=== PATIENT | female | born 1965 | race Caucasian/White ===

== ENCOUNTER 2018-06-17 14:09 | Outpatient (CLI) | payer OTHER, SELFPAY ==
--- NOTE | 2018-06-17 14:41 | DI.RAD_ITS ---
SYMPTOMS/DIAGNOSIS: LT SHOULDER PAIN, M25.512 LEFT SHOULDER: Five views were obtained. No bony or soft tissue abnormality is seen apart from slight hypertrophic degenerative change at the AC joint.
== END 2018-06-17 14:29 ==
PROVIDERS: PCP Family Medicine; Visit Provider Family Medicine
DX: M25.512 Pain in left shoulder (principal); M19.012 Primary osteoarthritis, left shoulder
CPT/HCPCS: 73030

== ENCOUNTER 2018-09-30 11:21 | Outpatient (REF) | payer OTHER, SELFPAY ==
[2018-10-02 11:18] LABS: Hepatitis C Ab w Rflx HCV PCR Negative (NEGAT)
== END 2018-09-30 11:41 ==
LOC: NCHCN 11:21
PROVIDERS: PCP Family Medicine; Visit Provider Family Medicine
DX: Z11.59 Encounter for screening for other viral diseases (principal); Z00.00 Encounter for general adult medical examination without abnormal findings
CPT/HCPCS: 86803

== ENCOUNTER 2018-11-13 12:01 | Outpatient (CLI) | payer OTHER, SELFPAY ==
--- NOTE | 2018-11-13 15:46 | DI.MAMMO_ITS ---
SYMPTOM/DIAGNOSIS: SCREENING, Z12.31 MAMMOGRAM: Mammograms were interpreted according to the usual protocol including computer analysis with CAD system, tomosynthesis and C view imaging. Comparison with prior examinations. Breast density C. No suspicious masses or microcalcifications are seen. There is no definite evidence of malignancy. IMPRESSION: Category 1 - C. Negative mammogram. Routine screening is recommended. [facility] ASSESSMENT OF FINDINGS: Negative. Category 1. Patient will receive a letter notifying them of these results. Bi-RADS category C. The breasts are heterogeneously dense, which may obscure small masses.
== END 2018-11-13 12:21 ==
PROVIDERS: PCP Family Medicine; Visit Provider Family Medicine
DX: Z12.31 Encounter for screening mammogram for malignant neoplasm of breast (principal)
CPT/HCPCS: 77063; 77067

== ENCOUNTER 2019-03-17 10:21 | Outpatient (CLI) | payer OTHER, SELFPAY ==
[2019-03-17 11:57] LABS: Anion Gap 7.3 mmol/L (3-11); BUN 15 mg/dL (7-18); CO2 29.7 mmol/L (21.0-32.0); CREATININE 0.59 mg/dL (0.55-1.02); Calcium 9.2 mg/dL (8.5-10.1); Calculated LDL 114 mg/dL; Chloride 107 mmol/L (98-107); Cholesterol 213 mg/dL (50-200); Glucose 90 mg/dL (70-100); HDL Cholesterol 81 mg/dL (40-60); Potassium 4.2 mmol/L (3.5-5.1); Sodium 144 mmol/L (136-145); Triglyceride 91 mg/dL (30-150)
== END 2019-03-17 10:41 ==
PROVIDERS: PCP Family Medicine; Visit Provider Family Medicine
DX: Z00.00 Encounter for general adult medical examination without abnormal findings (principal); Z13.220 Encounter for screening for lipoid disorders; Z13.228 Encounter for screening for other metabolic disorders
CPT/HCPCS: 36415; 80048; 80061; 83721

== ENCOUNTER 2019-07-10 03:10 | Outpatient (CLI) | payer OTHER, SELFPAY ==
--- NOTE | 2019-07-10 13:45 | DI.US_ITS ---
EXAM: US PELVIS AND TRANSVAGINAL CLINICAL HISTORY: PELVIC PAIN R10.2, 3-4 MONTHS ASSOCIATED W/ BACK PAIN TECHNIQUE: Ultrasound performed using standard protocol. COMPARISON: PELVIS AND TRANSVAG from 05/17/2011 FINDINGS: Pelvic ultrasound was performed transabdominal and transvaginally. Please see the accompanying data sheet for measurements of the pelvic structures. Left ovary is nonvisualized. Right ovary is normal in appearance. There is a 17 millimeter in diameter fundal fibroid, which lies adjacent to the endometrial stripe an d which may be submucosal. Endometrial stripe is 1-2 millimeters in thickness and appears homogeneou s. No free fluid identified in the cul-de-sac. Limited scanning of the kidneys is unremarkable. IMPRESSION: Probable small uterine fibroid as described above, which may be submucosal. No other significant fin dings. Nonvisualized left ovary.
== END 2019-07-10 03:30 ==
PROVIDERS: PCP Family Medicine; Visit Provider Family Medicine
DX: R10.2 Pelvic and perineal pain (principal); M54.5 Low back pain; D25.9 Leiomyoma of uterus, unspecified
CPT/HCPCS: 76830; 76856

== ENCOUNTER 2020-02-11 00:59 | Outpatient (CLI) | payer OTHER, SELFPAY ==
--- NOTE | 2020-02-11 | DI.MAMMO_ITS ---
EXAM: MG MAMMO SCREENING CLINICAL HISTORY: SCREENING, Z12.31 TECHNIQUE: Bilateral full field digital CC and MLO mammographic images were obtained with 3D tomosyn thesis and utilizing computer aided detection (CAD). COMPARISON: Available for comparison. FINDINGS: Masses/Architectural Distortion: None seen. Microcalcifications: No suspicious pleomorphic-type are seen. Skin Thickening/Nipple Retraction: None. IMPRESSION: 1. No significant interval change with no specific features of malignancy noted. 2. Unless there is more urgent need, screening mammography is recommended, as per [employer] guidelines. BI-RADS Category 1 - Negative Breast Density - Category B - Scattered areas of fibroglandular density A negative radiographic report should not delay biopsy if a dominant or clinically suspicious mass is present. Up to ten percent of cancers are not identified on mammography. A negative report may reinforce clinical impression. Adenosis and dense breasts may obscure an underlying neoplasm. False positive reports average 6 to 10%. Patient will receive a letter notifying them of these results.
== END 2020-02-11 01:19 ==
PROVIDERS: PCP Family Medicine; Visit Provider Family Medicine
DX: Z12.31 Encounter for screening mammogram for malignant neoplasm of breast (principal)
CPT/HCPCS: 77063; 77067

== ENCOUNTER 2021-04-20 12:35 | Outpatient (REF) | payer OTHER, SELFPAY ==
[2021-04-20 15:13] LABS: Bilirubin Small (Negative); Blood Negative (Negative); Clarity Clear (Clear); Glucose Negative (Negative); Ketones Trace mg/dL (Negative); Leukocyte Esterase Negative (Negative); Nitrite Negative (Negative); Specific Gravity 1.025 (1.005-1.025); Urobilinogen 0.2 EU/dL (Up TO 0.2)
== END 2021-04-20 12:36 | disposition home or self-care (01) ==
LOC: NCHCN 12:35
PROVIDERS: PCP Family Medicine; Visit Provider Family Medicine
DX: R30.0 Dysuria (principal)
CPT/HCPCS: 81003

== ENCOUNTER 2021-04-25 09:29 | Outpatient (CLI) | payer OTHER, SELFPAY ==
--- NOTE | 2021-04-25 | DI.MAMMO_ITS ---
Exam(s) MAMMO SCREENING EXAM: MAMMO SCREENING CLINICAL HISTORY: SCREENING, Z12.31. TECHNIQUE: Bilateral full field digital CC and MLO mammographic images were obtained with 3D tomosyn thesis and utilizing computer aided detection (CAD). COMPARISON: Prior mammograms dating back to 2010, the most recent being February 2020. FINDINGS: There has been no significant change in the appearance and distribution of the fibroglandular tissue. Asymmetric tissue in the right breast is unchanged from prior studies. There are no new spiculated masses nor malignant appearing microcalcification groups. There is no significant architectural distortion nor skin thickening-retraction. IMPRESSION: No radiographic evidence of malignancy. BI-RADS Category 1 - Negative Breast Density - Category B - Scattered areas of fibroglandular density Breast density Category C or D implies that the patient has dense breast tissue. Dense breast tissue can make it harder to find cancer on a mammogram. Dense breast tissue is also associated with an incr eased risk of breast cancer. This information about the result of the mammogram report was provided to the patient to raise their awareness. Use this report when you speak with the patient about their risks for breast cancer, which includes their family history. At that time, you may recommend additional screening tests (Ultrasoun d or MRI) as these tests may add significant information. A negative radiographic report should not delay biopsy if a dominant or clinically suspicious mass is present. Up to ten percent of cancers are not identified on mammography. A negative report may reinforce clinical impression. Adenosis and dense breasts may obscure an underlying neoplasm. False positive reports average 6 to 10%. Patient will receive a letter notifying them of these results.
--- NOTE | 2021-04-25 13:18 | DI.RAD_ITS ---
Exam(s) XR KNEE LT 3V AP,LAT,ANIKA EXAM: XR KNEE LT 3V AP,LAT,ANIKA CLINICAL HISTORY: LT KNEE PAIN, M25.562. TECHNIQUE: 2D digital imaging was performed. COMPARISON: No exams were available for comparison FINDINGS: BONES: No acute fracture is present. No bony destructive lesion is seen. No significant degenerati ve changes. JOINTS: The knee is normally aligned. No joint effusion is seen. SOFT TISSUE: Normal. IMPRESSION: Normal radiographs of the left knee. DATA REPOSITORY: RADIATION DOSE DELIVERED:
== END 2021-04-25 09:49 ==
PROVIDERS: PCP Family Medicine; Visit Provider Family Medicine
DX: Z12.31 Encounter for screening mammogram for malignant neoplasm of breast (principal); M25.562 Pain in left knee
CPT/HCPCS: 73562; 77063; 77067

== ENCOUNTER 2021-06-16 15:30 | Outpatient (REF) | payer OTHER, SELFPAY ==
--- NOTE | 2021-06-16 14:45 | PAPFT_PTH ---
PATIENT: Nara Huerta LOC: [facility]#:[id number] AGE/SX: 55/F ROOM: RE06/16/[address]: Beverley Munoz : 1965 BED: DIS: 06/16/2021 SPEC #: [id number] RECD: 06/17/21 12:28 STATUS: FABRICE REShannon #: [id number] SUMIT: 06/16/21 14:[address]: Beverley Munoz DEPT: [facility] Cytology RECD BY: Jennifer Peters ENTERED: 06/17/21 12:28 SP TYPE: PAPFT OTHR DR: Elaine Palencia Tissues: 1 - CX/ENDOCX FOR PAP SMEARS Procedures: PAP THIN PREP/[facility] Screening HPV DNA PROBE Comments: [id number]
== END 2021-06-16 15:31 | disposition home or self-care (01) ==
LOC: LBN 15:30
PROVIDERS: PCP Family Medicine; Visit Provider Obstetrics & Gynecology Gynecology
DX: Z12.4 Encounter for screening for malignant neoplasm of cervix (principal); Z11.51 Encounter for screening for human papillomavirus (HPV)
CPT/HCPCS: 88142; 87624

== ENCOUNTER 2021-06-20 14:43 | Outpatient (CLI) | payer OTHER, SELFPAY ==
--- NOTE | 2021-06-20 14:00 | DI.RAD_ITS ---
Exam(s) XR KNEE RT 4V AP,LAT,ANIKA,PAT EXAM: XR KNEE RT 4V AP,LAT,ANIKA,PAT CLINICAL HISTORY: pain. TECHNIQUE: 2D digital imaging was performed. COMPARISON: CR XR KNEE LT 3V AP,LAT,ANIKA from 04/25/2021 FINDINGS: There is no evidence of fracture or joint effusion. No joint space narrowing. No patellar offset. No prominent joint effusion. Bone density normal. No lytic osseous lesions. IMPRESSION: DATA REPOSITORY: RADIATION DOSE DELIVERED:
== END 2021-06-20 14:44 | disposition home or self-care (01) ==
LOC: DIORS 14:44
PROVIDERS: PCP Family Medicine; Referring Provider Family Medicine; Visit Provider Physician Assistant Surgical
DX: M25.561 Pain in right knee (principal)
CPT/HCPCS: 73564

== ENCOUNTER 2022-02-06 16:24 | Outpatient (REF) | payer OTHER, SELFPAY ==
[2022-02-08 12:41] LABS: COVID-19 RT-PCR UVMMC Result Positive (Negative)
== END 2022-02-06 16:25 | disposition home or self-care (01) ==
LOC: NCHCN 16:24
PROVIDERS: PCP Family Medicine; Visit Provider Family Medicine
DX: Z20.822 Contact with and (suspected) exposure to COVID-19 (principal); J06.9 Acute upper respiratory infection, unspecified
CPT/HCPCS: U0003

== ENCOUNTER → 2022-02-24 00:12 | Outpatient (CLI) | payer OTHER, SELFPAY ==
--- OUTSIDE RECORDS SUMMARY | 2022-02-24 00:14 | XMS_ITS | Encounter Summary ---
:1965 Author Organization [facility] [place] [address] Care Team Providers Name Role Phone Elaine Palencia MD Primary Care Provider Reason for Visit Reason Comments Pain Management Encounter Details Date Type Department Care Team Description 04/05/2017 Office Visit Pain Management at [facility] Comp jamshid regional pain Soy NAIR syndrome type 1 of [facility] low er extremity, Drive DR unspecified laterality [place] [place] [facility] [address] [place] [address] [phone] Social History Tobacco Use Types Packs/Day Years Used Date Never Smoker Smokeless Tobacco: Never Used Alcohol Use Standard Drinks/Week Comments No 0 (1 standard drink = 0.6 oz pure alcoho l) Sex Assigned at Date Recorded Not on file documented as of this encounter Last Filed Vital Signs Vital Sign Reading Time Taken Comments Blood Pressure 116/60 04/05/2017 9:16 AM EDT Pulse 74 04/05/2017 9:16 AM EDT Temperature - - Respiratory Rate - - Oxygen Saturation 99% 04/05/2017 9:16 AM EDT Inhaled Oxygen Concentration - - Weight 50.8 kg (112 lb) 04/05/2017 9:16 AM EDT verbal Height 157.5 cm (5' 2) 04/05/2017 9:16 AM EDT Body Mass Index 20.49 04/05/2017 9:16 AM EDT documented in this encounter Progress Notes Heydi Potter MD - 04/05/2017 8:45 AM EDT Images from the original note were not included. PAIN CLINIC REEVALUATION PATIENT NAME: Nara Huerta : 1965 DATE OF SERVICE: 04/05/2017 Chief Complaint: Bilateral leg and foot pain CRWork related injury: 04/28/2015 Date of Initial Evaluation in the Pain Clinic: 02/26/17 Date of most recent evaluation in the Pain Clinic: 03/12/17 HPI: Subjective Nara Huerta is a 51 y.o. female who presents today for evaluation of bilateral foot and leg pain. The patient is accompanied by their Giulia, today. The history is obtained from the patient, and I have reviewed medical records provided by the referring physician and located in the electronic medical record to fill in gaps in the patient's recollection of events, treatments and outcomes. The patient has been seen by Dr. Gutierres for about [address] Kim at [facility]. Dr. Kim requested further evaluation. I do not have the notes from [facility] available to me today. The patient has hadsymptoms since a work related injury 04/28/15. 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 She was still having difficulty reaching them and she had leaned forward and the milk crates collapsed.She did not fracture any bones. She was evaluated by Orthopedics at [facility]. She had ongoing pain. She was referred to Dr. Gandhi and it was recommended that she be seen by Dr. Gutierres in [facility] at [facility]. INTERVAL HX: 03/12/17 At the last visit (02/26/17), the following plan was delineated: 1. UDS-last hydrocodone 625 am 2. Compounded ointment with ketamine 5%, diclofenac 3%, gabapentin 6%, lidocaine 5%, apply to painful area up to four times per day as needed. (ordered through [facility]). Pt did not receive this; her insurance would not pay for it. 3. STOP taking hydrocodone before starting low dose naltrexone 4. low dose naltrexone 4.5 mg at bedtime. ([facility]) the patient had to pay for this out of her own pocket. 5. Ketamine troches 10 mg, dissolve 1/2 jonel in mouth up to four times per day as needed. ([facility]) The patient did not get this; her insurance would not pay for this. The patient cannot afford this. 6. Follow up with Dr. Potter in 2-3 weeks (45 minutes) 04/05/2017 -the patient feels that she had better relief with low dose naltrexone without the ketamine troches.The troches did not change her pain. -the patient never received Compounded ointment with ketamine 5%, diclofenac 3%, gabapentin 6%, lidocaine 5%, apply to painful area up to four times per day as needed. (ordered through [facility]). Will change to ([facility]). The patient -she is taking low dose naltrexone 4.5 mg at bedtime. ([facility]) -she trialed Ketamine troches 10 mg, dissolve 1/2 jonel in mouth up to four times per day as needed. Will change to ([facility]). This was not helpful. -she is feeling more depressed and tired. -she has a follow up with Dr. Gandhi on May 01. LOCATION: Bilateral legs and feet. PAIN DESCRIPTION: aching, stabbing, burning or shooting; buzzing on the left PRESENT: all of the time. PAIN INCREASED BY:standing and walking. PAIN DECREASED BY: recumbency eases pain, but does not resolve pain. PAIN LEVEL 02/26/2017 03/12/17 04/05/2017 AT REST 7 7 WORST over past week 9 9 BEST over past week 7 7 AVERAGE over past week 7 7 CRPS symptoms: 02/26/2017 03/12/2017 SENSORY Sensitivity to touch, clothing, bed clothing present present Increased sensitivity to pain. present present VASOMOTOR Discoloration present present Sensitivity to cold??or heat Present-heat Present-heat Temperature asymmetry present present SUDOMOTOR/EDEMA swelling present present sweating present present MOTOR/TROPHIC Altered hair growth absent absent Altered nail growth present present Motor dysfunction weakness present present tremor present present dystonia absent absent Decreased ROM present present TREATMENTS/INTERVENTIONS CURRENT DATE HELPFUL? TRIALED DATE HELPFUL? NOT TRIALED PT extensive no TENS Scrambler tx 5 treatment no PROCEDURES/SURGERY TYPE DATE HELPFUL? NOT TRIALED EVALUATIONS: Dr. Gandhi Right lumbar sympathetic block no TESTING: MEDICATIONS: CURRENT HELPFUL? TRIALED HELPFUL? NOT TRIALED NSAID OPIOIDS hydrocodone 5/300 one per day Yes-slightly OTHER compounded ointment gabapentin, lidocaine, ketamine, diclofenac Low dose naltrexone 4.5 mg at bedtime. Ketamine troches 10 mg, dissolve 1/2 jonel in mouth up to four times per day as needed. The patienthad to pay for this; her insurance would not cover it. Yes- but insurance stopped paying for it. 04/05/2017 states that it may be helping no lyrica neurontin No, SE Oral or IV ketamine ANTIDEPRESSANT Amitriptyline 30 mg celexa for depression Yes-sleep cymbalta No MUSCLE RELAXANT Ativan for anxiety adderal for concentration Medical Cannabis-new, still trying to get formulation that is helpful IMAGING: ACTIVITY LEVEL: -limited by pain -normal activities of daily living with deliberation -not working any longer -rests a lot -not socializing Treatment Goals: -return to work (loved her job) -walk her dog, go shopping Mental Health Anxiety and depression since accident. OPIOID RISK ASSESSMENT OPIOID RISK TOOL Female Male 1. Family history of Substance Abuse Alcohol [] 1 [] 3 Illegal Drugs [] 2 [] 3 Prescription Drugs [] 4 [] 4 2. Personal History of Substance Abuse Alcohol [] 3 [] 3 Illegal Drugs [] 4 [] 4 Prescription Drugs [] 5 [] 5 3. Age (andrew box if 16-45) [] 1 [] 1 4. History of Preadolescent Sexual Abuse [] 3 [] 0 5. Psychological Disease Attention Deficit Disorder, Obsessive Compulsive D/o, Bipolar, Schizophrenia [] 2 [] 2 Depression [x] 1 [] 1 TOTAL: 1 Comments about ORT in relation to this patient: Opioid Risk Category: low risk 0-3 Total Score Risk Category: 0-3 = Low Risk 4-7 = Moderate Risk > 8 = High Risk Suicide/Homicide Risks Suicidal ideations No Suicidal plans No Homicidal ideations No Previous prescribers (Also see Patient Care Team section) Medical records reviewed? Worrisome findings? Dr. Sherwood Other significant history History of DUI or DWI? No History of incarceration? No History of discharge from another pain provider? No History of an inconsistent Urine Drug Screen? No Current use of a benzodiazepine? yes Current use of other RESIDENTIAL ROOFER HELPER depressant? No Current diagnosis of Obstructive Seep Apnea? {No CPAP use: No Repeated visits to acute care facilities of other care facilities seeking opioids? No Current ? No Repeated visits to urgent care facilities and/or emergency departments seeking opioids? No Evidence or risk of significant adverse events including falls or fractures? No Are you now or in past received methadone or suboxone (buprenorphine) from a clinic? No Ever participated in drug or alcohol rehabilitation program? No Share your pain medications or accept medications from family/friends? No Storage of opioids-locked yes ETOH use/ h/o abuse no/No Illicit drug use/abuse No MJ use Yes, Medical Cannabis [place] & [place] Prescription Drug Monitoring Program data reviewed? Yes 04/05/2017 Inconsistencies? No Urine drug screen ordered? No Adult Chronic Opioid Consent and Agreement signed? No Opioids prescribed? No Naloxone rx offered? No Prescribed? (instructions given) No (No) myD-H Pain 01/14/2016 VR12 - Physical Summary Component 31.92 VR12 - Mental Component Summary 24.62 MODEMS Expectation 80 Family History of Substance Abuse (Female) 0 Personal History of Substance Abuse(Female) 0 Age 0 History of Preadolescent sexual abuse(Female) 0 Psychological Disease 0 ORT Total Scores (Female) 0 PAST MEDICAL HISTORY: Past Medical History: Diagnosis Date ??? Anxiety ??? Depression ??? GERD (gastroesophageal reflux disease) ??? Joint pain PAST SURGICAL HISTORY: Past Surgical History: Procedure Laterality Date ??? FINGER OSTEOTOMY Left long finger, 10/21/14, Dr. Abarca ALLERGIES: Review of patient's allergies indicates no known allergies. MEDICATIONS: Medications 04/05/17 0914 Medication Sig Taking? NALTREXONE HCL (NALTREXONE ORAL) Take 4.5 mg by mouth nightly. Yes dextroamphetamine-amphetamine (ADDERALL XR) 10 mg Capsule, Sust. Release 24 hr Take 10 mg by mouth every morning. Yes citalopram (CELEXA) 40 mg Tablet take 1 tablet by mouth once daily Yes LORazepam (ATIVAN) 0.5 mg Tablet Take 0.5 mg by mouth daily. Yes amitriptyline (ELAVIL) 10 mg Tablet Take 1 tablet by mouth nightly. Patient taking differently: Take 30 mg by mouth nightly. Yes amlodipine (NORVASC) 5 mg tablet Take 5 mg by mouth daily. Yes FAMILY HISTORY: Family History Problem Relation Age of Onset ??? Hypertension Mother ??? Hyperlipidemia Mother ??? Arthritis Mother ??? Diabetes Mother ??? Coronary Artery Disease Early Onset Maternal Grandfather SOCIAL HISTORY: Social History Social History ??? Marital status: Spouse name: N/A ??? Number of children: N/A ??? Years of education: N/A Occupational History ??? Not on file. Social History Main Topics ??? Smoking status: Never Smoker ??? Smokeless tobacco: Never Used ??? Alcohol use No ??? Drug use: No ??? Sexual activity: Not on file Other Topics Concern ??? Not on file Social History Narrative Review of Systems PHYSICAL EXAM: BP 116/60 Pulse 74 Ht 157.5 cm (5' 2) Wt 50.8 kg (112 lb) Comment: verbal SpO2 99% BMI 20.49 kg/m2 Physical Exam Constitutional: She is oriented to person, place, and time. She appears well- developed and well-nourished. Neurological: She is alert and oriented to person, place, and time. Psychiatric: She has a normal mood and affect. Her behavior is normal. Judgment and thought content normal. CRPS SIGNS: 02/26/2017 03/12/17 SENSORY Allodynia Dynamic 9-rt, 0 left 9-rt, 0 left Allodynia: Static 9-rt, 0 left 9-rt, 0 left Joint tenderness to movemen Large joint present Ankle right greater than left. present Ankle right greater than left Joint tenderness to movemen Small joint present right greater than left present right greater than left Hyperalgesia (to pinprick): present right greater than left present right greater than lef VASOMOTOR Color changes present present Spread of cold sensation not examined not examined Temperature asymmetry: present Rt-74.5 Left-72.2 present Rt-72.6 Left-72.5 SUDOMOTOR/EDEMA Hyperhidrosis present right present right Swelling present-mild lateral sub maleolar Right pretibial, mid tibia present-mild lateral sub maleolar Right pretibial, mid tibia New, 03/12/2017, left knee swelling MOTOR/TROPHIC Altered hair growth absent absent Altered nail growth absent absent Motor dysfunction weakness Present 3/5 F/E right ankle Unable to examine strength with F/E at knee due to pain (allodynia) Present 3/5 F/E right ankle Unable to examine strength with F/E at knee due to pain (allodynia) tremor absent absent dystonia absent absent Decreased ROM Present right greater than left. Present right greater than left. ASSESSMENT: Assessment 1. Complex regional pain syndrome type 1 of lower extremity, unspecified laterality The patient has had leg and foot pain, bilateral since a work related injury. The patient has evidence of CRPS. The patient has signs and symptoms consistent with CRPS. This includes symptoms in three of the following categories: sensory, vasomotor, sudomotor/edema and motor/trophic changes. There is also one sign in two or more of these categories. There is continued pain disproportionate to the inciting incident. There is no other diagnosis that better explains the signs and symptoms. The patient,therefore, meets the diagnostic criteria of the International Association for the Study of Pain for CRPS, [place] criteria. The CRPS has manifested as a result of the work related injury. The patient has not responded to physical medicine, pharmacologic or interventional pain management to date, but I do not believe the she is at [facility] at this time. In order to determine that, she would need to be able to trial pharmacologic options. She has benefited from Compounded ointment with ketamine 5%, diclofenac 3%, gabapentin 6%, lidocaine 5% in the past, and I recommended continuing this (please see below), when the patient was last seen. Her insurance company would not cover this. She cannot afford to pay for this. Compounded ointment with ketamine 5%, works at the NMDA receptor which is in volved in propagating the pathophysiology of CRPS. Receptors are present in the peripheri and centrally. I will start oral ketamine. We have reviewed the pathophysiology of CRPS. The patient has not responded to physical medicine, pharmacologic or interventional pain management to date. Given that the pathophysiology is multifactorial and include neuro immune interactions, inflammation, central sensitization, neurogenic inflammation, the treatment is multifactorial as well. Ketamine works at the NMDA receptor which is involved in propagating the pathophysiology of CRPS. Receptors are present in the peripheri and centrally. I willstart oral ketamine. We discussed low dose naltrexone which can help with the component of CRPS related to microglial inflammation. The patient has stopped hydrocodone and then started using the naltrexone. She has had no change in symptoms. We discussed that naltrexone works best by taking advantage of the synergistic effect of polypharmacy. Naltrexone works well with oral and topical ketamine. The patient's insurance company is preventing the patient from receiving treatment that she needs in order to mitigate signs and symptoms. There is evidence in the literature regarding the efficacy of IV ketamine and oral low dose naltrexone. We have discussed that opioids are not usually helpful in treating neuropathic pain, except in dosestoo high to consider prescribing. Opioids excite the NMDA receptor, and can perpetuate CRPS symptoms. The patient did stop taking hydrocodone; this has not affected her pain level, as expected. Today we discussed low dose outpatient ketamine infusion. Today we discussed risks and benefits, including but not limited to psychedelic symptoms (hallucinations, memory defects, panic attacks), nausea/vomiting, somnolence, cardiovascular stimulation, RESIDENTIAL ROOFER HELPER neurotoxicity. We discussed that medication will be given to try to prevent or mitigate side effects. The patient will need to have a powder truck driver and have someone with them at home after the infusion. They will also need to have cardiac and psychologicevaluation as well as labwork prior to proceeding with the infusion. . Written information was provided to the patient for review. We discussed that the ketamine infusion program at [facility] is now on hold. I have been referring patients to [facility]. When the ketamine infusion program was ongoing[facility], 9 patients with CRPS were reviewed and had over 70% improvement in pain, function and mood. The patient has difficulties with considering a trip to [place] for ketamine infusion. She has an elderly mother for whom her has to care for. There will be logistics involved in proceeding with this. PLAN: 1. Compounded ointment with ketamine 5%, diclofenac 3%, gabapentin 6%, lidocaine 5%, apply to painful area up to four times per day as needed. (ordered through [facility]). Will change to ([facility]) 2. Continue low dose naltrexone 4.5 mg at bedtime. ([facility]) 3. Ketamine troches 10 mg, dissolve 1/2 jonel in mouth up to four times per day as needed. Will change to ([facility]) 4. Continue other medication. 5. Consideration to low dose outpatient ketamine infusion. The patient will review the information. 5. Follow up with Dr. Potter in 3 weeks (45 minutes) Thank you for the opportunity to participate in Michealanthony [place]'s care. Please feel free to contactme with any questions. Sincerely, Heydi Potter MD [facility] [address] [address] / [facility] documented in this encounter Plan of Treatment Not on filedocumented as of this encounter Visit Diagnoses Diagnosis Complex regional pain syndrome type 1 of lower extremity, unspecified laterality documented in this encounter Care Teams Director Supplier Quality Relationship Specialty Start Date End Date Elaine Palencia MD PCP - General 10/12/11 [address] [place] [address] documented as of this encounter
--- OUTSIDE RECORDS SUMMARY | 2022-02-24 00:14 | XMS_ITS | Encounter Summary ---
:1965 [place] [address] Care Team Providers Name Role Phone Elaine Palencia MD Primary Care Provider Encounter Details Date Type Department Care Team Description 12/15/2016 [facility] [address] [place] [address] [place] [address] [phone] (Wo rk) Social History Tobacco Use Types Packs/Day Years Used Date Never Smoker Smokeless Tobacco: Never Used Alcohol Use Standard Drinks/Week Comments No 0 (1 standard drink = 0.6 oz pure alcoho l) Sex Assigned at Date Recorded Not on file documented as of this encounter Miscellaneous Notes Telephone Encounter - Maria C Masters CMA - 01/30/2017 1:32 PM EDT Cannot sign this note as it was sent to another user for [employer] documented in this encounter Plan of Treatment Not on filedocumented as of this encounter Visit Diagnoses Not on filedocumented in this encounter Care Teams Freelance Art Director Relationship Specialty Start Date End Date Elaine Palencia MD PCP - General 10/12/11 [address] [place], [place] [id number] documented as of this encounter
--- OUTSIDE RECORDS SUMMARY | 2022-02-24 00:14 | XMS_ITS | Encounter Summary ---
:1965 Author Organization [facility] [place] [address] Care Team Providers Name Role Phone Elaine Palencia MD Primary Care Provider Reason for Visit Reason Onset Date Comments Medication Refill 12/27/2017 Encounter Details Date Type Department Care Team Description 12/27/2017 Refill Pain Management at [facility], [place] [address] Social History Tobacco Use Types Packs/Day Years Used Date Never Smoker Smokeless Tobacco: Never Used Alcohol Use Standard Drinks/Week Comments No 0 (1 standard drink = 0.6 oz pure alcoho l) Sex Assigned at Date Recorded Not on file documented as of this encounter Plan of Treatment Not on filedocumented as of this encounter Visit Diagnoses Not on filedocumented in this encounter Care Teams Tester Operator Helper Relationship Specialty Start Date End Date Elaine Palencia MD PCP - General 10/12/11 [address] [place] [address] documented as of this encounter
--- OUTSIDE RECORDS SUMMARY | 2022-02-24 00:14 | XMS_ITS | Encounter Summary ---
:1965 [place] [address] Care Team Providers Name Role Phone Elaine Palencia MD Primary Care Provider Encounter Details Date Type Department Care Team Description 11/02/2016 Office Visit Occupational Medicine Rani Gutierres Wor k related injury; at [address] Chronic pain due to trauma [address] [place] [address] [place] [address] OCCUPATIONAL MEDICINE [place], [place] [address] Social History Tobacco Use Types Packs/Day Years Used Date Never Smoker Smokeless Tobacco: Never Used Alcohol Use Standard Drinks/Week Comments No 0 (1 standard drink = 0.6 oz pure alcoho l) Sex Assigned at Date Recorded Not on file documented as of this encounter Last Filed Vital Signs Vital Sign Reading Time Taken Comments Blood Pressure 108/70 11/02/2016 2:38 PM EST Pulse 87 11/02/2016 2:38 PM EST Temperature - - Respiratory Rate - - Oxygen Saturation - - Inhaled Oxygen Concentration - - Weight - - Height - - Body Mass Index - - documented in this encounter Progress Notes Rani Gutierres MD - 11/02/2016 2:30 PM EST [facility] OCCUPATIONAL AND ENVIRONMENTAL MEDICINE FOLLOW UP VISIT Date of Injury: April 28, 2015. Date of Intake: January 18, 2016. Employer: [employer]. Work Status: Out of work. 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 She has been doing EMDR treatment. I have had a discussion with her therapist and decision was made to proceed with a trial of eidetic memory reprocessing, a short-course limbic based therapy for trauma recovery for patients with recurrent injury movies. The treatment aims to re-establish the patient's ability to maintain an observation ego followed by reprocessing of the memory through the use of trauma theatre guided imagery which leads to self-induced rapid eye movement therapy. This approach is used most extensively by the [facility] occupational medicine and psychology program in [place] to successfully return traumatically work-injured patients to work. Symptoms are unchanged today. O: Vitals: 11/02/16 1438 BP: 108/70 Pulse: 87 She is alert and pleasant, in no acute distress but move uncomfortably. She demonstrates no exaggerated pain behaviors. Speech is clear and coherent. Affect is down, but overall brighter than when we initially started seeing her. EMR technique was described and initiated. After five trials, she was able to successfully maintain observational perspective for half of the movie without emotional reaction. 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 First session of eidetic memory reprocessing for trauma recovery was successful in beginning to re-establish the observational ego. P: 1. Follow up in one week for second EMR session. We anticipate that at the conclusion of treatment her brain will stop running the trauma movie and that her injury- related mood symptoms, and possibly pain, will be less. Although this technique focuses exclusively on her work injury fall and trauma, given her complex trauma history, if we are not able to progress past the first phase or otherwise plateau, we will refer her to Dr. Dl Gupta at [facility] to complete the therapy. 2. Continue counseling per discussion with treating therapist, which will exclude running of the trauma movie. Therapist notified by phone that EMR treatment was initiated. 3. I reviewed Dr. Sorto's orthopedic note and review of the LE MRI which does confirm muscle herniation. No surgical treatments are available for this and recommendation was to continue to pursue chronic neuropathic pain treatment. 4. She will continue the pain cream, given that she is getting some pain relief. 5. Remainder of treatment plan per previous note. She is not at [facility]. WC form completed out of work given intractable pain and inability to ambulate. The entirety of this 60 minute visit was spent providing eidetic memory reprocessing treatment per protocol for trauma recovery. Rani Gutierres MD - 11/02/2016 2:30 PM EST NCM contact: ?? Shayla Disla, RN, BSN, MSN ? Bi Manager ? [address] ? [place] [address] ? Cell Phone: ? Fax: ? [email or web address] documented in this encounter Plan of Treatment Not on filedocumented as of this encounter Visit Diagnoses Diagnosis Work related injury Injury, other and unspecified, unspecifi ed site Chronic pain due to trauma documented in this encounter Care Teams Cloth Framer Relationship Specialty Start Date End Date Elaine Palencia MD PCP - General 10/12/11 [address] [place] [address] documented as of this encounter
--- OUTSIDE RECORDS SUMMARY | 2022-02-24 00:14 | XMS_ITS | Encounter Summary ---
:1965 Author Organization [facility] [place] [address] Care Team Providers Name Role Phone Elaine Palencia MD Primary Care Provider Encounter Details Date Type Department Care Team Description 11/16/2016 Telephone Care Management Alana Mcclellan, [place] [address] Social History Tobacco Use Types Packs/Day Years Used Date Never Smoker Smokeless Tobacco: Never Used Alcohol Use Standard Drinks/Week Comments No 0 (1 standard drink = 0.6 oz pure alcoho l) Sex Assigned at Date Recorded Not on file documented as of this encounter Miscellaneous Notes Telephone Encounter - Alana Mcclellan, JOY LOADER - 11/16/2016 4:11 PM EDT [facility] FOLLOW UP CONTINUING CARE MANAGEMENT SOCIAL WORK ? CLAIM # [id number] DOI: ??04/28/15 INSURANCE COMAPANY: [employer] CONTACT:Lalo Cao NCM: Shayla Balderas Phone: Director Motion Picture: Bere Farrell CBT therapist: Tiffanie Nielson : CALL FROM Pt's psychotherapist. REASON FOR CALL: We discussed the pt's current behavioral health treatment and status. Caller notes that pt has actually been doing worse with her post injury symptoms of pain, depression and PTSD in the last few weeks. We reviewed the EMR process and the pt's work on this. The results appear to be similar as the EMDR process that the caller used. We did discuss the fact that pt is on many medications and that perhaps a medication review would be helpful. In particular, pt was started on a stimulantto try to improve her focus and this does not seem to be having any positive impact. Caller with review this with pt and consider reviewing with pt's PCP. Caller requests that we refer pt to psychiatryfor a medication review. [facility] reviewed this conversation with Dr Gutierres. documented in this encounter Plan of Treatment Not on filedocumented as of this encounter Visit Diagnoses Not on filedocumented in this encounter Care Teams Lockstitch Waistline Joiner Relationship Specialty Start Date End Date Elaine Palencia MD PCP - General 10/12/11 [address] [place] [address] documented as of this encounter
--- OUTSIDE RECORDS SUMMARY | 2022-02-24 00:14 | XMS_ITS | Encounter Summary ---
:1965 [place] [address] Care Team Providers Name Role Phone Elaine Palencia MD Primary Care Provider Encounter Details Date Type Department Care Team Description 03/22/2017 [facility] [address] [place] [address] [place] [address] [phone] (Wo rk) Social History Tobacco Use Types [...] on filedocumented in this encounter Care Teams Laborer Pie Bakery Relationship Specialty Start Date End Date Elaine Palencia MD PCP - General 10/12/11 [address] [place], [place] [id number] documented as of this encounter
--- OUTSIDE RECORDS SUMMARY | 2022-02-24 00:14 | XMS_ITS | Encounter Summary ---
:1965 Author Organization [facility] Address [address] [place] [address] Care Team Providers Name Role Phone Elaine Palencia MD Primary Care Provider Reason for Visit Reason Comments Pain Management Encounter Details Date Type Department Care Team Description 03/12/2017 Office Visit Pain Management at [facility]di Potter Comp jamshid regional pain Soy NAIR syndrome type 1 of [facility] low er extremity, Drive DR unspecified laterality [place], [place] [facility] [address] [place] [address] [phone] Social History Tobacco Use Types Packs/Day Years Used Date Never Smoker Smokeless Tobacco: Never Used Alcohol Use Standard Drinks/Week Comments No 0 (1 standard drink = 0.6 oz pure alcoho l) Sex Assigned at Date Recorded Not on file documented as of this encounter Last Filed Vital Signs Vital Sign Reading Time Taken Comments Blood Pressure 110/77 03/12/2017 9:32 AM EDT Pulse 99 03/12/2017 9:32 AM EDT Temperature - - Respiratory Rate - - Oxygen Saturation 100% 03/12/2017 9:32 AM EDT Inhaled Oxygen Concentration - - Weight 50.8 kg (112 lb) 03/12/2017 9:32 AM EDT Height 157.5 cm (5' 2) 03/12/2017 9:32 AM EDT Body Mass Index 20.49 03/12/2017 9:32 AM EDT documented in this encounter Progress Notes Heydi Potter MD - 03/12/2017 9:45 AM EDT Images from the original note were not included. PAIN CLINIC REEVALUATION PATIENT NAME: Nara Huerta : 1965 DATE OF SERVICE: 03/12/2017 Chief Complaint: Bilateral leg and foot pain CRWork related injury: 04/28/2015 Date of Initial Evaluation in the Pain Clinic: 02/26/17 Date of most recent evaluation in the Pain Clinic: 02/26/17 HPI: Subjective Nara Huerta is a 51 [...] about [address] Kim at [facility]. Dr. Kim requested further evaluation. I do not have the notes from [facility] available to me today. The patient has hadsymptoms since a work related injury 04/28/15. 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 The patient stepped on a chair and then to stacked milk crates to get some papers that were on a high shelf. She was still having difficulty reaching them and she had leaned forward and the milk crates collapsed.She did not fracture any bones. She was evaluated by Orthopedics at [facility]. She had ongoing pain. She was referred to Dr. Gandhi and it was recommended that she be seen by Dr. Gutierres in [facility] INTERVAL HX: 03/12/17 At the last visit (02/26/17), the following plan was delineated: 1. UDS-last hydrocodone 625 am 2. Compounded ointment with ketamine 5%, diclofenac 3%, gabapentin 6%, lidocaine 5%, apply to painful area up to four times per day as needed. (ordered through [facility]). Pt did not receive this; her insurance would not pay for it. 3. STOP taking hydrocodone before starting low dose naltrexone 4. low dose naltrexone 4.5 mg at bedtime. ([facility]) the patient had to pay for this out of her own pocket. 5. Ketamine troches 10 mg, dissolve 1/2 jonel in mouth up to four times per day as needed. ([facility]) The patient did not get this; her insurance would not pay for this. The patient cannot afford this. 6. Follow up with Dr. Potter in 2-3 weeks (45 minutes) -the patient reports that on March 03 she woke up with left knee pain., swelling, color changes and was shiny. She did not injure it. LOCATION: Bilateral legs and feet. PAIN DESCRIPTION: aching, stabbing, burning or shooting; buzzing on the left PRESENT: all of the time. PAIN INCREASED BY:standing and walking. PAIN DECREASED BY: recumbency eases pain, but does not resolve pain. PAIN LEVEL 02/26/2017 03/12/2017 AT REST 7 7 WORST over past [...] Low dose naltrexone 4.5 mg at bedtime. Pt could not get oral ketamine or ointment; insurance would not cover. Yes-but insurance stopped paying for it. no lyrica neurontin No, SE Oral or [...] a benzodiazepine? yes Current use of other [place] depressant? No Current diagnosis of Obstructive Seep [...] Prescription Drug Monitoring Program data reviewed? Yes 03/12/2017 Inconsistencies? No Urine drug screen ordered? No [...] allergies indicates no known allergies. MEDICATIONS: Medications 03/12/17 0958 Medication Sig Taking? dextroamphetamine-amphetamine (ADDERALL XR) 10 mg Capsule, Sust. Release 24 hr daily. Yes citalopram (CELEXA) 40 mg Tablet take 1 tablet by mouth once daily Yes LORazepam (ATIVAN) 0.5 mg Tablet Yes amitriptyline (ELAVIL) 10 mg Tablet Take 1 tablet by mouth nightly. Patient taking differently: Take 20 mg by mouth. Yes amlodipine (NORVASC) 5 mg tablet Take 5 mg by mouth daily. Yes HYDROcodone-acetaminophen (VICODIN) 5-300 mg Tablet Reported on 03/12/2017 FAMILY HISTORY: Family History Problem Relation Age [...] Narrative Review of Systems PHYSICAL EXAM: BP 110/77 Pulse 99 Ht 157.5 cm (5' 2) Wt 50.8 kg (112 lb) SpO2 100% BMI 20.49 kg/m2 Physical Exam Constitutional: She [...] Her insurance company would not cover this. We have reviewed the pathophysiology of CRPS. The patient has not responded to physical medicine, pharmacologic or interventional pain management to date. Given that the pathophysiology is multifactorial and include neuro immune interactions, inflammation, central sensitization, neurogenic inflammation, the treatment is multifactorial as well. We discussed starting Compounded ointment with ketamine 5%, diclofenac 3%, gabapentin 6%, lidocaine 5%. Ketamine works at the NMDA receptor which is involved in propagating the pathophysiology of CRPS. Receptors are present in the peripheri and centrally. I will start oral ketamine. I will start the patient on low dose naltrexone which can help with the component of CRPS related tomicroglial inflammation. The patient has stopped hydrocodone and then started using the naltrexone. She has had no change in symptoms. We discussed that naltrexone works best by taking advantage of the synergistic effect of polypharmacy. Naltrexone works well with oral and topical ketamine. The patient's insurance company is preventing the patient from recieving treatment that she needs in order to mitigate signs and symptoms. We have discussed that opioids are not usually helpful in treating neuropathic pain, except in dosestoo high to consider prescribing. Opioids excite the NMDA receptor, and can perpetuate CRPS symptoms. The patient did stop taking hydrocodone; this has not affected her pain level, as expected. The patient and I will address other treatment options at the next visit, including Low dose outpatient ketamine infusion. PLAN: 1. Compounded ointment with ketamine 5%, diclofenac 3%, gabapentin 6%, lidocaine 5%, apply to painful area up to four times per day as needed. (ordered through [facility]). Will change to ([facility]) 2. Continue low dose naltrexone 4.5 mg at bedtime. ([facility]) 3. Ketamine troches 10 mg, dissolve 1/2 jonel in mouth up to four times per day as needed. Will change to ([facility]) 4. Continue other medication. 5. Follow up with Dr. Potter in 3 weeks (45 minutes) Thank you for the opportunity to participate in Nara Huerta's care. Please feel free to contactme with any questions. Sincerely, Heydi Potter MD [facility] [address] [address] / [facility] documented in this encounter Plan of Treatment Not on filedocumented as of this encounter Visit Diagnoses Diagnosis Complex regional pain syndrome type 1 of lower extremity, unspecified laterality documented in this encounter Care Teams Electrolysist Relationship Specialty Start Date End Date Elaine Palencia MD PCP - General 10/12/11 [address] [place] [address] documented as of this encounter
--- OUTSIDE RECORDS SUMMARY | 2022-02-24 00:14 | XMS_ITS | Encounter Summary ---
:1965 Author Organization [facility] [place] [address] Care Team Providers Name Role Phone Elaine Palencia MD Primary Care Provider Encounter Details Date Type Department Care Team Description 04/11/2017 Telephone Pain Management [place] [address] Social History Tobacco Use Types Packs/Day Years Used Date Never Smoker Smokeless Tobacco: Never Used Alcohol Use Standard Drinks/Week Comments No 0 (1 standard drink = 0.6 oz pure alcoho l) Sex Assigned at Date Recorded Not on file documented as of this encounter Miscellaneous Notes Telephone Encounter - Sarah Garcia RN - 04/11/2017 7:44 AM EDT Pain Management Center Preauthorization Request Patient: Nara Huerta [id number] Call received from [facility] requesting we obtain prior authorization for Ketamine compound cream prescribed by Heydi Potter MD. RX insurance plan: [employer] w/c RX insurance telephone: Patient Diagnosis: Bilateral leg and foot pain Previous medications attempted: hydrocodone/acetaminophen, ibuprofen The following action was taken after discussion with the customer service leader: Spoke with veronica Wells Pharmacist at [facility]. [facility] Insurance requires peer to peer contact. This was relayed to pharmacist. Sarah Garcia RN documented in this encounter Plan of Treatment Not on filedocumented as of this encounter Visit Diagnoses Not on filedocumented in this encounter Care Teams Assembler Handbags Relationship Specialty Start Date End Date Elaine Palencia MD PCP - General 10/12/[address] [place] [address] documented as of this encounter
--- OUTSIDE RECORDS SUMMARY | 2022-02-24 00:14 | XMS_ITS | Encounter Summary ---
:1965 Author Organization [facility] [address] Care Team Providers Name Role Phone Elaine Palencia MD Primary Care Provider Encounter Details Date Type Department Care Team Description 11/09/2016 Telephone Care Management Eleuterio Alana Olga, [place] [address] Social History Tobacco Use Types Packs/Day Years Used Date Never Smoker Smokeless Tobacco: Never Used Alcohol Use Standard Drinks/Week Comments No 0 (1 standard drink = 0.6 oz pure alcoho l) Sex Assigned at Date Recorded Not on file documented as of this encounter Miscellaneous Notes Telephone Encounter - Eleuterio Alana Olga, EXIT BOOTH AGENT - 11/10/2016 1:12 PM EST Note [facility] FOLLOW UP CONTINUING CARE MANAGEMENT SOCIAL WORK ? CLAIM # [id number] DOI: ??04/28/15 INSURANCE COMAPANY: [employer] CONTACT:Lalo Cao NCM: Shayla Balderas Phone: Psychotherapist Social Worker: Bere Farrell CBT therapist: Tiffanie Nielson ?? S/O Nara Huerta was seen in [facility] with Dr Gutierres.. Pt was seen today for a second session of Eidetic Memory Reprocessing. The process was explained in detail and pt verified that she understood the process and that she is in complete control of the pace and content of the process. Pt was able to practice detaching herself from the traumatic event and was able to play the movie from a detached place for the entire movie. She did practice the next phase of the process but was not able to visualize the images and thus not able to rewind the movie.. She did make additional attempts. She did very well and understands that this will require additional practice. We ageed to meet again in either one or two weeks. She will review her schedule to confirm that she is available to returnnext week. ?? A/Pt tolerated the process well. She was able to activity engage in processing her experience. She does appear to have the ability to be successful with this. ?? P/ Patient will return in one week. documented in this encounter Plan of Treatment Not on filedocumented as of this encounter Visit Diagnoses Not on filedocumented in this encounter Care Teams Pediatric Sports Medicine Specialist Relationship Specialty Start Date End Date Elaine Palencia MD PCP - General 10/12/11 [address] [place] [address] documented as of this encounter
--- OUTSIDE RECORDS SUMMARY | 2022-02-24 00:14 | XMS_ITS | Encounter Summary ---
:1965 Author Organization [facility] [place] [address] Care Team Providers Name Role Phone Elaine Palencia MD Primary Care Provider Encounter Details Date Type Department Care Team Description 07/05/2017 Telephone Care Management [place] [address] Social History Tobacco Use Types Packs/Day Years Used Date Never Smoker Smokeless Tobacco: Never Used Alcohol Use Standard Drinks/Week Comments No 0 (1 standard drink = 0.6 oz pure alcoho l) Sex Assigned at Date Recorded Not on file documented as of this encounter Miscellaneous Notes Telephone Encounter - Alana Mcclellan MSW - 07/05/2017 6:08 PM EDT [facility] called Nara Huerta to review the option of having Dr Emmanuel do her PIR without another ov note. [facility] did contact pt assistant attorney general and reviewed the plan with her. Dr Gutierres will do IR based on her eval and Dr Potter' eval. Senior Property Manager suggests at lease a mention of lump on leg and abrasion of arm even if not ratable. documented in this encounter Plan of Treatment Not on filedocumented as of this encounter Visit Diagnoses Not on filedocumented in this encounter Care Teams Business Process Architect Relationship Specialty Start Date End Date Elaine Palencia MD PCP - General 10/12/11 [address] [place], [place] [id number] documented as of this encounter
--- OUTSIDE RECORDS SUMMARY | 2022-02-24 00:14 | XMS_ITS | Encounter Summary ---
:1965 Author Organization [facility] [place] [address] Care Team Providers Name Role Phone Elaine Palencia MD Primary Care Provider Encounter Details Date Type Department Care Team Description 12/13/2016 Telephone Care Management Alana Mcclellan, [place] [address] Social History Tobacco Use Types Packs/Day Years Used Date Never Smoker Smokeless Tobacco: Never Used Alcohol Use Standard Drinks/Week Comments No 0 (1 standard drink = 0.6 oz pure alcoho l) Sex Assigned at Date Recorded Not on file documented as of this encounter Miscellaneous Notes Telephone Encounter - Alana Mcclellan, COMPLIANCE CLERK - 12/13/2016 2:21 PM EDT [facility] FOLLOW UP CONTINUING CARE MANAGEMENT SOCIAL WORK ? CLAIM # [id number] DOI: ??04/28/15 INSURANCE COMAPANY: [employer] CONTACT:Lalo Cao NCM: Shayla Balderas Phone: Control Inspector: Bere Farrell CBT therapist: Tiffanie Nielson [place] calls to report that pt was seen by Dr Kim who offered her 1) sympathetic nerve block 2) SCStrial 3) methadone 4) medical marijuana. Pt has opted to try the nerve block. NCM did get a list of psychiatrists in [facility]. She will call to see if pt can get in to see someone. NCM will request that health insurance adjuster cancel BIN as pt has opted for nerve block. She will attend Dr Gutierres's follow up in January with pt. documented in this encounter Plan of Treatment Not on filedocumented as of this encounter Visit Diagnoses Not on filedocumented in this encounter Care Teams Arbor Press Operator Relationship Specialty Start Date End Date Elaine Palencia MD PCP - General 10/12/11 [address] [place] [address] documented as of this encounter
--- OUTSIDE RECORDS SUMMARY | 2022-02-24 00:14 | XMS_ITS | Encounter Summary ---
:1965 Author Organization [facility] [place] [address] Care Team Providers Name Role Phone Elaine Palencia MD Primary Care Provider Reason for Visit Reason Comments Advice Only tender nodules right axilla Consultation (Routine) - Closed Specialty Diagnoses / Procedures Referred By Contact Refer red To Contact Plastic Surgery Diagnoses Work related injury Rani Gutierres MD [facility] [place] [address] [place] [address] Referral ID Status Reason Start Date Expiration Date Visits V isits Requested Authorized [id number] Closed Consult, 09/08/2016 09/08/2017 1 1 Test & Treat Encounter Details Date Type Department Care Team Description 09/25/2016 Office Visit Plastic Surgery at [facility], Frankie Hines MD Benign lipomatous [facility] neoplasm of skin and [facility] subcutaneous tissue of [facility] PLASTIC SURGERY right arm [place], [place] [phone] Social History Tobacco Use Types Packs/Day Years Used Date Never Smoker Smokeless Tobacco: Never Used Alcohol Use Standard Drinks/Week Comments No 0 (1 standard drink = 0.6 oz pure alcoho l) Sex Assigned at Date Recorded Not on file documented as of this encounter Patient Instructions Patient InstructionsDevora Thompson RN - 09/25/2016 4:15 PM EST If you decide you want to proceed with surgery, call our secretaries to schedule--> [phone] You were given written and verbal preoperative instructions today. To prepare for your upcoming surgery, please review the Pre-Operative Instruction brochure that you were given at today's appointment. Remember to do the pre op wash as instructed, remove all jewelry, and wear clothing that is easy to get in and out of. There is no dietary restriction. You may eat and drink up until the time of your procedure. Feel free to call our office [phone] if you have any questions or concerns. We monitor the phones from 8-5 Sunday through Sunday. documented in this encounter Progress Notes Frankie Swan MD - 09/25/2016 4:15 PM EST Plastic Surgery Consultation Note Frankie Swan MD. PCP: Elaine Palencia MD CC: Subcutaneous nodules HPI: Nara Huerta is a 50 y.o. female here in consultation at the request of Rani Gutierres MD.She reports that she developed a small nodule on her arm last year. She appreciates pain along the back of her right arm, which has been increasing over time. She states that more nodules have developed over the past 4 months. She states that there are two lumps that are most bothersome and painful for her. Past Medical History Diagnosis Date ??? Anxiety ??? GERD (gastroesophageal reflux disease) ??? Joint pain Past Surgical History Procedure Laterality Date ??? Finger osteotomy Left long finger, 10/21/14, Dr. Abarca Social History Social History ??? Marital status: [...] ??? Not on file Social History Narrative Patient Active Problem List Diagnosis Date Noted ??? Chronic pain of lower extremity, bilateral 01/31/2016 ??? Work related injury 01/31/2016 ??? Tinea unguium 12/01/2014 ??? Eczematous dermatitis 12/01/2014 ??? Chronic paronychia 09/04/2013 ??? Other seborrheic keratosis 09/04/2013 ??? Hand pain 10/12/2011 ??? Perimenopausal 10/12/2011 ??? Fatigue 10/12/2011 ??? Preventative health care 05/24/2011 No Known Allergies Current Outpatient Prescriptions on File Prior to Visit Medication Sig Dispense Refill ??? triamcinolone (KENALOG) 0.1 % Cream Reported on 09/07/2016 0 ??? Ketamine (Bulk) 100 % Powd 10 %, Baclofen (Bulk) 100 % Powd 2 %, diclofenac sod, micro (bulk) 100 % Powd 3 %, Gabapentin (Bulk) 100 % Powd 6 %, Lidocaine HCl (Bulk) 100 % Powd 5 % Apply topically 4times daily. 240 g 5 ??? citalopram (CELEXA) 40 mg Tablet take 1 tablet by mouth once daily 0 ??? HYDROcodone-acetaminophen (VICODIN) 5-300 mg Tablet 0 ??? LORazepam (ATIVAN) 0.5 mg Tablet 0 ??? amitriptyline (ELAVIL) 10 mg Tablet Take 1 tablet by mouth nightly. (Patient taking differently:Take 20 mg by mouth.) 30 tablet 3 ??? amlodipine (NORVASC) 5 mg tablet Take 5 mg by mouth daily. No current facility-administered medications on file prior to visit. ROS: HEENT, GI, /Renal, Psych, Card, Pulm, Endo, Heme, Immun, Neuro: negative Examination: Constitutional: No acute distress Right underarm: Two, 1.5 cm palpable subcutaneous masses along anterior border of triceps 5 mm - 7 mm masses distal to anterior border of triceps Diagnostic Testing: Ultrasound reviewed today. Findings: In the right upper arm, where the patient indicates small soft tissue lumps, there are echogenic, avascular foci very suggestive of small lipomas. Impression: Nara Huerta 50 y.o. female patient with multiple lipomas along her right underarm. We discussed that the lipomas are not likely related to her previous fall and injury. I explained that I can remove the most bothersome lipomas for her. We discussed the procedure in detail. Regarding her pain, I explained that it sounds consistent with nerve pain. I explained that I do not treat nervepain. I assured her that anything excised is sent to pathology to rule out other pathologies. She will call to schedule an excision if she wishes to proceed. Plan: 1. Schedule excision procedure in minor surgery under local anesthetic MNS Procedure: Excision of lipomas Timeframe: elective Time allotted: 1 hour CPT : 13100 Follow up: 7-10 days I, Giselle Cunningham, am acting as scribe for Dr. Swan. All work documented was performed by Dr. Swan. ???I performed the above scribed service and agree with the accuracy of the note?? Frankie Swan MD Devora Thompson RN - 09/25/2016 4:15 PM EST Pre-Op Teaching for Surgery Surgery: Excision lipoma x two - right inner, upper arm. Written and verbal pre-operative instructions given and reviewed with patient and her . Narais not sure she wants to proceed with surgery. She is going to think about it and call us if she decides to proceed. She has correct phone numbers for contact. Patient was advised to discontinue use of NSAIDS and aspirin products (unless otherwise advised by patient's PCP/Cab Worker for cardiac symptoms), fish oil, Vitamin E and herbal supplements for 14 days prior to surgery, to perform the pre-op scrub, and to coordinate a ride home following surgery. Smoking status and medications were further reviewed to rule out/address current use of Nicotine, Coumadin, Plavix, Estrogen or Tamoxifen. Patient was told to call the clinic for any questions or concerns prior to surgery. documented in this encounter Plan of Treatment Scheduled Referrals Name Type Priority Associated Diagnoses Order S chedule Referral to Outpatient Referral Routine Work related injury O rdered: Plastic Surgery 09/08/2016 documented as of this encounter Visit Diagnoses Diagnosis Benign lipomatous neoplasm of skin and s ubcutaneous tissue of right arm documented in this encounter Care Teams Gearman Relationship Specialty Start Date End Date Elaine Palencia MD PCP - General 10/12/11 [address] [place] [address] documented as of this encounter
--- OUTSIDE RECORDS SUMMARY | 2022-02-24 00:14 | XMS_ITS | Encounter Summary ---
:1965 Author Organization [place] [address] Care Team Providers Name Role Phone Elaine Palencia MD Primary Care Provider Encounter Details Date Type Department Care Team Description 05/03/2017 External Results Neurology at [facility] Ceci Tavares, [facility] [place] [address] [facility] [phone] NEUROLOGY DEPT [place], [place] [address] (Wo rk) Social History Tobacco Use Types Packs/Day Years Used Date Never Smoker Smokeless Tobacco: Never Used Alcohol Use Standard Drinks/Week Comments No 0 (1 standard drink = 0.6 oz pure alcoho l) Sex Assigned at Date Recorded Not on file documented as of this encounter Plan of Treatment Not on filedocumented as of this encounter Procedures Procedure Name Priority Date/Time Associated Diagnosis Comme nts EMG SCAN Routine 05/01/2017 documented in this encounter Results Scan Doc: EMG (05/01/2017) Narrative This result has an attachment that is no t available. Ceci Tavares MD MEDIA MGR SCAN EXT ORDR/RSLT documented in this encounter Visit Diagnoses Not on filedocumented in this encounter Care Teams Travel Specialist Relationship Specialty Start Date End Date Elaine Palencia MD PCP - General 10/12/11 [address] [place], [place] [id number] documented as of this encounter
--- OUTSIDE RECORDS SUMMARY | 2022-02-24 00:14 | XMS_ITS | Encounter Summary ---
:1965 Author Organization [facility] [place] [place] [address] Care Team Providers Name Role Phone Elaine Palencia MD Primary Care Provider Encounter Details Date Type Department Care Team Description 10/27/2016 Orders Only Orthopaedics [place] [facility] [place]arioD[place] Work related injury [facility] [place] [address] [facility] [phone] ORTHOPAEDIC SURGERY [place] [address] Social History Tobacco Use Types Packs/Day Years [...] Injury, other and unspecified, unspecifi ed site documented in this encounter Care Teams Machine Packaging Technician Relationship Specialty Start Date End Date Elaine Palencia MD PCP - General 10/12/11 [address] [place] [address] documented as of this encounter
--- OUTSIDE RECORDS SUMMARY | 2022-02-24 00:14 | XMS_ITS | Encounter Summary ---
:1965 Author Organization [facility] [place] [address] Care Team Providers Name Role Phone Elaine Palencia MD Primary Care Provider Encounter Details Date Type Department Care Team Description 02/21/2017 Notes Only Care Management [place] [address] Social History Tobacco Use Types Packs/Day Years Used Date Never Smoker Smokeless Tobacco: Never Used Alcohol Use Standard Drinks/Week Comments No 0 (1 standard drink = 0.6 oz pure alcoho l) Sex Assigned at Date Recorded Not on file documented as of this encounter Progress Notes Alana Mcclellan MSW - 02/21/2017 4:48 PM EDT Letter to RTW sent to Pt as requested. documented in this encounter Plan of Treatment Not on filedocumented as of this encounter Visit Diagnoses Not on filedocumented in this encounter Care Teams Process Laboratory Specialist Relationship Specialty Start Date End Date Elaine Palencia MD PCP - General 10/12/11 [address] [place] [address] documented as of this encounter
--- OUTSIDE RECORDS SUMMARY | 2022-02-24 00:14 | XMS_ITS | Encounter Summary ---
:1965 [place] [address] Care Team Providers Name Role Phone Elaine Palencia MD Primary Care Provider Encounter Details Date Type Department Care Team Description 05/01/2017 Telephone Care Management Alana Mcclellan, SENIOR DIRECTOR OF [employer] [address] Social History Tobacco Use Types Packs/Day Years Used Date Never Smoker Smokeless Tobacco: Never Used Alcohol Use Standard Drinks/Week Comments No 0 (1 standard drink = 0.6 oz pure alcoho l) Sex Assigned at Date Recorded Not on file documented as of this encounter Miscellaneous Notes Telephone Encounter - Eleuterio Alana Olga, SENIOR DIRECTOR OF [employer] - 05/01/2017 3:44 PM EDT [facility] FOLLOW UP CONTINUING CARE MANAGEMENT SOCIAL WORK ? CLAIM # [id number] DOI: ??04/28/15 INSURANCE COMAPANY: [employer] CONTACT:Lalo Cao NCM: Shayla Balderas Phone: Automatic Equipment Technician: Bere Farrell CBT therapist: Tiffanie Nielson S/O Nara Huerta was seen in Neurology with Dr Tavares. Please see provider note for ov details. Pt is accompanied by her . Pt notes that she has gotten some relief from any of the pain management options offered to date, however, [place] closed [place] claim and now denies further coverage. Her personal injury attorney is appealing but she is aware this nitza take 1-2 years. In the meantime Dr Potter has offered her some options that are not affordable to her and her health insurance will not cover. Dr Tavares will repeat the nerve conduction studies today to determine if there have been any changes. A/ Pt continues to struggle with chronic pain. She is in CBT treatment for management of this. She has been seen by a psychiatrist who is now treating the resultant depression. P/ CCM will be available as needed to all parties. documented in this encounter Plan of Treatment Not on filedocumented as of this encounter Visit Diagnoses Not on filedocumented in this encounter Care Teams Textile Slitting Machine Operator Relationship Specialty Start Date End Date Elaine Palencia MD PCP - General 10/12/11 [address] [place] [address] documented as of this encounter
--- OUTSIDE RECORDS SUMMARY | 2022-02-24 00:14 | XMS_ITS | Encounter Summary ---
:1965 Author Organization [facility] [place] [address] Care Team Providers Name Role Phone Elaine Palencia MD Primary Care Provider Reason for Visit Reason Comments Leg Pain bilateral lower leg pain Consultation (Routine) - Specialty Diagnoses / Procedures Referred By Contact Refer red To Contact Orthopaedics Diagnoses Work related injury Rani Gutierres MD Moschetti, Wayne E, MD [facility] DR DEREJE Moon [place] [address] Fax: Referral ID Status Reason Start Date Expiration Date Visits V isits Requested Authorized [id number] Consult, 10/05/2016 10/05/2017 1 1 Test & Treat Encounter Details Date Type Department Care Team Description 10/30/2016 Office Visit Orthopaedics at [facility] Darius Sorto Complex regional pain [facility] MD Red syndrome type [address] [place] [address] extremities [phone] ORTHOPAEDIC SURGERY [place] [address] Social History Tobacco Use Types Packs/Day Years Used Date Never Smoker Smokeless Tobacco: Never Used Alcohol Use Standard Drinks/Week Comments No 0 (1 standard drink = 0.6 oz pure alcoho l) Sex Assigned at Date Recorded Not on file documented as of this encounter Last Filed Vital Signs Vital Sign Reading Time Taken Comments Blood Pressure 107/69 10/30/2016 1:59 PM EST Pulse 74 10/30/2016 1:59 PM EST Temperature - - Respiratory Rate - - Oxygen Saturation - - Inhaled Oxygen Concentration - - Weight 51.3 kg (113 lb) 10/30/2016 1:59 PM EST verbal Height 157.5 cm (5' 2) 10/30/2016 1:59 PM EST verbal Body Mass Index 20.67 10/30/2016 1:59 PM EST documented in this encounter Progress Notes Alfredo Wooten MD - 10/30/2016 1:30 PM EST DATE OF INJURY: 04/27/2017 INJURY: Bilateral leg pain. HISTORY OF PRESENT ILLNESS: Nara is a 50-year-old female who a year and a half ago fell from standing on chairs and milk crates while reaching for something on a shelf at school when she fell onto her bilateral shins. She has had pain ever since then right greater than left. She thinks things have been getting worse. She has not had any treatment to relieve this. Pain is associated with numbness and tingling in the bilateral legs as well as color changes in her bilateral feet and swelling. Swelling is predominantly in the feet and toes but also in the right betancourt anteriorly where she has noted a bulge. This was not present before. She has severe allodynia type pain anytime anything brushes over her lower legs. PAST MEDICAL HISTORY: Anxiety, depression. MEDICATIONS: Updated and reviewed in eD-H. ALLERGIES: Updated and reviewed in eD-H. SOCIAL HISTORY: She does not smoke, she does not drink. She is not working currently. PHYSICAL EXAM: General: Appears anxious. Right lower extremity exam shows she has some swelling anteriorly in the region of her tibia anterior muscle. She has severe tenderness to palpation superficially as well as just superficially running a finger over her skin. This causes her to have exquisite pain. She has pain with tenderness to palpation throughout her entire leg as well as her knee and ankle. Her sensation is intact to light touch however, it is distorted due to pain. She has palpable DP and PT pulses. She has discoloration anterolaterally on her shins on the right side as well as distally in her toes on the left foot. Discoloration is predominantly blue hue and also a red hue of certain parts of her skin. She is not having any pain with hip range of motion bilaterally. On the left side her distortion and the sensation is more pronounced however, she has less tenderness to superficial palpation. IMAGING: MRI of her tibial and fibula which was done on September 22 was reviewed with the patient, this does not demonstrate any muscular changes. There is a question of the muscular herniation distally on the right side. X-rays of her tibia and fibula bilaterally which were obtained and reviewed today do not demonstrate any fracture or dislocation, periosteal changes or anything that would signify old fracture. ASSESSMENT AND PLAN: A 50-year-old female presenting with chronic regional pain syndrome over her bilateral lower extremities. The patient has severe pain which has been present for a little over a year and a half now, she has not had any relief from current treatments. She has allodynia type pain which is superficial rubbing of a finger over her skin which causes her to jump and causes her distress. She has been in contact with a Pain Center and she should continue this appointment. We do believe this is a chronic regional pain syndrome. Based on her imaging and multiple MRIs there is no surgical intervention that would help her at this time and only would make her current regional pain syndrome worse. She should follow up with her PCP in the Pain Center and see us on a p.r.n. basis. Darius Bradley MD - 10/30/2016 1:30 PM EST Images from the original note were not included. Department of Orthopaedics Division of Adult Joint Reconstructive Surgery October 30, 2016 I had the pleasure of evaluating Nara Huerta in clinic in conjunction with Dr. Wooten. I have seen the patient and reviewed the history/physical and I agree with the details as written. The assessment and plan were formulated in discussion with me and I agree with them as documented. In brief, this is a 50-year-old female who had a fall at work approximately 1 year ago. She has a very lengthy note and history outlined by Dr. Gutierres. In brief, she has pain in both her legs. She has some swelling on the lateral aspect of her right leg, what appears to be herniated muscle. She has had MRIs of both her legs, which do show some herniation of tibialis anterior on the right. This is consistent with her exam of a herniated muscle on the right. She has profound pain if I touch any area on her leg, though. The pain is not confined to the muscle; it is the entire length of the leg. Just by brushing my finger over her leg, she has profound pain, right greater than left. She also has discoloration of her foot with blue changes in the lateral aspect of her foot. She states that the foot will periodically turn blue or red and has multiple pictures demonstrating this. She has not tolerated Neurontin or Lyrica in the past. She has been seen in the pain clinic, as well as Neurology. I do not think the herniated tibialis anterior is causing her pain. Her pain pattern appears much more consistent with chronic regional pain syndrome. She has hyperesthesias and paresthesias down the leg. She is profoundly sensitive to touch. She also has discoloration of the skin and soft tissue in the foot and leg. She has no similar sensory changes in her upper extremity. I can examine her arms without any limitation, whereas if I touch her leg, she nearly jumps off the exam table. At this point, I do not think there is a surgical option from my standpoint to address the herniated muscle. I do not think any surgery would in fact improve her symptoms and may actually exacerbate the neurologic changes. I thinks he needs to explore further treatment for chronic regional pain syndrome, as this, in my opinion, is likely what is causing her symptoms. All questions were answered. Darius Sorto MD, MS Batter Depositor, Division of Adult Reconstructive Associate JusticeLeaf Coverer of Orthopaedics Department of Orthopaedics [facility] [phone] [email or web address] documented in this encounter Plan of Treatment Not on filedocumented as of this encounter Visit Diagnoses Diagnosis Complex regional pain syndrome type 1 of both lower extremities documented in this encounter Care Teams Neuroscience Specialist Relationship Specialty Start Date End Date Elaine Palencia MD PCP - General 10/12/11 [address] [place] [address] documented as of this encounter
--- OUTSIDE RECORDS SUMMARY | 2022-02-24 00:14 | XMS_ITS | Encounter Summary ---
:1965 Author Organization [facility] [place] [address] Care Team Providers Name Role Phone Elaine Palencia MD Primary Care Provider Encounter Details Date Type Department Care Team Description 11/23/2016 Office Visit Occupational Medicine Rani Gutierres, Michele onic pain of lower extremity, bilateral; at [address] Work related injury; [address] [facility] Bl[place] [address] [place] [address] OCCUPATIONAL MEDICINE [place] [id number] Social History Tobacco Use Types Packs/Day Years Used Date Never Smoker Smokeless Tobacco: Never Used Alcohol Use Standard Drinks/Week Comments No 0 (1 standard drink = 0.6 oz pure alcoho l) Sex Assigned at Date Recorded Not on file documented as of this encounter Last Filed Vital Signs Vital Sign Reading Time Taken Comments Blood Pressure 120/71 11/23/2016 4:24 PM EDT Pulse 87 11/23/2016 4:24 PM EDT Temperature - - Respiratory Rate - - Oxygen Saturation - - Inhaled Oxygen Concentration - - Weight - - Height - - Body Mass Index - - documented in this encounter Progress Notes Rani Gutierres MD - 11/23/2016 4:[address] [facility] OCCUPATIONAL AND ENVIRONMENTAL MEDICINE FOLLOW UP VISIT Date of Injury: April 28, 2015. Date of Intake: January 18, 2016. Employer: [employer]. Work Status: Out of work. 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 Symptoms are spreading up the lower extremity. She has had an BIN appointment with Dr. Baldwin. O: Vitals: 11/23/16 1624 BP: 120/71 Pulse: 87 She is alert and pleasant, in no acute distress but move uncomfortably. Gait is antalgic and slow. She demonstrates no exaggerated pain behaviors. She sits on the exam table with legs extended. Speech is clear and coherent. Affect is sad. Per recent conversation with her counselor, pain questionnaire rating is worsening. 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 First phase of eidetic memory reprocessing for trauma recovery was successful completed to re-establish the observational ego. We were unable to progress to phase two of EMR secondary to emotional, physical, and cognitive fatigue in the setting of worsening pain scores and difficulty concentrating on multiple psychotropic medications. Symp P: 1. Psychiatric medication review to potentially streamline medications and improve cognitive function. 2. Hold on EMR pending psychiatric medication review. Given her complex trauma history, if we are not able to progress past the first phase or otherwise plateau, we will refer her to Dr. Dl Gupta at [facility] to complete the therapy. 3. Continue counseling with treating therapist for chronic pain management and post traumatic symptoms. 4. Follow up visit with Dr. Gamaliel Kim at [facility] Pain Medicine for next steps for chronic neuropathic pain treatment, review of lumbar spine and need for repeat EDX studies, neurology consult, or spine consult as previously discussed, and consideration of stimulator trial. 5. Continue the pain cream, given that she is getting some pain relief from this. 6. She is not at [facility]. WC form completed out of work given intractable pain and inability to effectively ambulate. 7. Will await Dr. Baldwin's BIN report. This note sent to be forwarded to [facility] Shayla Disla who attended this visit. The entirety of this 40 minute visit was spent discussing diagnoses, treatment options, treatment plan, medications, and work capacity using a shared decision making approach. Rani Gutierres MD - 11/23/2016 4:00 PM EDT Plan per Pain Medicine: Saw her at [facility] yesterday. Seems very depressed. ? Plan: ? Lumbar sympathetic block, medical cannabis, [facility] pain group, psych eval for meds then if former not working SCS trial, consider methadone Plan: Agree with above. Rani Gutierres MD, PhD, MPH, FACOEM Director Of Email Marketing Section of Occupational and Environmental Medicine Department of Medicine [facility] documented in this encounter Plan of Treatment Not on filedocumented as of this encounter Visit Diagnoses Diagnosis Chronic pain of lower extremity, bilater al Work related injury Injury, other and unspecified, unspecifi ed site Blunt trauma of multiple sites Injury, other and unspecified, other spe cified sites, including multiple documented in this encounter Care Teams Cargo Operations Agent Relationship Specialty Start Date End Date Elaine Palencia MD PCP - General 10/12/11 [address] [place] [address] documented as of this encounter
--- OUTSIDE RECORDS SUMMARY | 2022-02-24 00:14 | XMS_ITS | Encounter Summary ---
:1965 Author Organization [facility] [place] [address] Care Team Providers Name Role Phone Elaine Palencia MD Primary Care Provider Reason for Visit Reason Comments Pain Management Encounter Details Date Type Department Care Team Description 05/10/2017 Office Visit Pain Management at [facility] Comp jamshid regional pain Soy NAIR syndrome type 1 of [facility] low er extremity, Drive DR unspecified laterality [place], [place] [facility] [address] [place] [address] [phone] Social History Tobacco Use Types Packs/Day Years Used Date Never Smoker Smokeless Tobacco: Never Used Alcohol Use Standard Drinks/Week Comments No 0 (1 standard drink = 0.6 oz pure alcoho l) Sex Assigned at Date Recorded Not on file documented as of this encounter Last Filed Vital Signs Vital Sign Reading Time Taken Comments Blood Pressure 120/78 05/10/2017 11:46 AM EDT Pulse 91 05/10/2017 11:46 AM EDT Temperature - - Respiratory Rate - - Oxygen Saturation 100% 05/10/2017 11:46 AM EDT Inhaled Oxygen Concentration - - Weight - - Height - - Body Mass Index - - documented in this encounter Progress Notes Heydi Potter MD - 05/10/2017 11:45 AM EDT Images from the original note were not included. PAIN CLINIC REEVALUATION PATIENT NAME: Nara Huerta : 1965 DATE OF SERVICE: 05/10/2017 Chief Complaint: Bilateral leg and foot pain CRWork related injury: 04/28/2015 Date of Initial Evaluation in the Pain Clinic: 02/26/17 Date of most recent evaluation in the Pain Clinic: HPI: Subjective Nara Huerta is a 51 [...] about [address] Kim at [facility]. Dr. Kim requested further evaluation. I do not have the notes from [facility] available to me today. The patient has hadsymptoms since a work related injury 04/28/15. 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 The patient stepped on a chair and then to stacked milk crates to get some papers that were on a high shelf. She was still having difficulty reaching them and she had leaned forward and the milk crates collapsed.She did not fracture any bones. She was evaluated by Orthopedics at [facility]. She had ongoing pain. She was referred to Dr. Gandhi and it was recommended that she be seen by Dr. Gutierres in Occ Med at [facility]. INTERVAL HX: 03/12/17 At the last visit (02/26/17), the following plan was delineated: 1. UDS-last hydrocodone 02/25 am 2. Compounded ointment with ketamine 5%, diclofenac 3%, gabapentin 6%, lidocaine 5%, apply to painful area up to four times per day as needed. (ordered through P). Pt did not receive this; her insurance would not pay for it. 3. STOP taking hydrocodone before starting low dose naltrexone 4. low dose naltrexone 4.5 mg at bedtime. ([facility]) the patient had to pay for this out of her own pocket. 5. Ketamine troches 10 mg, dissolve 1/2 jonel in mouth up to four times per day as needed. ([facility]) The patient did not get [...] times per day as needed. (ordered through [facility]). Will change to ([facility]). The patient -she is taking low dose naltrexone 4.5 mg at bedtime. ([facility]) -she trialed Ketamine troches 10 mg, dissolve 1/2 jonel in mouth up to four times per day as needed. Will change to ([facility]). This was not helpful. -she is feeling more depressed and tired. -she has a follow up with Dr. Tavares on May 01. 05/10/2017 -the patient had EMG 05/01/17 (see below) -the patient was referred to a psychiatrist Dr. Boyle. She has seen them once. He is going to change the patient's antidepressant. LOCATION: Bilateral legs and feet. PAIN DESCRIPTION: aching, stabbing, burning or shooting; buzzing on the left PRESENT: all of the time. PAIN INCREASED BY:standing and walking. PAIN DECREASED BY: recumbency eases pain, but does not resolve pain. PAIN LEVEL 02/26/2017 03/12/17 05/10/2017 AT REST 7 7 6-7 WORST over past week 9 9 7-8 BEST over past week 7 7 6 AVERAGE over past week 7 7 7 CRPS symptoms: 02/26/2017 03/12/2017 05/10/2017 SENSORY Sensitivity to touch, clothing, bed clothing present present present Increased sensitivity to pain. present present present VASOMOTOR Discoloration present present present Sensitivity to cold??or heat Present-heat Present-heat Present-heat Temperature asymmetry present present absent SUDOMOTOR/EDEMA swelling present present present sweating present present present MOTOR/TROPHIC Altered hair growth absent absent absent Altered nail growth present present absent Motor dysfunction weakness present present present tremor present present present dystonia absent absent absent Decreased ROM present present present TREATMENTS/INTERVENTIONS CURRENT DATE HELPFUL? TRIALED DATE HELPFUL? NOT TRIALED PT extensive no TENS Scrambler tx 5 treatment no PROCEDURES/SURGERY TYPE DATE HELPFUL? NOT TRIALED EVALUATIONS: Dr. Gandhi Right lumbar sympathetic block no TESTING: EMG, Dr. Tavares 05/01/17 Electrodiagnostic examination was compromised by poor tolerance of the procedure but suggestive of lesions affecting sensory branches including the left saphenous and right superficial peroneal nerves. These were subtle findings unassociated with needle EMG findings but correlate with her sensory examination. As there is no associated needle EMG findings, these lesions would be either very mild or past the takeoff to the most distal muscle - in the case of the superficial peroneal nerve, distal to peroneus longus, and in the case of the saphenous, distal to quadriceps. In this case, the most important intervention is to control symptoms and ensure there is no persistent compression. The MRI of the right lower extremity seems to have addressed this, although I don't have the film for my review. MEDICATIONS: CURRENT HELPFUL? TRIALED HELPFUL? NOT TRIALED NSAID OPIOIDS hydrocodone 5/300 one per day Yes-slightly OTHER compounded ointment gabapentin, lidocaine, ketamine, diclofenac Low dose naltrexone 4.5 mg at bedtime. Yes-but insurance stopped paying for it. states that it may be helping lyrica neurontin Ketamine troches 10 mg, dissolve 1/2 jonel in mouth up to four times per day as needed. The patienthad to pay for this; her insurance would not cover it. She felt it increased her anxiety. No, SE Altered sensorium, fatigue no Oral or IV ketamine ANTIDEPRESSANT Amitriptyline 30 mg effexor for depression Yes-sleep cymbalta No MUSCLE RELAXANT [...] a benzodiazepine? yes Current use of other OPERATIONS SECTION MANAGER depressant? No Current diagnosis of Obstructive Seep [...] Prescription Drug Monitoring Program data reviewed? Yes 05/10/2017 Inconsistencies? No Urine drug screen ordered? No [...] allergies indicates no known allergies. MEDICATIONS: Medications 05/10/17 1202 Medication Sig Taking? venlafaxine (EFFEXOR-XR) 37.5 mg Capsule, Sust. Release 24 hr Take 37.5 mg by mouth daily. Yes NALTREXONE HCL (NALTREXONE ORAL) Take 4.5 mg [...] by mouth nightly. Patient taking differently: Take 25 mg by mouth nightly. Yes amlodipine (NORVASC) 5 mg tablet Take 5 mg by mouth daily. Yes gabapentin (NEURONTIN) 100 mg Capsule 100 mg at bedtime for 4 nights, then 200 mg at bedtime for 4 nights then, 300 mg at bedtime for 4 nights then 400 mg at bedtime FAMILY HISTORY: Family History Problem Relation Age [...] ??? Alcohol use No ??? Drug use: Yes Special: Marijuana ??? Sexual activity: Not on file Other Topics Concern ??? Not on file Social History Narrative Review of Systems PHYSICAL EXAM: BP 120/78 Pulse 91 SpO2 100% Physical Exam Constitutional: She is oriented to person, place, and time. She appears well- developed and well-nourished. Neurological: She is alert and oriented to person, place, and time. Psychiatric: She has a normal mood and affect. Her behavior is normal. Judgment and thought content normal. CRPS SIGNS: 02/26/2017 03/12/17 05/10/2017 SENSORY Allodynia Dynamic 9-rt, 0 left 9-rt, 0 left 8-rt, 0 left Allodynia: Static 9-rt, 0 left 9-rt, 0 left 9-rt, 0 left Joint tenderness to movemen Large joint present Ankle right greater than left. present Ankle right greater than left present Ankle right greater than left Joint tenderness to movemen Small joint present right greater than left present right greater than left present right greater than left Hyperalgesia (to pinprick): present right greater than left present right greater than left present right greater than left VASOMOTOR Color changes present present present Spread of cold sensation not examined not examined not examined Temperature asymmetry: present Rt-74.5 Left-72.2 present Rt-79.1 Left-75.2 SUDOMOTOR/EDEMA Hyperhidrosis present right present right present right Swelling present-mild lateral sub maleolar Right pretibial, mid tibia present-mild lateral sub maleolar Right pretibial, mid tibia New, 03/12/2017, left knee swelling present-mild lateral sub maleolar Right pretibial, mid tibia New, 03/12/2017, left knee swelling MOTOR/TROPHIC Altered hair growth absent absent absent Altered nail growth absent absent absent Motor dysfunction weakness Present 3/5 F/E right ankle Unable to examine strength with F/E at knee due to pain (allodynia) Present 3/5 F/E right ankle Unable to examine strength with F/E at knee due to pain (allodynia) Present 3/5 F/E right ankle Unable to examine strength with F/E at knee due to pain (allodynia) tremor absent absent absent dystonia absent absent absent Decreased ROM Present right greater than left. Present right greater than left. Present right greater than lef ASSESSMENT: Assessment 1. Complex regional pain syndrome [...] for the Study of Pain for [facility], [facility]. The CRPS has manifested as a result of the work related injury. The patient has not responded to physical medicine, pharmacologic or interventional pain management to date, but I do not believe the she is at I at this time. In order to determine [...] are present in the peripheri and centrally. We have reviewed the pathophysiology of CRPS. [...] are present in the peripheri and centrally. The patient did not tolerate oral ketamine. We discussed low dose naltrexone [...] her pain level, as expected. The patient had side effects of somnolence from neurontin. We discussed retrialing it only at night.The patient is willing to do this. We have discussed low dose outpatient ketamine infusion. Today we discussed risks and benefits, including but not limited to psychedelic symptoms (hallucinations, memory defects, panic attacks), nausea/vomiting, somnolence, cardiovascular stimulation, OPERATIONS SECTION MANAGER neurotoxicity. We discussed that medication will be given to try to prevent or mitigate side effects. The patient will need to have a public transit bus driver and have someone with them at home after the infusion. They will also need to have cardiac and psychologic evaluation as well as labwork prior to proceeding with the infusion. . Written information was provided to the patient for review. We discussed that the ketamine infusion program at [facility] is now on hold.I have been referring patients to [facility]. When the ketamine infusion program was ongoing at [facility], 9 patients with CRPS were reviewed and had over 70% improvement in pain, function and mood. The patient has difficulties with considering a trip to [place] for ketamine infusion. She has an elderly mother for whom her has to care for. There will be logistics involved in proceeding with this. Unfortunately, at this time, treatment options are somewhat limited, since her insurance company is not covering treatments that can actually help this patient improve. PLAN: 1. Compounded ointment with ketamine 5%, diclofenac 3%, gabapentin 6%, lidocaine 5%, apply to painful area up to four times per day as needed. ([facility]) 2. Continue low dose naltrexone 4.5 mg at bedtime. ([facility]) 3.Neurontin according to the following schedule: 100 mg at bedtime for 4 nights, then 200 mg at bedtime for 4 nights then, 300 mg at bedtime for 4 nights then 400 mg at bedtime 4. Continue other medication. 5. Consideration to low dose outpatient ketamine infusion. 6. Follow up with Dr. Potter in 3-4 weeks (45 minutes) Thank you for the opportunity to participate in Nara Huerta's care. Please feel free to contactme with any questions. Sincerely, Heydi Potter MD Case Advocate of Anest[facility] [address] [address] / [facility] documented in this encounter Plan of Treatment Not on filedocumented as of this encounter Visit Diagnoses Diagnosis Complex regional pain syndrome type 1 of lower extremity, unspecified laterality documented in this encounter Care Teams Geography Professor Relationship Specialty Start Date End Date Slime, Elaine C, MD PCP - General 10/12/11 [address] [place] [address] documented as of this encounter
--- OUTSIDE RECORDS SUMMARY | 2022-02-24 00:14 | XMS_ITS | Encounter Summary ---
:1965 Author Organization [facility] [place] [address] Care Team Providers Name Role Phone Elaine Palencia MD Primary Care Provider Reason for Visit Reason Onset Date Comments Medication Refill 01/02/2018 Encounter Details Date Type Department Care Team Description 01/02/2018 Refill Pain Management at Jonathan Small MD [facility] [place] [address] PAIN CLINIC [phone] [place] [id number] (Wo rk) Social History Tobacco Use Types Packs/Day Years Used Date Never Smoker Smokeless Tobacco: Never Used Alcohol Use Standard Drinks/Week Comments No 0 (1 standard drink = 0.6 oz pure alcoho l) Sex Assigned at Date Recorded Not on file documented as of this encounter Miscellaneous Notes Addendum Note - Jonathan Bowers MD - 01/03/2018 11:56 AM EDT Addended by: JONATHAN BOWERS on: 01/03/2018 11:56 AM Modules accepted: Orders documented in this encounter Plan of Treatment Not on filedocumented as of this encounter Visit Diagnoses Not on filedocumented in this encounter Care Teams French Professor Relationship Specialty Start Date End Date Elaine Palencia MD PCP - General 10/12/11 [address] [place], [place] [id number] (work) documented as of this encounter
--- OUTSIDE RECORDS SUMMARY | 2022-02-24 00:14 | XMS_ITS | Encounter Summary ---
:1965 Author Organization [facility] [place] [address] Care Team Providers Name Role Phone Elaine Palencia MD Primary Care Provider Reason for Visit Reason Comments Follow-up Encounter Details Date Type Department Care Team Description 12/25/2017 Office Visit Pain Management at [facility] Comp jamshid regional pain syndrome type 1 of lower extremity, unspecified laterality; Soy NAIR Bilateral leg pain [facility] [address] [place] [facility] [address] [place] [address] [phone] Social History Tobacco Use Types Packs/Day Years Used Date Never Smoker Smokeless Tobacco: Never Used Alcohol Use Standard Drinks/Week Comments No 0 (1 standard drink = 0.6 oz pure alcoho l) Sex Assigned at Date Recorded Not on file documented as of this encounter Last Filed Vital Signs Vital Sign Reading Time Taken Comments Blood Pressure 124/80 12/25/2017 12:58 PM EDT Pulse 79 12/25/2017 12:58 PM EDT Temperature 36.6 ??C (97.9 ??F) 12/25/2017 12:58 PM EDT Respiratory Rate 16 12/25/2017 12:58 PM EDT Oxygen Saturation 100% 12/25/2017 12:58 PM EDT Inhaled Oxygen Concentration - - Weight 50.9 kg (112 lb 3.2 oz) 12/25/2017 12:58 PM EDT Height 165.1 cm (5' 5) 12/25/2017 12:58 PM EDT reporte d Body Mass Index 18.67 12/25/2017 12:58 PM EDT documented in this encounter Progress Notes Heydi Potter MD - 12/25/2017 1:00 PM EDT Images from the original note were not included. PAIN CLINIC REEVALUATION PATIENT NAME: Nara Huerta : 1965 DATE OF SERVICE: 12/25/2017 Chief Complaint: Bilateral leg and foot pain CRWork related injury: 04/28/2015 Date of Initial Evaluation in the Pain Clinic: 02/26/17 Date of most recent evaluation in the Pain Clinic: 08/21/17 HPI: Subjective Nara Huerta is a 52 y.o. female who presents today for evaluation [...] about [address] Kim at [facility]. Dr. Kim requested further evaluation. I do not have the notes from [facility] available to me today. The patient has hadsymptoms since a work related injury 04/28/15. 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 The patient stepped on a chair and then to stacked milk crates to get some papers that were on a high shelf. She was still having difficulty reaching them and she had leaned forward and the milk crates collapsed.She did not fracture any bones. She was evaluated by Orthopedics at [facility]. She had ongoing pain. She was referred to Dr. Gandhi and it was recommended that she be seen by Dr. Gutierres in [facility] at [facility]. INTERVAL HX: 03/12/17 At the last visit (02/26/17), the following plan was delineated: 1. UDS-last hydrocodone 6/25 am 2. Compounded ointment with ketamine 5%, diclofenac 3%, gabapentin 6%, lidocaine 5%, apply to painful area up to four times per day as needed. (ordered through [facility]). Pt did not receive this; her insurance would not pay for it. 3. STOP taking hydrocodone before starting low dose naltrexone 4. low dose naltrexone 4.5 mg at bedtime. ([facility]) the patient had to pay for this out of her own pocket. 5. Ketamine troches 10 mg, dissolve 1/2 jonel in mouth up to four times per day as needed. ([facility]) The patient did not get [...] times per day as needed. (ordered through [facility]). Will change to ([facility]). -she is taking low dose naltrexone 4.5 mg at bedtime. ([facility]) -she trialed Ketamine troches 10 mg, dissolve 1/2 jonel in mouth up to four times per day as needed. This was not helpful. -she is feeling more depressed and tired. -she has a follow up with Dr. Tavares on May 01. 05/10/2017 -the patient had EMG 05/01/17 (see below) -the patient was referred to a psychiatrist Dr. Boyle. She has seen them once. He is going to change the patient's antidepressant. 06/12/2017: -the patient started neurontin at bedtime. She was only able to get to 200 mg. She thinks it is helpful, but she has daytime somnolence. She is taking amitriptyline and effexor which also make her drowsy. -She has not been able to use Compounded ointment with ketamine 5%, diclofenac 3%, gabapentin 6%, lidocaine 5%, apply to painful area up to four times per day as needed because her insurance company will not cover it. ([facility]) -the patient is very frustrated and feels that she is suffering needlessly because she can't have necessary treatment. 08/21/2017: 1. The patient had an evaluation of her medications. There were recommendations made for some drugs to discontinue. The patient was able to stop ativan. She has not been able to stop the adderal; her concentration was effected when she tried to stop it. She also noticed that when she tried to decreaseneurontin, her pain increased. 2. She has not been able to use Compounded ointment with ketamine 5%, diclofenac 3%, gabapentin 6%, lidocaine 5%, apply to painful area up to four times per day as needed because her insurance company will not cover it. ([facility]) 3. She finds the amitriptyline helpful for sleep. 4. She is using low dose naltrexone 4.5 mg at bedtime, but is finding it very expensive. Her insurance will not cover it. ([facility]). 5. The patient has a deposition coming up on September 12. 6. She continues to have severe pain and is very fatigued. 10/24/2017: -the patient started mirror therapy. She has gone three times. She is encouraged that is going to behelpful. won't cover it and they want her primary insurance to be billed. She cannot afford the copayments. -the patient was supposed to go for mediation. It has been delayed because they want the patient to have another BIN. -she has not been able to trial Compounded ointment with ketamine 5%, diclofenac 3%, gabapentin 6%, lidocaine 5%. -she is using low dose naltrexone 4.5 mg at bedtime but is paying out of pocket. Her funds are very limited. 12/25/2017 -the patient was evaluated by Dr. Bowers. She has not undergone mediation yet, because they were waiting for that evaluation. -she is taking neurontin, amitriptyline, neurontin. Her insurance is not covering it. -she has not been able to trial Compounded ointment with ketamine 5%, diclofenac 3%, gabapentin 6%, lidocaine 5% - won't cover PT and they want her primary insurance to be billed. She cannot afford the copayments. -She did not download the aurelia recognise which is graded motor imagery. She could not find it. -the patient continues to see a therapist. She sees the psychiatrist intermittently for medication management. LOCATION: Bilateral legs and feet. PAIN DESCRIPTION: aching, stabbing, burning or shooting; buzzing on the left PRESENT: all of the time. PAIN INCREASED BY:standing and walking. PAIN DECREASED BY: recumbency eases pain, but does not resolve pain. PAIN LEVEL 02/26/2017 03/12/17 05/10/17 06/12/17 08/21/17 10/24/17 12/25/17 AT REST 7 7 6-7 6-7 6-7 6-7 7 WORST over past week 9 9 7-8 6-7 6-7 9 8 BEST over past week 7 7 6 6-7 6-7 6-7 5-6 AVERAGE over past week 7 7 7 6-7 6-7 6-7 5-6 CRPS symptoms: 02/26/2017 03/12/2017 05/10/2017 08/21/17 10/24/2017 SENSORY Right greater than left Right greater than left Sensitivity to touch, clothing, bed clothing present present present present present Increased sensitivity to pain. present present present present pesent VASOMOTOR Discoloration present present present present present Sensitivity to cold??or heat Present-heat Present-heat Present-heat Present-heat Present-heat Temperature asymmetry present present absent Present-right warmer Present-right warmer SUDOMOTOR/EDEMA swelling present present present present present sweating present present present present present MOTOR/TROPHIC Altered hair growth absent absent absent absent absent Altered nail growth present present absent absent absent Motor dysfunction weakness present present present present present tremor present present present present present dystonia absent absent absent absent absent Decreased ROM present present present present present TREATMENTS/INTERVENTIONS CURRENT DATE HELPFUL? TRIALED DATE HELPFUL? NOT TRIALED PT extensive no TENS Scrambler tx 5 treatment no Mirror therapy x GMI x PROCEDURES/SURGERY TYPE DATE HELPFUL? NOT TRIALED EVALUATIONS: Dr. Tavares Right lumbar sympathetic block no TESTING: EMG, [...] Low dose naltrexone 4.5 mg at bedtime. neurontin 200 mg Yes-but insurance stopped paying for it. yes Yes, but makes her very sleepy in the morning lyrica Ketamine troches 10 mg, dissolve 1/2 jonel [...] still trying to get formulation that is helpful-stopped using this per recommendation of physician who evaluated her medication IMAGING: ACTIVITY LEVEL: -limited by pain -normal [...] a benzodiazepine? 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 No Current diagnosis of Obstructive Seep [...] Prescription Drug Monitoring Program data reviewed? Yes 12/25/2017 Inconsistencies? No Urine drug screen ordered? No [...] allergies indicates no known allergies. MEDICATIONS: Medications 12/25/17 1302 Medication Sig Taking? naltrexone HCl (NALTREXONE ORAL) Take 4.5 mg by mouth nightly. Yes buPROPion (WELLBUTRIN SR OR ZYBAN) 150 mg Tablet Sustained Release 12 hr take 1 tablet by mouth every morning Yes venlafaxine (EFFEXOR-XR) 150 mg Capsule, Sust. Release 24 hr take 2 capsules by mouth every morning Yes gabapentin (NEURONTIN) 100 mg Capsule 100 mg at bedtime for 4 nights, then 200 mg at bedtime for 4 nights then, 300 mg at bedtime for 4 nights then 400 mg at bedtime Patient taking differently: 200 mg nightly. Indications: Neuropathic Pain Yes dextroamphetamine-amphetamine (ADDERALL XR) 10 mg Capsule, Sust. Release 24 hr Take 20 mg by mouth every morning. Yes amitriptyline (ELAVIL) 10 mg Tablet Take [...] file Social History Narrative Review of Systems Neurological: Negative for syncope. PHYSICAL EXAM: BP 124/80 Pulse 79 Temp 36.6 ??C (97.9 ??F) Resp 16 Ht 165.1 cm (5' 5) Comment: reported Wt 50.9 kg (112 lb 3.2 oz) SpO2 100% BMI 18.67 kg/m2 Physical Exam Constitutional: She is oriented to person, place, and time. She appears well- developed and well-nourished. Tired appearing Neurological: She is alert and oriented to person, place, and time. Psychiatric: Her behavior is normal. Judgment and thought content normal. Flat affect CRPS SIGNS: 02/26/2017 03/12/17 05/10/2017 08/21/17 10/24/17 SENSORY Allodynia Dynamic 9-rt, 0 left 9-rt, 0 left 8-rt, 0 left 8-rt, 0 left 8-rt, 5 left Allodynia: Static 9-rt, 0 left 9-rt, 0 left 9-rt, 0 left 9-rt, 0 left 8-rt, 5 left Joint tenderness to movemen Large joint present Ankle right greater than left. present Ankle right greater than left present Ankle right greater than left present Ankle right greater than left present [...] left VASOMOTOR Color changes present present present present Spread of cold sensation not examined not examined not examined not examined not examined Temperature asymmetry: present Rt-74.5 Left-72.2 present Rt-79.1 Left-75.2 present Rt-82 Left-78 present Rt-80 Left-76.7 SUDOMOTOR/EDEMA Hyperhidrosis present right present right present right present -LEFT present -LEFT Swelling present-mild lateral sub maleolar Right pretibial, mid tibia present-mild lateral sub maleolar Right pretibial, mid tibia New, 03/12/2017, left knee swelling present-mild lateral sub maleolar Right pretibial, mid tibia New, 03/12/2017, left knee swelling present-mild lateral sub maleolar Right pretibial, mid tibia, left knee swelling present-mild lateral sub maleolar Right pretibial, mid tibia, left knee swelling MOTOR/TROPHIC Altered hair growth absent absent absent absent absent Altered nail growth absent absent absent absent absent Motor dysfunction weakness Present [...] with F/E at knee due to pain (allodynia), 5/5 LEFT ANKLE Present 3/5 F/E right ankle Unable to examine strength with F/E at knee due to pain (allodynia), 5/5 LEFT ANKLE tremor absent absent absent absent absent dystonia absent absent absent Present right Present -right Decreased ROM Present right greater than left. Present right greater than left. Present right greater than lef Present right greater than left, marked left ankle and toes Present right greater than left, marked left ankle and toes ASSESSMENT: Assessment 1. Complex regional pain syndrome type 1 of lower extremity, unspecified laterality 2. Bilateral leg pain The patient has had leg and foot [...] for the Study of Pain for CRPS, Budbannert criteria. The CRPS has manifested as a result of the work related injury. The patient now has spread to the left LE. The patient has not responded to physical [...] discussed retrialing it only at night.The patient has only been able to increase to 200 mg at bedtime due to daytime somnolence. We discussed that she could discontinue use of this. She notes a small benefit at this low dose and noticed it particularly when she tried to discontinue it. We have discussed low dose outpatient ketamine infusion. We have discussed risks and benefits, including but not limited to psychedelic symptoms (hallucinations, memory defects, panic attacks), nausea/vomiting, somnolence, cardiovascular stimulation, BOAT CANVAS INSTALLER neurotoxicity. We discussed that medication will be given to try to prevent or mitigate side effects. The patient will need to have a route driver and have someone with them at home after the infusion. They will also need to have cardiac and psychologic evaluation as well as labwork prior to proceeding with the infusion. Written information was provided to the patient for review. We discussed that the ketamine infusion program at [facility] is now on hold. I have been referring patients to [facility]. When the ketamine infusion program was ongoing at [facility], 9 patients with CRPS were reviewed and had over 70% improvement in pain, function and mood. The patient has difficulties with considering a trip to [place] for ketamine infusion. She has an elderly mother for whom her has to care for. There would be difficult logistics involved in proceeding with this. We briefly discussed the option of Spinal Cord Stimulation. She is fearful that the procedure may cause more or other harm and she is hesitant to pursue that procedure. Unfortunately, at this time, treatment options are somewhat limited, since her insurance company is not covering treatments that can actually help this patient improve. The patient has had extensive PT, but has never trialed graded motor imagery and mirror therapy.Bothhave been shown to be helpful in CRPS, in terms of contributing to cortical reorganization and neural plasticity. This can also then help to diminish pain. The patient and also discussed downloading the aurelia recognise which is graded motor imagery. The patient has started mirror therapy and is veryencouraged. Worker's comp will not cover. It is concerning that the patient had an BIN indicating that she did not have CRPS when there was nocriteria used to make that decision indicated in the note. It is clear that she has this diagnosis, based on the [place] criteria. It is with reasonable medical certainty that the patient's pain and need for the treatments outlined above were a result of their injury that occurred at [facility] on 04/28/15. We discussed that the signs and symptoms of CRPS can vary from visit to visit. ` PLAN: 1. Compounded ointment with ketamine 5%, diclofenac 3%, gabapentin 6%, lidocaine 5%, apply to painful area up to four times per day as needed. ([facility]) 2. Continue low dose naltrexone 4.5 mg at bedtime. Will rewrite this for [facility]. 3. Continue Neurontin 200 mg at bedtime as tolerated. 4. Download the aurelia recognise which is graded motor imagery. 5. Follow up with Dr. Potter in 8 weeks (45 minutes) 6. Recommend low dose outpatient ketamine infusion 7. Unfortunately, at this time, treatment options are somewhat limited, since her insurance company is not covering treatments that can actually help this patient improve. 8. Continue OT/PT using graded motor imagery and mirror therapy. 9. Follow up with Dr. Gutierres as needed. Thank you for the opportunity to participate in Nara Huerta's care. Please feel free to contactme with any questions. Sincerely, Heydi Potter MD Occupational Analyst of Anest[facility] [address] [address] / [facility] documented in this encounter Plan of Treatment Not on filedocumented as of this encounter Visit Diagnoses Diagnosis Complex regional pain syndrome type 1 of lower extremity, unspecified laterality Bilateral leg pain Pain in limb documented in this encounter Care Teams Hansard Reporter Relationship Specialty Start Date End Date Elaine Palencia MD PCP - General 10/12/11 [address] [place] [address] documented as of this encounter
--- OUTSIDE RECORDS SUMMARY | 2022-02-24 00:14 | XMS_ITS | Encounter Summary ---
:1965 [place] [address] Care Team Providers Name Role Phone Elaine Palencia MD Primary Care Provider Encounter Details Date Type Department Care Team Description 09/06/2017 Notes Only Occupational Medicine at Rani Gutierres MD [facility] [address] [place] [address] [place] [address] [phone] (Wo rk) Social History Tobacco Use Types Packs/Day Years Used Date Never Smoker Smokeless Tobacco: Never Used Alcohol Use Standard Drinks/Week Comments No 0 (1 standard drink = 0.6 oz pure alcoho l) Sex Assigned at Date Recorded Not on file documented as of this encounter Progress Notes Rani Gutierres MD - 09/06/2017 10:18 AM EST [facility] Please see patient letter. documented in this encounter Plan of Treatment Not on filedocumented as of this encounter Visit Diagnoses Not on filedocumented in this encounter Care Teams Braker Passenger Train Relationship Specialty Start Date End Date Elaine Palencia MD PCP - General 10/12/11 [address] [place], [place] [id number] documented as of this encounter
--- OUTSIDE RECORDS SUMMARY | 2022-02-24 00:14 | XMS_ITS | Encounter Summary ---
:1965 [place] [address] Care Team Providers Name Role Phone Elaine Palencia MD Primary Care Provider Encounter Details Date Type Department Care Team Description 03/22/2017 Telephone Care Management Alana Mcclellan, [place] [address] Social History Tobacco Use Types Packs/Day Years Used Date Never Smoker Smokeless Tobacco: Never Used Alcohol Use Standard Drinks/Week Comments No 0 (1 standard drink = 0.6 oz pure alcoho l) Sex Assigned at Date Recorded Not on file documented as of this encounter Progress Notes Alana Mcclellan, RAT EXTERMINATOR - 03/22/2017 3:06 PM EDT [facility] FOLLOW UP CONTINUING CARE MANAGEMENT SOCIAL WORK ? CLAIM # [id number] DOI: ??04/28/15 INSURANCE COMAPANY: [employer] CONTACT:Family Service Caseworkerjosé Cao NCM: Shayla Balderas Phone: Cotton Expert: Bere Farrell CBT therapist: Tiffanie Nielson S/O Nara Huerta was seen in [facility] with Dr Gutierres. Please see provider note for ov details. Pt was accompanied by her . Pt claim has been denied by . Her admitted attorneys is appealing this denial with the [place] [employer]. Thus she has no replacement wages and no medical coverage for treatment of her injuries. Pt is on SSDI but it is taking some time for them to beginning providing benefits now that wc has stopped. She continues to be very limited in her activities due to chronic pain. She continues to work with her therapist to address post injury trauma and depression/anxiety. A/ Pt is doing a bit better in terms of mood and PTSD symptoms. Pain continues to be very problematic. P/ Patient will keep appointments as scheduled. She will get a small trial of her oral Ketimine to see if that combined with the compounded cream is helpful with her pain. [facility] called admitted attorneys and reviewed the visit today. Dr Gutierres's note will be faxed whne ready. documented in this encounter Plan of Treatment Not on filedocumented as of this encounter Visit Diagnoses Not on filedocumented in this encounter Care Teams Nutritionist Relationship Specialty Start Date End Date Elaine Palencia MD PCP - General 10/12/11 [address] [place] [address] documented as of this encounter
--- OUTSIDE RECORDS SUMMARY | 2022-02-24 00:14 | XMS_ITS | Encounter Summary ---
:1965 [place] [address] Care Team Providers Name Role Phone Elaine Palencia MD Primary Care Provider Encounter Details Date Type Department Care Team Description 02/22/2017 Notes Only Occupational Medicine at Rani Gutierres MD [facility] [address] [place] [address] [place] [address] [phone] (Wo rk) Social History Tobacco Use Types Packs/Day Years Used Date Never Smoker Smokeless Tobacco: Never Used Alcohol Use Standard Drinks/Week Comments No 0 (1 standard drink = 0.6 oz pure alcoho l) Sex Assigned at Date Recorded Not on file documented as of this encounter Progress Notes Rani Gutierres MD - 02/22/2017 10:44 PM EDT I was asked to review BIN reports by Dr. Baldwin and Dr. South dated and 11/16/2016 and 12/25/2016. A full review of the inconsistencies and inaccuracies in these reports is beyond the scope of an office note and psychiatric BIN should be reviewed by her treating counselor; but I will briefly review the main issues below. In addition, please note that review of her medical record does not support the conclusions in the reports as detailed below. ?? First, the report is incorrect in stating that her physicians have stated she does not have CRPS.See office note excerpts below from multiple treating providers contradicting this statement and supporting a diagnosis of CRPS. She also has MRI findings of patchy marrow consistent with as diagnosis of CRPS. ?? Similarly, it is incorrect to state that there are no objective findings for her disability and that multiple imaging studies have shown no pathology in her lower legs. See office note excerpts below from multiple treating providers showing that these statements are false. Her medical record clearly documents orthopedic assessment of herniation of tibialis anterior muscle and MRI findings of swelling with persistent abnormal subcutaneous tissue consistent with a sheering injury. In addition, her electrodiagnostic studies showed some periphearl abnormalities as described below. ?? I disagree with the report that she is at medical end. She has additional medically reasonable treatment options, including Pain Medicine follow up visit as recommended by her treating providers jori to neurology for follow up evaluation. ?? I disagree with the report that there is no impairment. An impairment rating is not appropriate at this time because she is not at medical end. However, if she were at medical end, appropriate rating would be based lower extremity rating method of the 5th edition to the AMA Guides to the Evaluationof Permanent Impairment and would require measurements to be taken. Per page 553, this would be through the Gait and Station Disorder rating in Table 13-15. She meets criteria for Class 2 impairment of19% whole person impairment. ?? Furthermore, the report is internally inconsistent because it does not make sense to state that treatment has been reasonable and appropriate, that psychological evaluation is recommended for her condition, but that there is no causal relationship between the injury and her current symptoms. Furthermore, the report states that it is unfortunate that she has not responded to treatment. Lack of response to treatment does not equate with lack of ongoing sequela of her injury or lack of availability of other treatment options. ?? In contrast to the assessment in the report, Scrambler Therapy was medically indicated as this kristan low cost, non invasive treatment that is effective in ~80% for chronic neuropathic pain cases. Clinically, it made the most sense to try the least invasive, lowest side effect profile intervention for her chronic pain first before more expensive and invasive options. That she was in the 15 to 20% ofcases that do not respond, does not mean that a trial was not medically indicated. ?? Moreover, no formal causation analysis was applied in this report. Case meets [place] criteria for causation including temporal association between her symptoms and injury with symptoms immediately following her injury and persisting consistently since that time. Moreover, it is medically plausible to develop chronic neuropathic pain after a traumatic injury with documentation of nerve changes and muscle herniation in the lower extremity. In addition, there is consistency among the assessments of her treating providers as detailed below. And finally, there is no more likely explanation forher symptoms other than the injury. 09/06/2015: Neurology evaluation (Dr. Tavares) documented abnormal electrodiagnostic testing. Results showed a mild right saphenous nerve lesion and a left superficial peroneal nerve lesion that correlated with her sensory exam. Neuropathic pain medication was suggested as well as referral to the Pain Clinic : Orthopedic visit (Dr. Brooks) assessed a chronic pain syndrome precipitated by initially a contusion of the right more than the left leg...I think that a Pain Clinic referral to manage this evolving chronic pain syndrome along with compassionate physical therapy is certainly warranted. 01/14/2016: Pain Medicine visit (Dr. Antonio and Dr. Thacker) noted, There is concerned that she may be developing complex regional pain syndrome. We are recommending that the compounded ointment that she can apply to her lower extremities up to 4 times a day and She has had electrodiagnositc testing with some peripheral nerve findings. She does not appear to have CRPS today on evaluation, but her symptoms, pieced together, suggest either CRPS or a peripheral neuropathy. Consider a lumbar sympathetic block, Cognitive Behavioral Therapy, and a compounded pain cream. 09/08/2016: Radiology review of lower leg MRI with Dr. Tejas Mendez noted that there is abnormal subcutaneous tissue in the area of the swelling that looks consistent with a sheering injury. He statedthat oblique injuries can result in sheering between the fat and fascial layers and can result in a fluid collection or Gibson-Ravin lesion. At this point, she does not have a discrete fluid collection, but there is definitely an abnormality in the subcutaneous fat. Alternately, he stated that thesetypes of oblique injuries can result in a fascial defect and that muscle can herniate through the fascia. This is can be seen better with active flexion and extension of the ankle on exam. A third finding is that there is patchy marrow signal changes in the ankle. He states this is very nonspecific, but can be seen in CRPS. ?? 10/30/2016: Orthopedic note (Dr. Moschetti): She has some swelling on the lateral aspect of her rightleg, what appears to be herniated muscle. She has had MRIs of both her legs, which do show some herniation of tibialis anterior on the right. This is consistent with her exam of a herniated muscle on the right. She also has discoloration of her foot with blue changes in the lateral aspect of her foot.She states that the foot will periodically turn blue or red and has multiple pictures demonstrating this. Her pain pattern appears much more consistent with chronic regional pain syndrome. She has hyperesthesias and paresthesias down the leg. I thinks she needs to explore further treatment for chronicregional pain syndrome, as this, in my opinion, is likely what is causing her symptoms. In summary, the assessments in the BIN report as listed above are not supported by a review of the medical record, do not accurately reflect the clinical facts of the case, and neglect to mention medically appropriate care recommended by her treating providers for this patient, who is highly compliantand motivated to get better and return to work. In terms of the psychiatric BIN, the report is incorrect to state that EMR was not indicated. Patient met the indications for treatment and had no contraindications to treatment (such as dissociation or DID). She has two to three visits of this limbic based therapy, not 31. EMR is a short course limbic based therapy that is typically completed without three sessions. Her lack of response to treatmentreflects that we are relatively new to providing this treatment and not that she was not an appropriate candidate. In fact, we reviewed her case with the national expert in this treatment prior to the first session to confirm that she was an appropriate candidate. Again, I will leave the details of the response to this report to her mental health providers, but overall, it is important to know whether the tests done in this report were culturally appropriate, accounted for her cultural background and that she is a non-[place]yanese speaker, and whether they were interpreted in this context. Regardless, malingering and symptom magnification, which even if they do exist, do not explain or account for her persistent abnormal MRI findings of lower extremity muscle hernia, lower extremity nerve function abnormalities on electrodiagnostic testing, lower extremity color changes and swelling documented by multiple treating providers and in photographs, and lower extremity bone marrow changes suggestive of CRPS on imaging. 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 I fully understand the challenges involved in accessing information from electronic medical records systems and for that reason additional care should be taken to ensure that assessments in independent evaluation reports are based on a complete treating record so that the reports can provide useful suggestions to facilitate faster and successful return to work. In terms of the status of this case, Ms. Huerta needs a follow up with CRPS expert, Dr. Negro Potter and a follow up with her neurologist. If no further treatment is recommended, I anticipate she will be at MMI with a rating as above of 19%. Otherwise, MMI determination will be deffered to the end of treatment. 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 Given nauseating pain with minimal walking, she may not be able to tolerate this, but it is certainly worth trying. She will call me if she needs any changes to this release. Rani Gutierres MD, PhD, MPH, FACOEM Customer Operations Manager Section of Occupational and Environmental Medicine Department of Medicine [employer] [facility] documented in this encounter Plan of Treatment Not on filedocumented as of this encounter Visit Diagnoses Not on filedocumented in this encounter Care Teams Aircraft Electrician Relationship Specialty Start Date End Date Elaine Palencia MD PCP - General 10/12/11 [address] [place] [address] documented as of this encounter
--- OUTSIDE RECORDS SUMMARY | 2022-02-24 00:14 | XMS_ITS | Encounter Summary ---
:1965 Author Organization [facility] [place] [address] Care Team Providers Name Role Phone Elaine Palencia MD Primary Care Provider Reason for Referral Consultation (Routine) - Duplicate Referral Specialty Diagnoses / Procedures Referred By Contact Refer red To Contact Orthopaedics Diagnoses Work related injury Rani Gutierres MD Moschetti, Wayne E, MD [facility] DR DEREJE FERNANDEZ E [place] [address] [place] [address] Fax: Referral ID Status Reason Start Expiration Visits Visits Date Date Requested Authorized [id number] Duplicate Consult, 10/11/2016 10/11/2017 1 1 Referral Test & Treat Encounter Details Date Type Department Care Team Description 10/05/2016 Orders Only Occupational Medicine at Rani Gutierres MD Work related injury [address] [facility] [address] [place] [address] OCCUPATIONAL [phone] MEDICINE [place] [id number] Social History Tobacco Use Types Packs/Day Years Used Date Never Smoker Smokeless Tobacco: Never Used Alcohol Use Standard Drinks/Week Comments No 0 (1 standard drink = 0.6 oz pure alcoho l) Sex Assigned at Date Recorded Not on file documented as of this encounter Plan of Treatment Scheduled Referrals Name Type Priority Associated Order Schedule Diagnoses Referral to Outpatient Referral Routine Work related injury O rdered: Orthopaedics 10/11/2016 documented as of this encounter Visit Diagnoses Diagnosis Work related injury Injury, other and unspecified, unspecifi ed site documented in this encounter Care Teams Oyster Opener Relationship Specialty Start Date End Date Elaine Palencia MD PCP - General 10/12/[address] [place] [address] documented as of this encounter
--- OUTSIDE RECORDS SUMMARY | 2022-02-24 00:14 | XMS_ITS | Encounter Summary ---
:1965 Author Organization [facility] [place] [address] Care Team Providers Name Role Phone Elaine Palencia MD Primary Care Provider Encounter Details Date Type Department Care Team Description 06/27/2017 Notes Only Care Management [place] [address] Social History Tobacco Use Types Packs/Day Years Used Date Never Smoker Smokeless Tobacco: Never Used Alcohol Use Standard Drinks/Week Comments No 0 (1 standard drink = 0.6 oz pure alcoho l) Sex Assigned at Date Recorded Not on file documented as of this encounter Progress Notes Alana Mcclellan MSW - 06/27/2017 5:29 PM EDT CCM called pt and left message. CCM will call back to review pt's request to talk prior to setting up follow up with Dr Gutierres. documented in this encounter Plan of Treatment Not on filedocumented as of this encounter Visit Diagnoses Not on filedocumented in this encounter Care Teams Talent Assistant Relationship Specialty Start Date End Date Elaine Palencia MD PCP - General 10/12/11 [address] [place] [address] documented as of this encounter
--- OUTSIDE RECORDS SUMMARY | 2022-02-24 00:14 | XMS_ITS | Encounter Summary ---
:1965 Author Organization [facility] Address [facility] [place] [address] Care Team Providers Name Role Phone Elaine Palencia MD Primary Care Provider Reason for Visit Reason Comments Pain Management Encounter Details Date Type Department Care Team Description 06/12/2017 Office Visit Pain Management at Heydi Potter Comp jamshid regional pain Soy NAIR syndrome type 1 of [facility] low er extremity, Drive DR unspecified laterality [place], [place] [facility] [address] [place] [address] [phone] Social History Tobacco Use Types Packs/Day Years Used Date Never Smoker Smokeless Tobacco: Never Used Alcohol Use Standard Drinks/Week Comments No 0 (1 standard drink = 0.6 oz pure alcoho l) Sex Assigned at Date Recorded Not on file documented as of this encounter Last Filed Vital Signs Vital Sign Reading Time Taken Comments Blood Pressure 119/82 06/12/2017 5:33 PM EDT Pulse 86 06/12/2017 5:33 PM EDT Temperature - - Respiratory Rate 18 06/12/2017 5:33 PM EDT Oxygen Saturation 100% 06/12/2017 5:33 PM EDT Inhaled Oxygen Concentration - - Weight 51.3 kg (113 lb) 06/12/2017 5:33 PM EDT Height 160 cm (5' 3) 06/12/2017 5:33 PM EDT Body Mass Index 20.02 06/12/2017 5:33 PM EDT documented in this encounter Progress Notes Heydi Potter MD - 06/12/2017 5:45 PM EDT Images from the original note were not included. PAIN CLINIC REEVALUATION PATIENT NAME: Nara Huerta : 1965 DATE OF SERVICE: 06/12/2017 Chief Complaint: Bilateral leg and foot pain CRWork related injury: 04/28/2015 Date of Initial Evaluation in the Pain Clinic: 02/26/17 Date of most recent evaluation in the Pain Clinic: 05/10/17 HPI: Subjective Nara Huerta is a 51 [...] about [address] Kim at [facility]. Dr. Kim requested further evaluation. I do not have the notes from [facility] available to me today. The patient has hadsymptoms since a work related injury 04/28/15. 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 The patient stepped on a chair and then to stacked milk crates to get some papers that were on a high shelf. She was still having difficulty reaching them and she had leaned forward and the milk crates collapsed.She did not fracture any bones. She was evaluated by Orthopedics at [facility]. She had ongoing pain. She was referred to Dr. Gandhi and it was recommended that she be seen by Dr. Gutierres in Occ Med at [facility]. INTERVAL HX: 03/12/17 At the last visit (02/26/17), the following plan was delineated: 1. UDS-last hydrocodone 6/25 am 2. Compounded ointment with ketamine 5%, diclofenac 3%, gabapentin 6%, lidocaine 5%, apply to painful area up to four times per day as needed. (ordered through [facility]). Pt did not receive this; her insurance would not pay for it. 3. STOP taking hydrocodone before starting low dose naltrexone 4. low dose naltrexone 4.5 mg at bedtime. ([facility]) the patient had to pay for this out of her own pocket. 5. Ketamine troches 10 mg, dissolve 1/2 jonel in mouth up to four times per day as needed. ([facility]) The patient did not get this; [...] times per day as needed. (ordered through [facility]). Will change to ([facility]). The patient -she is taking low dose naltrexone 4.5 mg at bedtime. ([facility]) -she trialed Ketamine troches 10 mg, dissolve 1/2 jonel in mouth up to four times per day as needed. Will change to ([facility]). This was not helpful. [...] her insurance company will not cover it. ([facility]) -the patient is very frustrated and feels that she is suffering needlessly because she can't have necessary treatment. LOCATION: Bilateral legs and feet. PAIN DESCRIPTION: aching, stabbing, burning or shooting; buzzing on the left PRESENT: all of the time. PAIN INCREASED BY:standing and walking. PAIN DECREASED BY: recumbency eases pain, but does not resolve pain. PAIN LEVEL 02/26/2017 03/12/17 05/10/2017 06/12/2017 AT REST 7 7 6-7 6-7 WORST over past week 9 9 7-8 6-7 BEST over past week 7 7 6 6-7 AVERAGE over past week 7 7 7 6-7 CRPS symptoms: 02/26/2017 03/12/2017 05/10/2017 SENSORY Sensitivity [...] a benzodiazepine? yes Current use of other NURSE QUALITY depressant? No Current diagnosis of Obstructive Seep [...] Prescription Drug Monitoring Program data reviewed? Yes 06/12/2017 Inconsistencies? No Urine drug screen ordered? No [...] allergies indicates no known allergies. MEDICATIONS: Medications 06/12/17 180 Medication Sig Taking? venlafaxine (EFFEXOR-XR) 150 mg Capsule, Sust. Release 24 hr take 2 capsules by mouth every morning Yes gabapentin (NEURONTIN) 100 mg Capsule 100 mg at bedtime for 4 nights, then 200 mg at bedtime for 4 nights then, 300 mg at bedtime for 4 nights then 400 mg at bedtime Patient taking differently: 200 mg nightly. Indications: Neuropathic Pain Yes NALTREXONE HCL (NALTREXONE ORAL) Take 4.5 mg by mouth nightly. Yes dextroamphetamine-amphetamine (ADDERALL XR) 10 mg Capsule, Sust. Release 24 hr Take 10 mg by mouth every morning. Yes LORazepam (ATIVAN) 0.5 mg Tablet Take [...] Narrative Review of Systems PHYSICAL EXAM: BP 119/82 Pulse 86 Resp 18 Ht 160 cm (5' 3) Wt 51.3 kg (113 lb) SpO2 100% BMI 20.02 kg/m2 Physical Exam Constitutional: She is oriented [...] absent absent absent Motor dysfunction weakness Present 11/05 F/E right ankle Unable to examine strength [...] for the Study of Pain [facility]. The CRPS has manifested as a [...] use of this. She notes a small benefit, but it does not outweigh the somnolence. We have discussed low dose outpatient ketamine infusion. We have discussed risks and benefits, including but not limited to psychedelic symptoms (hallucinations, memory defects, panic attacks), nausea/vomiting, somnolence, cardiovascular stimulation, NURSE QUALITY neurotoxicity. We discussed that medication will be given to try to prevent or mitigate side effects. The patient will need to have a school bus driver/teacher assistant and have someone with them at home after the infusion. They will also need to have cardiac and psychologic evaluation as well as labwork prior to proceeding with the infusion. . Written information was provided to the patient for review. We discussed that the ketamine infusion program at [facility] is now on hold. I have been referring patients to [facility]. When the ketamine infusion program was ongoing at [facility], 9 patients with CRPS were reviewed and had over 70% improvement in pain, function and mood. The patient has difficulties with considering a trip to [place] for ketamine infusion. She has an elderly [...] to four times per day as needed. ([facility]) 2. Continue low dose naltrexone 4.5 mg at bedtime. ([facility]) 3. Continue Neurontin 200 mg at bedtime4. Continue other medication. 4. Consideration to low dose outpatient ketamine infusion. 5. Follow up with Dr. Potter in 4 weeks (30 minutes) 6. Recommend low dose outpatient ketamine infusion 7. Unfortunately, at this time, treatment options are somewhat limited, since her insurance company is not covering treatments that can actually help this patient improve. Thank you for the opportunity to participate in Nara Huerta's care. Please feel free to contactme with any questions. Sincerely, Heydi Potter MD Probation Counselor of Anesthesiology [facility] [address] [address] / [facility] I spent 38 minutes of this 45 minute visit in coordination of care and counseling the patient regarding CRPS as detailed above. documented in this encounter Plan of Treatment Not on filedocumented as of this encounter Visit Diagnoses Diagnosis Complex regional pain syndrome type 1 of lower extremity, unspecified laterality documented in this encounter Care Teams Revenue Cycle Consultant Relationship Specialty Start Date End Date Elaine Palencia MD PCP - General 10/12/11 [address]anna [address] [place] [address] documented as of this encounter
--- OUTSIDE RECORDS SUMMARY | 2022-02-24 00:14 | XMS_ITS | Encounter Summary ---
:1965 [place] [address] Care Team Providers Name Role Phone Elaine Palencia MD Primary Care Provider Reason for Referral Consultation (Routine) - Closed Specialty Diagnoses / Procedures Referred By Contact Refer red To Contact Diagnoses Work related injury Rani Gutierres MD [facility] Clin Pharmacology [facility] [place] [address] [place] [address] Referral ID Status Reason Start Date Expiration Date Visits V isits Requested Authorized [id number] Closed Consult, 06/07/2017 06/07/2018 1 1 Test & Treat Encounter Details Date Type Department Care Team Description 06/07/2017 Orders Only Occupational Medicine at Rani Gutierres MD Work related injury [facility] [address] [place] [address] OCCUPATIONAL [phone] [place], [place] [address] Social History Tobacco Use Types Packs/Day Years Used Date Never Smoker Smokeless Tobacco: Never Used Alcohol Use Standard Drinks/Week Comments No 0 (1 standard drink = 0.6 oz pure alcoho l) Sex Assigned at Date Recorded Not on file documented as of this encounter Plan of Treatment Scheduled Referrals Name Type Priority Associated Order Schedule Diagnoses Referral to Clinical Outpatient Referral Routine Work related injury Ordered: Pharmacology & 06/07/2017 Toxicology documented as of this encounter Visit Diagnoses Diagnosis Work related injury Injury, other and unspecified, unspecifi ed site documented in this encounter Care Teams Desktop Administrator Relationship Specialty Start Date End Date Elaine Palencia MD PCP - General 10/12/11 [address] [place] [address] documented as of this encounter
--- OUTSIDE RECORDS SUMMARY | 2022-02-24 00:14 | XMS_ITS | Encounter Summary ---
:1965 [place] [address] Care Team Providers Name Role Phone Elaine Palencia MD Primary Care Provider Encounter Details Date Type Department Care Team Description 11/02/2016 Telephone Care Management Alana Mcclellan, SUPERVISOR [place] [address] Social History Tobacco Use Types Packs/Day Years Used Date Never Smoker Smokeless Tobacco: Never Used Alcohol Use Standard Drinks/Week Comments No 0 (1 standard drink = 0.6 oz pure alcoho l) Sex Assigned at Date Recorded Not on file documented as of this encounter Progress Notes Alana Mcclellan, SUPERVISOR WINDING DEPARTMENT - 11/02/2016 4:59 PM EST [facility] FOLLOW UP CONTINUING CARE MANAGEMENT SOCIAL WORK ? CLAIM # [id number] DOI: ??04/28/15 INSURANCE COMAPANY: [employer] CONTACT:Acid Dipperjosé Cao NCM: Shayla Balderas Phone: Field Mechanic: Bere Farrell CBT therapist: Tiffanie Nielson S/O Nara Huerta was seen in [facility] with Dr Gutierres. Please see provider note for ov details. Pt was seen today for a session of Eidetic Memory Reprocessing. The process was explained in detail and pt verified that she understood the process and that she is in complete control of the pace and content of the process. Pt was able to practice detaching herself from the traumatic event and was able to play the movie from a detached place at least half the way through. She did find herself loosing the perspective of the movie. She was able to make to additional attempts. She did very well and understands that this will require additional practice. We ageed to meet again in either one or two weeks. She will review herschedule to confirm that she is available to return next week. A/Pt tolerated the process well. She was able to activity engage in processing her experience. She does appear to have the ability to be successful with this. P/ Patient will return in one week. documented in this encounter Plan of Treatment Not on filedocumented as of this encounter Visit Diagnoses Not on filedocumented in this encounter Care Teams Tank Charger Relationship Specialty Start Date End Date Elaine Palencia MD PCP - General 10/12/11 [address]anna [address] [place] [address] documented as of this encounter
--- OUTSIDE RECORDS SUMMARY | 2022-02-24 00:14 | XMS_ITS | Encounter Summary ---
:1965 Author Organization [facility] [place] [address] Care Team Providers Name Role Phone Elaine Palencia MD Primary Care Provider Encounter Details Date Type Department Care Team Description 06/28/2017 Telephone Care Management Alana Mcclellan, [place] [address] Social History Tobacco Use Types Packs/Day Years Used Date Never Smoker Smokeless Tobacco: Never Used Alcohol Use Standard Drinks/Week Comments No 0 (1 standard drink = 0.6 oz pure alcoho l) Sex Assigned at Date Recorded Not on file documented as of this encounter Progress Notes Alana Mcclellan, LUIS ANTONIO - 06/28/2017 5:23 PM EDT [facility] FOLLOW UP CONTINUING CARE MANAGEMENT SOCIAL WORK ? CLAIM # [id number] DOI: ??04/28/15 INSURANCE COMAPANY: [employer] CONTACT:Lalo Cao NCM: Shayla Balderas Phone: Welder Gas Tungsten Arc: Bere Farrell CBT therapist: Tiffanie Nielson CALL FROM / TO: Nara Huerta REASON FOR CALL: [facility] called pt as requested. Pt wonders if Dr Gutierres could do an IR at her July 05 ov. This chantale be reviewed with Dr Gutierres. Pt continues to have all treatment options for pain deniedby both wc and private insurance. ASSESSMENT:Pt is very distressed by her situation PLAN:Pt will attend f/u Nove 2 06/28/17 1700 Workers' Compensation Type of Visit Follow-up Is your claim open and active? No Work Status OOW Treating Provider Managing WC Yes Managing Provider Name Dr Gutierres Receiving Wage Replacement No Are there bills not covered by Workers' Compensation? Yes Is there an attorney general for Workers' Compensation Yes Wel[employer] Tung[employer] Arc Name Bere Farrell Was there an BIN? Yes Previous WC claims through the DOL? No MMI? No 06/28/17 1700 Workers' Compensation Type of Visit Follow-up Is your claim open and active? No Work Status OOW Treating Provider Managing WC Yes Managing Provider Name Dr Gutierres Receiving Wage Replacement No Are there bills not covered by Workers' Compensation? Yes Is there an attorney general for Workers' Compensation Yes [employer] Arc Name Bere Farrell Was there an BIN? Yes Previous WC claims through the DOL? No MMI? No documented in this encounter Plan of Treatment Not on filedocumented as of this encounter Visit Diagnoses Not on filedocumented in this encounter Care Teams Mainspring Former Arbor End Relationship Specialty Start Date End Date Elaine Palencia MD PCP - General 10/12/11 [address]anna [address] [place] [address] documented as of this encounter
--- OUTSIDE RECORDS SUMMARY | 2022-02-24 00:14 | XMS_ITS | Encounter Summary ---
:1965 Author Organization [facility] [place] [address] Care Team Providers Name Role Phone Elaine Palencia MD Primary Care Provider Encounter Details Date Type Department Care Team Description 10/30/2016 Hospital Encounter XRay at [facility] Darius Sorto Work related injury [address] [place] [address] Dr Red MD [facility] [address] [place] [phone] [place] [address] Social History Tobacco Use Types Packs/Day Years Used Date Never Smoker Smokeless Tobacco: Never Used Alcohol Use Standard Drinks/Week Comments No 0 (1 standard drink = 0.6 oz pure alcoho l) Sex Assigned at Date Recorded Not on file documented as of this encounter Medications at Time of Discharge Medication Sig Dispensed Refills Start Date End Date dextroamphetamine-ampheta Take 20 mg by mouth 0 0 10/25/2016 mine (ADDERALL XR) 10 mg every morning. Capsule, Sust. Release 24 hr amitriptyline (ELAVIL) 10 Take 1 tablet by 30 tablet 3 11/01 mg Tablet mouth nightly. amlodipine (NORVASC) 5 mg Take 5 mg by mouth 0 tablet daily. ibuprofen (ADVIL;MOTRIN) Take 400 mg by 0 011 04/05/2017 200 mg Tablet mouth. triamcinolone (KENALOG) Reported on 0 06/15/2016 03/12/2017 0.1 % Cream 03/12/2017 Ketamine (Bulk) 100 % Apply topically 4 240 g 5 016 12/13/2016 Powd 10 %, Baclofen times daily. (Bulk) 100 % Powd 2 %, diclofenac sod, micro (bulk) 100 % Powd 3 %, Gabapentin (Bulk) 100 % Powd 6 %, Lidocaine HCl (Bulk) 100 % Powd 5 % citalopram (CELEXA) 40 mg take 1 tablet by 0 01/0106/12/2017 Tablet mouth once daily HYDROcodone-acetaminophen Reported on 0 6 04/05/2017 (VICODIN) 5-300 mg Tablet 03/12/2017 LORazepam (ATIVAN) 0.5 mg Take 0.5 mg by mouth 0 12/16/2015 10/24/2017 Tablet daily. documented as of this encounter Plan of Treatment Not on filedocumented as of this encounter Procedures Procedure Name Priority Date/Time Associated Diagnosis Comme nts XR TIBIA FIBULA Routine 10/30/2016 1:36 PM Work related injury Results for this BILAT EST procedure are i n the results section. documented in this encounter Results XR Tibia Fibula Bilat (Generic) (10/30/2016 1:36 PM EST) Anatomical Region Laterality Modality Leg Bilateral Digital Radiography Specimen (Source) Anatomical Location Collection Method / Collectio n Time Received Time / Laterality Volume Impressions 10/30/2016 4:15 PM EST No acute injury. Probable mild osteoarthropathy changes i n the bilateral knee medial compartments. I have personally reviewed the image(s) and the residents interpretation and agree with the findings, Zaria knutson 10/30/2016 4:15 PM Narrative 10/30/2016 4:15 PM EST EXAMINATION: XR TIBIA FIBULA BILAT (GENERIC) CLINICAL HISTORY: Gerardo knee pain - wc doi 04/28/15 TECHNIQUE: AP and lateral views of the b ilateral tibia and fibula (4 views) COMPARISON: MR right lower leg September 042016 FINDINGS: Right tibia/fibula: No acute fracture or evidence of healed fracture. Normal osseous mineralization. No osseous lesio n. Probable mild loss of joint space in the medial compartment, suboptimally yehuda luated. Left tibia/fibula: No acute fracture or evidence of healed fracture. Normal osseous mineralization. No osseous lesio n. Probable mild loss of joint space in the medial compartment, suboptimally yehuda luated. Procedure Note Zaria Spence MD - 10/30/2016Formatt ing of this note might be different from the original. EXAMINATION: XR TIBIA FIBULA BILAT (GENE EVE) CLINICAL HISTORY: Gerardo knee pain - wc doi 04/28/15 TECHNIQUE: AP and lateral views of the b ilateral tibia and fibula (4 views) COMPARISON: MR right lower leg September 042016 FINDINGS: Right tibia/fibula: No acute fracture or evidence of healed fracture. Normal osseous mineralization. No osseous lesio n. Probable mild loss of joint space in the medial compartment, suboptimally yehuda luated. Left tibia/fibula: No acute fracture or evidence of healed fracture. Normal osseous mineralization. No osseous lesio n. Probable mild loss of joint space in the medial compartment, suboptimally yehuda luated. IMPRESSION No acute injury. Probable mild osteoarthropathy changes i n the bilateral knee medial compartments. I have personally reviewed the image(s) and the residents interpretation and agree with the findings, ZariaOmaira knutson 10/30/2016 4:15 PM Darius Sorto MD IMG DX ORDERABLES documented in this encounter Visit Diagnoses Diagnosis Work related injury Injury, other and unspecified, unspecifi ed site documented in this encounter Care Teams Forest Fire Fighters Dispatcher Relationship Specialty Start Date End Date Elaine Palencia MD PCP - General 10/12/11 [address]anna [address] [place] [address] documented as of this encounter
--- OUTSIDE RECORDS SUMMARY | 2022-02-24 00:14 | XMS_ITS | Encounter Summary ---
:1965 Author Organization [facility] [place] [address] Care Team Providers Name Role Phone Elaine Palencia MD Primary Care Provider Encounter Details Date Type Department Care Team Description 06/07/2017 Telephone Care Management Alana Mcclellan, [place] [address] Social History Tobacco Use Types Packs/Day Years Used Date Never Smoker Smokeless Tobacco: Never Used Alcohol Use Standard Drinks/Week Comments No 0 (1 standard drink = 0.6 oz pure alcoho l) Sex Assigned at Date Recorded Not on file documented as of this encounter Miscellaneous Notes Telephone Encounter - Alana Mcclellan, MANAGER OUTREACH - 06/07/2017 4:38 PM EDT [facility] FOLLOW UP CONTINUING CARE MANAGEMENT SOCIAL WORK ? CLAIM # [id number] DOI: ??04/28/15 INSURANCE COMAPANY: [employer] CONTACT:Lalo Cao NCM: Shayla Balderas Phone: Chemical Analyst: Bere Farrell CBT therapist: Tiffanie Nielson Pt called to request appointment with Dr Gutierres for PIR. She is now taking Gabapentin and Natrexone and Amyitraline at bedtime and has recently added Effexorper new psychiatrist. Pt feels there is no other option to improve her situation and is ready for MMI and IR. [facility] reviewed med list with Dr Gutierres who suggested that our clinical Shoe Cutter review. She placed referral. [facility] will request LSA be set for PIR documented in this encounter Plan of Treatment Not on filedocumented as of this encounter Visit Diagnoses Not on filedocumented in this encounter Care Teams Hairspring Studder Relationship Specialty Start Date End Date Elaine Palencia MD PCP - General 10/12/11 Johanna [address] [place] [address] documented as of this encounter
--- OUTSIDE RECORDS SUMMARY | 2022-02-24 00:14 | XMS_ITS | Encounter Summary ---
:1965 Author Organization [facility] Address [address] [place] [address] Care Team Providers Name Role Phone Elaine Palencia MD Primary Care Provider Encounter Details Date Type Department Care Team Description 11/09/2016 Office Visit Occupational Medicine Rani Gutierres, Michele onic pain of lower extremity, bilateral; at [address] Work related injury; [address] [place] [address] [phone] OCCUPATIONAL MEDICINE [place], [place] [address] Social History Tobacco Use Types Packs/Day Years Used Date Never Smoker Smokeless Tobacco: Never Used Alcohol Use Standard Drinks/Week Comments No 0 (1 standard drink = 0.6 oz pure alcoho l) Sex Assigned at Date Recorded Not on file documented as of this encounter Progress Notes Rani Gutierres MD - 11/09/2016 2:30 PM EST [facility] OCCUPATIONAL AND ENVIRONMENTAL MEDICINE FOLLOW UP VISIT Date of Injury: April 28, 2015. Date of Intake: January 18, 2016. Employer: [employer]. Work Status: Out of work. 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 She is here for second eidetic memory reprocessing session. Symptoms are unchanged today. She has BIN appointment with Dr. [place] next week. O: She is alert and pleasant, in no acute distress but move uncomfortably. She demonstrates no exaggerated pain behaviors. Speech is clear and coherent. Affect is sad. First phase of EMR was successfully completed after several more trials. She was unable to bring up images for the second phase of the EMR treatment. We tried alternate approach with cards versus the movie but this did not stimulate eye movement. Patient was emotionally exhausted at that point so decision was made to end the session and restart at next week's session. Completing the first phase was significant progress as she was unable to maintain the observational perspective throughout the entire first session. Patient identified cognitive lapses as a challenge in doing this therapy. We reviewed medications and she is on a significant number of centrally acting medications. 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 First phase of eidetic memory reprocessing for trauma recovery was successful completed to re-establish the observational ego. Unable to progress to phase two during this visit secondary to emotional, physical, and cognitive fatigue. P: 1. Follow up in one week for third EMR session to start Phase 2 of treatment. We anticipate that upon completion of EMR treatment her brain will stop running the trauma movie and that her injury-related mood symptoms, and possibly pain, will be less. Although this technique focuses exclusively on her work injury fall and trauma related to the fall, given her complex trauma history, if we are not able to progress past the first phase or otherwise plateau, we will refer her to Dr. Dl Gupta at [facility] to complete the therapy. 2. Continue counseling per discussion with treating therapist, which will exclude running of the trauma movie. Therapist notified by phone with EMR treatment update from session today. 3. I left a message for her PCP regarding potential cognitive side effects of current medication regimen and plan for streamlining as well as treatment update for care coordination. 4. We will schedule a follow up visit with Dr. Gamaliel Kim at [facility] for next steps for chronic neuropathic pain treatment and consideration of SCS trial. 5. Continue the pain cream, given that she is getting some pain relief from this. 6. Remainder of treatment plan per previous notes. She is not at MMI. WC form completed out of work given intractable pain and inability to ambulate. 7. Will await Dr. [place]'s BIN report. This note sent to be forwarded to [facility] Shayla Disla. The entirety of this 60 minute visit was spent providing eidetic memory reprocessing treatment per protocol for trauma recovery. documented in this encounter Plan of Treatment Not on filedocumented as of this encounter Visit Diagnoses Diagnosis Chronic pain of lower extremity, bilater al Work related injury Injury, other and unspecified, unspecifi ed site Trauma Injury, other and unspecified, unspecifi ed site documented in this encounter Care Teams Wrestling Coach Relationship Specialty Start Date End Date Elaine Palencia MD PCP - General 10/12/11 [address]anna [address] [place] [address] documented as of this encounter
--- OUTSIDE RECORDS SUMMARY | 2022-02-24 00:14 | XMS_ITS | Encounter Summary ---
:1965 [place] [address] Care Team Providers Name Role Phone Elaine Palencia MD Primary Care Provider Reason for Visit Reason Comments Advice Only Consultation (Routine) - Closed Specialty Diagnoses / Procedures Referred By Contact Refer red To Contact Diagnoses Work related injury Rani Gutierres MD [facility] Clin Pharmacology [facility] [place] [address] [place] [address] Referral ID Status Reason Start Date Expiration Date Visits V isits Requested Authorized [id number] Closed Consult, 06/07/2017 06/07/2018 1 1 Test & Treat Encounter Details Date Type Department Care Team Description 07/03/2017 Office Visit Hematology and Oncology at Dawson Tate MD Polypharmacy [facility] [address] [address] [place] [address] [phone] (Wo rk) Social History Tobacco Use Types Packs/Day Years Used Date Never Smoker Smokeless Tobacco: Never Used Alcohol Use Standard Drinks/Week Comments No 0 (1 standard drink = 0.6 oz pure alcoho l) Sex Assigned at Date Recorded Not on file documented as of this encounter Last Filed Vital Signs Vital Sign Reading Time Taken Comments Blood Pressure 121/73 07/03/2017 3:31 PM EDT Pulse 84 07/03/2017 3:31 PM EDT Temperature 36.8 ??C (98.2 ??F) 07/03/2017 3:31 PM EDT Respiratory Rate 17 07/03/2017 3:31 PM EDT Oxygen Saturation 100% 07/03/2017 3:31 PM EDT Inhaled Oxygen Concentration - - Weight 51.9 kg (114 lb 6.4 oz) 07/03/2017 3:31 PM EDT Height 157.5 cm (5' 2) 07/03/2017 3:31 PM EDT Body Mass Index 20.92 07/03/2017 3:31 PM EDT documented in this encounter Progress Notes Dawson Tate MD - 07/03/2017 3:30 PM EDT Clinical Pharmacology/Toxicology Ambulatory Consultation: Attending: [facility] Requested by Dr. Rani Gutierres MD. Date: July 03 2017 Reason for Consult: Evaluate patient for multiple medications drug -drug interactions and polypharmacy. The focus of this consultation was on the patients medication issues rather than her comorbidities. Summary History of Presenting Complaints: Mrs. 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 elbow and chest Since then and because of pain and lack of improvement she has a chronic pain syndrome and developed anxiety/depression and appears significantly disabled and is not able to work. She is currently taking multiple medications and Dr Gutierres has suggested she be seen to streamline her medication list as she does not feel that all of them are beneficial and she is having a number of side effects. Her major concerns at this time are (i) pain in her arms and legs (particularly Rt. Leg) with a diagnosis of chronic regional pain syndrome (CRPS) in her upper limbs (ii) anxiety/depression (iii) insomnia (iv) periods of drowsiness/confusion and lack of ability to focus (v) able to only do minimal housework at home (vii) unable to work and her is the sole family income earner currently (viii)her workers compensation claim was unsuccessful and she is currently taking legal action to appeal this (ix) Mrs. Montes De Oca would prefer to be on fewer medications as her medication list is extensive and she is having adverse drug side effects and additionally the cost of her medications is further burdening her financial situation (or as recently termed ??? financial toxicity?? ). She is under the care of her psychiatrist, PCP and chronic pain clinic providers. 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 , Cannot focus or concentrate Walks with a cane and needs a wheelchair for long walks Skin: Paronychia and seborrheic keratoses Musculoskeletal: CRPS upper limbs and lower leg pains Psych: She has anxiety/depression and a chronic regional pain syndrome with functional debility Currently sleep is poor but generally helped significantly by the amitryptiline taken at night Allergies/Adverse drug reactions; Allergies: No known allergies Current Herbal/Nutraceuticals Drugs she been taking -but not currently Hydrocodone-APAP 5 mg/325 mg (Vicodin) NSAIDs Lorazepam Pregabalin Topical mixed analgesic cream- unclear of all components -she did not get this Rx filled Trialed medical [employer] products (submucosal) -does not like the taste/smell Not keen at this time to consider methadone/ketamine as a neuropathic pain analgesic Current Drug Therapy Amlodipine PO 5 mg daily- migraine prophylaxis Amitriptyline PO 25 mg at night Amphetamine/Dextroamphetamine (Adderall XL) 10 mg PO in the AM Bupropion SR PO 150 mg twice a day Gabapentin 100 mg PO BID - has increased to 200 mg bid but sedation is a problem Naltrexone 4.5 mg PO /daily at night (analgesia) Venlafaxine XL 150 mg PO /daily (was taking 300 mg daily) Not taking other herbals/nutraceuticals or OTC medications Past Surgical/Medical History: Prior history of migraine Chronic regional pain syndrome Anxiety/depression Problem list:- Anxiety Fatigue Chronic paronychia Chronic bilateral lower extremity pain Chronic regional pain syndrome Type 1 of both upper extremities Depression Seborrheic keratosis Tinea unguium Work related injury Nil RhF/TB/Jaundice Family History a/w; Social History: Fall at work with leg and neck/back injury leading to CPRS and her being unable to work 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 No recreational drug use. Full Physical Exam: Deferred Pleasant lady who seemed comfortable sitting in the chair. Self assessed pain score 6-7 currently Wt 51.9 kg KS-70-80: BMI- 24.4 Temp 36.8 oC. Pulse 84/min: BP 121/73 mm Hg; R/Rate 17 /min and Sp02- 100% Psych- not suicidal but anhedonic and depressed with her current clinical state Relevant Lab Data from the Medical Record to be interpreted None today Diagnosis/Impression: 1. By history a number of medical conditions as listed in her problem list Polypharmacy -multiple drugs for anxiety/depression/insomnia/ chronic neuropathic pain Recommendation/Drug Management Plan 1. This is a difficult case to assess and make major recommendation about her polypharmacy. t I am concerned that with the number of serotonin modulating medications she is on that some of her cognitive symptoms could be related to the early symptoms of a serotonin excess syndrome and sedation caused by her other psychoactive medications.Therefore I recommend the following (i) It is helpful that during the past several weeks she tapered her lorazepam (0.5 mg PO/day) and discontinued it without apparent increase in her anxiety (ii) Taper and discontinue her gabapentin -currently taking 200 mg/day but she does not think this is helping improving her pain and is contributing to her drowsiness (iii) If the discontinuation of her gabapentin is successful I recommended to her to discontinue heramphetamine/dextroamphetamine (Adderall XL) (iv) Monitoring and careful titation of all serotonergic modulating medications (amitryptiline/venlafaxine/bupropion) should be undertaken 35 minutes of this 60 minute visit was spent discussing and counselling the patient about her many medications their therapeutic and adverse effect profiles and the positives and negatives of other neuropathic pain medications being considered for her. In addition she was counselled about the medications she could attempt to discontinue as outline above. documented in this encounter Plan of Treatment Not on filedocumented as of this encounter Visit Diagnoses Diagnosis Polypharmacy Issue of repeat prescriptions documented in this encounter Care Teams Medical Receptionist Relationship Specialty Start Date End Date Elaine Palencia MD PCP - General 10/12/11 [address] [place] [address] documented as of this encounter
--- OUTSIDE RECORDS SUMMARY | 2022-02-24 00:14 | XMS_ITS | Encounter Summary ---
:1965 Author Organization [facility] Address [address] [place] [address] Care Team Providers Name Role Phone Elaine Palencia MD Primary Care Provider Reason for Visit Reason Comments Follow-up Encounter Details Date Type Department Care Team Description 03/22/2017 Office Visit Occupational Medicine Rani Gutierres Com plex regional pain syndrome type 1 of both upper extremities; at [address] Injury resulting from fall from height; [address] [facility] Muscle herniation; [place] [address] [place] [address] Work related injury [phone] OCCUPATIONAL MEDICINE [place] [id number] Social History Tobacco Use Types Packs/Day Years Used Date Never Smoker Smokeless Tobacco: Never Used Alcohol Use Standard Drinks/Week Comments No 0 (1 standard drink = 0.6 oz pure alcoho l) Sex Assigned at Date Recorded Not on file documented as of this encounter Last Filed Vital Signs Vital Sign Reading Time Taken Comments Blood Pressure 110/83 03/22/2017 9:19 AM EDT Pulse - - Temperature - - Respiratory Rate - - Oxygen Saturation - - Inhaled Oxygen Concentration - - Weight - - Height - - Body Mass Index - - documented in this encounter Progress Notes Rani Gutierres MD - 03/22/2017 9:00 AM EDT [facility] OCCUPATIONAL AND ENVIRONMENTAL MEDICINE FOLLOW UP VISIT Date of Injury: April 28, 2015. Date of Intake: January 18, 2016. Employer: [employer]. Work Status: Out of work. 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 Pain Medicine diagnosis is CRPS. Since last visit, she has seen Dr. Negro Potter in Pain Medicine with medication and treatment recommendat ions. She has not been able to get the medication prescriptions covered by either workers' compensation or her private insurance. They have been sent to [facility]. She has a follow-up scheduled with Dr. Ceci Tavares in neurology on May 01. She previously has been approved for Social Security disability but that was delayed and she is resubmitting the paperwork. She is continuing to see her counselor and feels that her injury-related trauma symptoms are improving slightly. She did have an episode of significant left knee swelling and discoloration with pain at the beginning of March. This has since resolved and she was evaluated in pain medicine and assessed to be related to theCRPS. She has discontinued opiates without worsening of symptoms. O: Vitals: 03/22/17 0919 BP: 110/83 She is alert and pleasant in no acute distress but move uncomfortably. Gait is antalgic and slow. She uses a cane to ambulate. She demonstrates no exaggerated pain behaviors. She sits on the exam tablewith legs extended. There is visible swelling of the right anterior betancourt. Speech is clear and coherent. Affect is improved since last visit. Left knee swelling and discoloration has resolved. Photo from episode of knee swelling. 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 She has medication trials available but this is stalled by coverage issues. First phase of eidetic memory reprocessing for trauma recovery was successful completed to re-establish the observational ego. We were unable to progress to phase two of EMR to difficulty concentrating on multiple psychotropic medications. She is making progress with her local counselor in terms of trauma recovery. P: 1. Follow up with Dr. Negro Potter in Pain Medicine as planned and continue Pain Medicine medication and treatment recommendations. We will contact her pharmacy to see if they can provide a shorter and less expensive trial of the oral ketamine to test before her next Pain Medicine visit. 2. Hold on EMR for now. Continue current counseling with treating therapist for chronic pain management and post traumatic symptoms. Given her complex trauma history, if progress stalls with trauma recovery, we will refer her to Dr. Dl Gupta at [facility] to complete the therapy. 3. I will confirm with Dr. Negro Potter to find out if she still needs to follow up with Dr. Chaitanya colbert. 4. She is not at [facility]. WC form completed with very part-time sedentary work capacity as a trial to see if she can tolerate this. She will need breaks as needed. 5. Please see my past note regarding the inaccuracies in BIN report. This is a work-related injury that has been well documented by her treating providers with objective findings on exam and imaging and EDX studies and treatment options are available that could improve her function. The entirety of this 25 minute visit was spent discussing diagnoses, treatment options, treatment plan, medications, and work capacity using a shared decision making approach. documented in this encounter Plan of Treatment Not on filedocumented as of this encounter Visit Diagnoses Diagnosis Complex regional pain syndrome type 1 of both upper extremities Injury resulting from fall from height Injury, other and unspecified, unspecifi ed site Muscle herniation Other disorder of muscle, ligament, and fascia Work related injury Injury, other and unspecified, unspecifi ed site documented in this encounter Care Teams Tearer Press Clipping Relationship Specialty Start Date End Date Elaine Palencia MD PCP - General 10/12/11 [address] [place] [address] documented as of this encounter
--- OUTSIDE RECORDS SUMMARY | 2022-02-24 00:14 | XMS_ITS | Encounter Summary ---
:1965 [place] [address] Care Team Providers Name Role Phone Elaine Palencia MD Primary Care Provider Reason for Visit Reason Onset Date Comments Medication Refill 12/13/2016 Encounter Details Date Type Department Care Team Description 12/13/2016 [facility] [address] [place] [address] [place] [address] [phone] (Wo rk) Social History Tobacco Use Types [...] on filedocumented in this encounter Care Teams Geriatric Aide Relationship Specialty Start Date End Date Elaine Palencia MD PCP - General 10/12/11 [address] [place], [place] [id number] documented as of this encounter
--- OUTSIDE RECORDS SUMMARY | 2022-02-24 00:14 | XMS_ITS | Encounter Summary ---
:1965 Author Organization [facility] [place] [address] Care Team Providers Name Role Phone Elaine Palencia MD Primary Care Provider Encounter Details Date Type Department Care Team Description 08/14/2017 Telephone Care Management Alana Mcclellan, HOT [employer]TLE [place] [address] Social History Tobacco Use Types Packs/Day Years Used Date Never Smoker Smokeless Tobacco: Never Used Alcohol Use Standard Drinks/Week Comments No 0 (1 standard drink = 0.6 oz pure alcoho l) Sex Assigned at Date Recorded Not on file documented as of this encounter Miscellaneous Notes Telephone Encounter - Alana Mcclellan MSW - 08/14/2017 3:49 PM EST [facility] FOLLOW UP CONTINUING CARE MANAGEMENT SOCIAL WORK ? CLAIM # [id number] DOI: ??04/28/15 INSURANCE COMAPANY: [employer] CONTACT:Lalo Cao Process Engineering Technician: Bere Farrell CBT therapist: Tiffanie Nielson Pt called to check to see if Dr Gutierres's IR has been sent to the aduster. [facility] noted that the ratings are listed in the pt chart, the question is has it been sent to the envelope folding machine adjuster. [facility] has request in to Adia Huerta. documented in this encounter Plan of Treatment Not on filedocumented as of this encounter Visit Diagnoses Not on filedocumented in this encounter Care Teams Manager Career Relationship Specialty Start Date End Date Elaine Palencia MD PCP - General 10/12/[address] [place] [address] documented as of this encounter
--- OUTSIDE RECORDS SUMMARY | 2022-02-24 00:14 | XMS_ITS | Encounter Summary ---
:1965 Author Organization [facility] [place] [address] Care Team Providers Name Role Phone Elaine Palencia MD Primary Care Provider Reason for Referral Consultation (Routine) - Specialty Diagnoses / Procedures Referred By Contact Refer red To Contact Orthopaedics Diagnoses Work related injury Rani Gutierres MD Moschetti, Wayne E, MD [facility] DR DEREJE FERNANDEZ E ORTHOPAEDIC SURGERY [place], [place] [id number] [place] [address] Fax: Referral ID Status Reason Start Date Expiration Date Visits V isits Requested Authorized [id number] Consult, 10/05/2016 10/05/2017 1 1 Test & Treat Encounter Details Date Type Department Care Team Description 10/05/2016 Orders Only Occupational Medicine at Rani Gutierres MD Work related injury [facility] [place] [address] OCCUPATIONAL [phone] MEDICINE [place] [id number] Social History Tobacco Use Types Packs/Day Years [...] Routine Work related injury O rdered: Orthopaedics 10/05/2016 documented as of this encounter Visit Diagnoses Diagnosis Work related injury Injury, other and unspecified, unspecifi ed site documented in this encounter Care Teams Medical Billing Specialist Relationship Specialty Start Date End Date Elaine Palencia MD PCP - General 10/12/11 [address] [place] [address] documented as of this encounter
--- OUTSIDE RECORDS SUMMARY | 2022-02-24 00:14 | XMS_ITS | Encounter Summary ---
:1965 Author Organization [facility] Address [address] [place] [address] Care Team Providers Name Role Phone Elaine Palencia MD Primary Care Provider Reason for Visit Reason Comments Pain Management Encounter Details Date Type Department Care Team Description 03/26/2018 Office Visit Pain Management at [facility] Potter Comp jamshid regional pain Soy NAIR syndrome type 1 of [facility] low er extremity, Drive DR unspecified laterality [place], [place] [facility] [address] [place] [address] [phone] Social History Tobacco Use Types Packs/Day Years Used Date Never Smoker Smokeless Tobacco: Never Used Alcohol Use Standard Drinks/Week Comments No 0 (1 standard drink = 0.6 oz pure alcoho l) Sex Assigned at Date Recorded Not on file documented as of this encounter Last Filed Vital Signs Vital Sign Reading Time Taken Comments Blood Pressure 124/82 03/26/2018 2:05 PM EDT Pulse 95 03/26/2018 2:05 PM EDT Temperature - - Respiratory Rate - - Oxygen Saturation 100% 03/26/2018 2:05 PM EDT Inhaled Oxygen Concentration - - Weight 50.8 kg (112 lb) 03/26/2018 2:05 PM EDT Height 157.5 cm (5' 2) 03/26/2018 2:05 PM EDT Body Mass Index 20.49 03/26/2018 2:05 PM EDT documented in this encounter Progress Notes Heydi Potter MD - 03/26/2018 2:00 PM EDT Images from the original note were not included. PAIN CLINIC REEVALUATION PATIENT NAME: Nara Huerta : 1965 DATE OF SERVICE: 03/26/2018 Chief Complaint: Bilateral leg and foot pain CRWork related injury: 04/28/2015 Date of Initial Evaluation in the Pain Clinic: 02/26/17 Date of most recent evaluation in the Pain Clinic: 12/25/17 W/C case closed 02/24/18. HPI: Subjective Nara Huerta is a 52 [...] about [address] Kim at [facility]. Dr. Kim requested further evaluation. I do not have the notes from [facility] available to me today. The patient has hadsymptoms since a work related injury 04/28/15. 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 The patient stepped on a chair and [...] by Dr. Gutierres in Occ Med at [facility]. INTERVAL HX: 03/12/17 At the last visit (02/26/17), the following plan was delineated: 1. UDS-last hydrocodone 6/25 am 2. Compounded ointment with ketamine 5%, diclofenac 3%, gabapentin 6%, lidocaine 5%, apply to painful area up to four times per day as needed. (ordered through [facility]). Pt did not receive this; [...] four times per day as needed. ([facility]) The patient did not get [...] times per day as needed. (ordered through [facility]). Will change to ([facility]). -she is taking low dose naltrexone [...] her insurance company will not cover it. ([facility]) -the patient is very [...] her insurance company will not cover it. ([facility]) 3. She finds the amitriptyline helpful for sleep. 4. She is using low dose naltrexone 4.5 mg at bedtime, but is finding it very expensive. Her insurance will not cover it. ([facility]). 5. The patient has a deposition [...] sees the psychiatrist intermittently for medication management. 03/26/2018: The patient is accompanied by their today. -the patient's W/C case is closed. The patient has not received notification of what funds are available to her. LOCATION: Bilateral legs and feet. PAIN DESCRIPTION: [...] 7 7 7 6-7 6-7 6-7 5-6 PAIN LEVEL 03/26/18 AT REST 6 WORST over past week 7 BEST over past week 6 AVERAGE over past week 6 CRPS symptoms: 02/26/2017 03/12/2017 05/10/2017 08/21/17 03/26/2018 SENSORY Right greater than left Right greater [...] HELPFUL? NOT TRIALED PT extensive no TENS x Scrambler tx 5 treatment no Mirror therapy [...] a benzodiazepine? yes Current use of other ELECTRONICS TECHNICIAN depressant? No Current diagnosis of Obstructive Seep [...] Prescription Drug Monitoring Program data reviewed? Yes 03/26/2018 Inconsistencies? No Urine drug screen ordered? No [...] allergies indicates no known allergies. MEDICATIONS: Medications 03/26/18 0643 Medication Sig Taking? gabapentin (NEURONTIN) 100 mg Capsule Take 2 capsules by mouth nightly. Indications: Neuropathic Pain Yes naltrexone HCl (NALTREXONE ORAL) Take 4.5 mg by mouth nightly. Yes buPROPion (WELLBUTRIN SR OR ZYBAN) 150 mg Tablet Sustained Release 12 hr take 1 tablet by mouth every morning Yes venlafaxine (EFFEXOR-XR) 150 mg Capsule, Sust. Release 24 hr take 2 capsules by mouth every morning Yes dextroamphetamine-amphetamine (ADDERALL XR) 10 mg Capsule, [...] Neurological: Negative for syncope. PHYSICAL EXAM: BP 124/82 Pulse 95 Ht 157.5 cm (5' 2) Wt 50.8 kg (112 lb) SpO2 100% BMI 20.49 kg/m2 Physical Exam Constitutional: She is oriented to person, place, and time. She appears well- developed and well-nourished. Tired appearing Neurological: She is alert and oriented to person, place, and time. Psychiatric: Her behavior is normal. Judgment and thought content normal. Flat affect CRPS SIGNS: 02/26/2017 03/12/17 05/10/2017 08/21/17 03/26/18 SENSORY Allodynia Dynamic 9-rt, 0 left 9-rt, 0 left 8-rt, 0 left 8-rt, 0 left 8-rt, 6 left Allodynia: Static 9-rt, 0 left 9-rt, 0 left 9-rt, 0 left 9-rt, 0 left 8-rt, 6 left Joint tenderness to movemen Large joint [...] Left-72.2 present Rt-79.1 Left-75.2 present Rt-82 Left-78 absent Rt-80.1 Left-80.6 SUDOMOTOR/EDEMA Hyperhidrosis present right present right present right absent absent Swelling present-mild lateral sub maleolar Right pretibial, [...] IV ketamine and oral low dose naltrexone. The patient's W/C case is now closed. She is not sure what funds she will receive to help with medical costs. We have discussed that opioids are not [...] defects, panic attacks), nausea/vomiting, somnolence, cardiovascular stimulation, ELECTRONICS TECHNICIAN neurotoxicity. We discussed that medication will be given to try to prevent or mitigate side effects. The patient will need to have a telephone directory distributor driver and have someone with them at home after the infusion. They will also need to have cardiac and psychologic evaluation as well as labwork prior to proceeding with the infusion. Written information was provided to the patient for review. We discussed that the ketamine infusion program at [facility] is now on hold. I have been referring patients to [facility]. When the ketamine infusion program was ongoing at [facility], 9 patients with CRPS were reviewed and had over 70% improvement in pain, function and mood. The patient has difficulties with considering a trip to [place] for ketamine infusion. She has an elderly [...] has started mirror therapy and is veryencouraged. It is concerning that the patient had [...] result of their injury that occurred at [facility] on 04/28/15. We discussed that the [...] 5. Follow up with Dr. Potter in 12 weeks (45 minutes) 6. Recommend low dose outpatient ketamine infusion 7. Unfortunately, at this time, treatment options are somewhat limited,it is also not clear what hersettlement will provide in terms of funding for ongoing care of her pain. 8. Continue OT/PT using graded motor imagery and mirror therapy. 9. Follow up with Dr. Gutierres as needed. 10. TENS Thank you for the opportunity to participate in Nara Huerta's care. Please feel free to contactme with any questions. Sincerely, Heydi Potter MD [employer] Estimator of Anesthesiology [facility] [address] [address] / [facility] documented in this encounter Plan of Treatment Not on filedocumented as of this encounter Visit Diagnoses Diagnosis Complex regional pain syndrome type 1 of lower extremity, unspecified laterality documented in this encounter Care Teams Shot Dropper Relationship Specialty Start Date End Date Elaine Palencia MD PCP - General 10/12/11 [address] PAZ [address] [place] [id number] documented as of this encounter
--- OUTSIDE RECORDS SUMMARY | 2022-02-24 00:14 | XMS_ITS | Encounter Summary ---
:1965 Author Organization [facility] [place] [address] Care Team Providers Name Role Phone Elaine Palencia MD Primary Care Provider Reason for Visit Consultation (Routine) - Closed Specialty Diagnoses / Procedures Referred By Contact Refer red To Contact Neurology Diagnoses Work related injury Rani Gutierres MD Lawson, Victoria H, MD [facility] [address] [place] [address] [place] [address] Fax: Referral ID Status Reason Start Date Expiration Date Visits V isits Requested Authorized [id number] Closed Consult, 02/22/2017 02/22/2018 1 1 Test & Treat Encounter Details Date Type Department Care Team Description 05/01/2017 Procedure visit Neurology at [facility] Ceci Benson Complex regional pain syndro me type 1 of both lower extremities; [facility] MD Olga Mononeuritis lower limb, unspecified [facility] [id number] NEUROLOGY DEPT [phone] [place], [place] [address] Social History Tobacco Use Types Packs/Day Years Used Date Never Smoker Smokeless Tobacco: Never Used Alcohol Use Standard Drinks/Week Comments No 0 (1 standard drink = 0.6 oz pure alcoho l) Sex Assigned at Date Recorded Not on file documented as of this encounter Last Filed Vital Signs Vital Sign Reading Time Taken Comments Blood Pressure 107/73 05/01/2017 8:58 AM EDT Pulse 94 05/01/2017 8:58 AM EDT Temperature - - Respiratory Rate - - Oxygen Saturation - - Inhaled Oxygen Concentration - - Weight 50.8 kg (112 lb) 05/01/2017 8:58 AM EDT Height 162.6 cm (5' 4) 05/01/2017 8:58 AM EDT Body Mass Index 19.22 05/01/2017 8:58 AM EDT documented in this encounter Progress Notes Ceci Benson MD - 05/01/2017 9:15 AM EDT [facility] Department of Neurology, Neuromuscular Consultation Service I had the opportunity to re-evaluate Michealanthony Bradley in the Neurology clinician follow up today,05/01/17 at the request of Dr. Gutierres REASON FOR CONSULTATION: ongoing neuropathic pain in setting of CRPS1 Since last visit: She has been seen and followed by Dr. Gutierres and Dr. Potter for complex regional pain syndrome, type I after a fall in April 2015 as described in detail below. She underwent electrodiagnostic study when I last saw. She is working with Dr. Potter but is struggling with covering the expense of agents - worker's compensation is no longer covering medical expenses. She is currently using naltrexone, compounded topical cream, and more recently she will [place] She is also seeing psychiatry for anxiety and depression. Medications that were helping include: amitriptyline (sleep), topical cream (pain), Vicodin (pain, took the edge off), Adderall (mood), naltrexone. Medications that have not been helpful: Ketamine jonel; dry needling of the left foot, acupuncture Medications not tried: ketamine infusion. 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 Current symptoms: Left leg: buzzing, burning and poking involving the foot and extending up to mid-calf; there is associated lancinating. This was recently associated with woody edema of the right knee and distal leg. Sensation is relatively preserved. Right leg:crawling sensation over medial calf; hot sensation lateral calf; ice cold between the toes. Also associated with swelling. HPI: Nara Huerta is a 51 y.o. female with history of a fall in April of 2015; she fell straight downward from a series of crates striking her right leg and sustaining a contusion. After the fall, she reports experiencing sudden and severe pain in the legs. X-rays in the ER immediately after the injury failed to identify a fracture; this was associated with ecchymosis and swelling in the leg. Since that time she has been in severe pain predominantly affecting the right leg but also the left leg. Shehas concerns regarding some discoloration on the medial aspect of the left leg but localizes most ofher pain to the right ankle and mid-leg. She describes tickling in the medial aspect of the foot and ankle but burning discomfort in the dorsum of the foot over the lateral toes. She endorses heaviness in her foot and leg that is ill-defined and widespread. She has some difficulty isolating pain from weakness as the pain has been severe. Currently, the activities that remain difficult for her include standing and walking; in particular,if she needs to walk quickly her pain increases and persists. That being said, she is not pain free during periods of rest. Because of the discoloration on the right leg, she expresses concerns regarding blood clot; U/S was reportedly performed by her PCP who did not identify venous occulusion per her report. I do not have access to these records. Per orthopedic office notes, she has been unable to tolerate bracing or splinting due to pain. Repeat X-rays were performed 05/14/15 and failed to identify bony or joint space abnormalities. MRI was performed late May; per office reports, this revealed a small joint effusion and swelling around the peroneus longus tendon without structural tears. A course of Neurontin was recommended through her orthopedics office: she has difficulties with drowsiness and tiredness with this. Past Medical History: Past Medical History: Diagnosis Date ??? Anxiety ??? Depression ??? GERD (gastroesophageal reflux disease) ??? Joint pain Past surgical history: Past Surgical History: Procedure Laterality Date ??? FINGER OSTEOTOMY Left long finger, 10/21/14, Dr. Abarca Medications: Current Outpatient Prescriptions on File Prior to Visit Medication Sig Dispense Refill ??? NALTREXONE HCL (NALTREXONE ORAL) Take 4.5 mg by mouth nightly. ??? dextroamphetamine-amphetamine (ADDERALL XR) 10 mg Capsule, Sust. Release 24 hr Take 10 mg by mouth every morning. 0 ??? citalopram (CELEXA) 40 mg Tablet take 1 tablet by mouth once daily 0 ??? LORazepam (ATIVAN) 0.5 mg Tablet Take 0.5 mg by mouth daily. 0 ??? amitriptyline (ELAVIL) 10 mg Tablet Take 1 tablet by mouth nightly. (Patient taking differently:Take 30 mg by mouth nightly.) 30 tablet 3 ??? amlodipine (NORVASC) 5 mg tablet Take 5 mg by mouth daily. No current facility-administered medications on file prior to visit. Allergies: No Known Allergies Family history: Family History Problem Relation Age of Onset ??? Hypertension Mother ??? Hyperlipidemia Mother ??? Arthritis Mother ??? Diabetes Mother ??? Coronary Artery Disease Early Onset Maternal Grandfather Social history: Social History Social History ??? Marital status: [...] ??? Not on file Social History Narrative Physical Exam: BP 107/73 Pulse 94 Ht 162.6 cm (5' 4) Wt 50.8 kg (112 lb) BMI 19.22 kg/m2 Appearance: The patient is a healthy-appearing female who appears of stated age and comes to her visit accompanied by her . she continues to appear uncomfortable, requiring the use of a wheelchair to travel any distance; she uses a cane for short distances but has difficulty with this. struggles to walk due to notable limp toward the right. General : alert, appears stated age and cooperative Bilateral Lower Extremities Swelling: mild edema noted over the dorsum of the right foot; this is subtle; she notes of woody prominence over the medial aspect of the left leg, mid-tibial shaft. Bruising: none noted; she alerts me to some heterogeneous blanching of the skin over the region of injury on the right; there is a patch of subtle discoloration over the medial aspect of the left leg associated with sensory disturbance. Tenderness: exquisite in the distal aspect of the legs bilaterally most notable in the ankle region;the tenderness occurs even to touch Ankle ROM: limited by pain on the right; appeared to be full on the left. Atrophy: absent Strength: see below Sensation: repeated testing was performed; roughly reduced sensation to pinprick in comparison to the contralateral side was noted in the distribution of the saphenous nerve on the right, the superficial peroneal and sural on the left. Nerve root dermatomes appear to be symmetric with the exception ofthose corresponding to the nerve distributions. The asymmetries in perception of pin did not clearlycorrespond to tibial or common peroneal distribution, nor did they correspond to sciatic nerve distribution. Two-Point Discr.: not tested Tinel's diffuse allodynia that was more pronounced in the right but also notable on the left; pain was noted to be much more prominent on the right HF HE KE KF HAB HADD ADF APF I E Right GW GW GW GW nt nt GW GW GW GW Left GW GW GW GW nt nt GW GW GW GW Strength could not be assessed due to poor activation and diffusely give way weakness; and adequate assessment could not be obtained from any muscle. Functionally, she was able to bear weight and maneuver through sitting to standing with some assistance from her . There is no atrophy or fasciculations. There is no myoclonus, tremor, change in tone, or drift. Gait and station: she rises and walks stiffly with pronounced antalgia to the right. Her aids her in ambulation. Heel and toe walking were not attempted. Tendon reflexes: biceps triceps BR patellar AJ Plantars Right nt nt nt 1+ 2 Unable to test Left nt nt nt 1+ 2 down Relevant lab: none Relevant diagnostic Tests and Imaging: NCS/EMG: The sural SNAP amplitudes were normal bilaterally with improvement in the SNAP amplitude onthe left. The superficial peroneal SNAP amplitudes were also preserved and they were symmetric. The saphenous SNAPs were also normal and symmetric. Peroneal CMAP amplitudes were preserved bilaterally. Tibial motor responses were preserved and symmetric with normal conductions. Needle EMG was not performed due to poor patient tolerance of the procedure last visit. IMPRESSION: Normal and improved study from September 2015. The asymmetry in the amplitudes of the lower extremity SNAPs has largely resolved and sensory responses are all in a normal range. Similarly, motor responses are largely unchanged and symmetric. This study supports resolution of suspected sensory mononeuropathies affecting the right saphenous and possibly left superficial peroneal sensory nerves. Clinical correlation is recommended. Assessment: Nara Huerta is a 51 y.o. female with persistent pain and ill- defined sensory disturbance after sustaining a fall and contusing both lower extremities. Electrodiagnostic examination wascompromised by poor tolerance of the procedure but suggestive of lesions affecting sensory branches including the left saphenous and right superficial peroneal nerves. These were subtle findings unassociated with needle EMG findings but correlate with her sensory examination. As there is no associatedneedle EMG findings, these lesions would be either [...] don't have the film for my review. We discussed the use of neuropathic agents; unfortunately, she is reluctant to use these agents due to concerns about care home effects and side effects. She has less concern regarding side effects of opiate agents. My opinion however is that she would be best served by neuropathic agents; given she had side effects of drowsiness with gabapentin, a lower dose could be tried with gradual escalation tomore definitive for therapeutic dose. An alternate anticonvulsant would include pregabalin 50 mg 3 times a day to be incremented as tolerated to 200 mg 3 times a day. There is evidence that the use of tricyclic antidepressant agents, nortriptyline and amitriptyline, have synergistic effects with gabape ntin. Another option would be to reinitiate gabapentin at a low dose, adding similarly low dose amitriptyline (10 mg) at night to facilitate the effect of gabapentin, help with sleep, and minimize sideeffects. Amitriptyline can be escalated gradually to a dose that optimizes pain control, sleep and drowsy side effects at 10 mg increments. Another option that I have used in addition to combination antidepressant and anticonvulsant therapy is topical agents such as lidocaine patch or cream. She seemsreluctant to go forward with this regimen. If this is the case, referral to pain clinic may be appropriate. Also, to address issues of the work relatedness of her injury, I have recommended an occupational medicine consultation. I think it's going to be important to get their guidance with respect to the occupational knee of her injury, possible/eventual return to work, and limitations as she begins to impro ve. She is in agreement with this and I have deferred specific recommendations about work related restrictions until this consultation is completed. CECI BENSON I spent 60 minutes of face-face time with the patient, with 45 minutes spent in counseling and coordination of care, excluding the time spent in performing electrodiagnostic studies. documented in this encounter Plan of Treatment Not on filedocumented as of this encounter Visit Diagnoses Diagnosis Complex regional pain syndrome type 1 of both lower extremities Mononeuritis lower limb, unspecified lat erality documented in this encounter Care Teams Director Sales Support Relationship Specialty Start Date End Date Elaine Palencia MD PCP - General 10/12/[address] [place] [address] documented as of this encounter
--- OUTSIDE RECORDS SUMMARY | 2022-02-24 00:14 | XMS_ITS | Encounter Summary ---
:1965 Author Organization [facility] [place] [address] Care Team Providers Name Role Phone Elaine Palencia MD Primary Care Provider Encounter Details Date Type Department Care Team Description 04/17/2017 Telephone Care Management Alana Mcclellan, LONG [place] [place] [address] Social History Tobacco Use Types Packs/Day Years Used Date Never Smoker Smokeless Tobacco: Never Used Alcohol Use Standard Drinks/Week Comments No 0 (1 standard drink = 0.6 oz pure alcoho l) Sex Assigned at Date Recorded Not on file documented as of this encounter Miscellaneous Notes Telephone Encounter - Alana Mcclellan, LONG WALL MINING MACHINE TENDER - 04/17/2017 1:48 PM EDT [facility] FOLLOW UP CONTINUING CARE MANAGEMENT SOCIAL WORK ? CLAIM # [id number] DOI: ??04/28/15 WC INSURANCE COMAPANY: [employer] CONTACT:Lalo Cao NCM: Shayla Balderas Phone: Big Data Software Engineer: Bere Farrell CBT therapist: Tiffanie Nielson Call to pt at request of Dr Potter. Pt continues to struggle. WC insurance is denied. Big Data Software Engineer is appealing. Pt has been offered Ketamine infusing by Dr Potter but with the denial and the only treating provider out of state this is not a realistic option in the pt's mind. She is also worried about the sideeffects. She has agreed to try Medicinal Marijuana but this has ot be paid for out of pocket. SSDI payments have not been started even though no longer provides TTD payments. Pt continues to cope as well as can be expected. She continues with supportive therapy. This CCM will attend her upcomming appointments on 05/01 with Elicia Tavares and Nenita. documented in this encounter Plan of Treatment Not on filedocumented as of this encounter Visit Diagnoses Not on filedocumented in this encounter Care Teams Sleeve Setter Safety Stitch Relationship Specialty Start Date End Date Elaine Palencia MD PCP - General 10/12/11 Johanna PAZ [address] [place] [address] documented as of this encounter
--- OUTSIDE RECORDS SUMMARY | 2022-02-24 00:14 | XMS_ITS | Encounter Summary ---
:1965 Author Organization [facility] [place] [address] Care Team Providers Name Role Phone Elaine Palencia MD Primary Care Provider Encounter Details Date Type Department Care Team Description 07/12/2017 Notes Only Care Management [place] [address] Social History Tobacco Use Types Packs/Day Years Used Date Never Smoker Smokeless Tobacco: Never Used Alcohol Use Standard Drinks/Week Comments No 0 (1 standard drink = 0.6 oz pure alcoho l) Sex Assigned at Date Recorded Not on file documented as of this encounter Progress Notes Alana Mcclellan MSW - 07/12/2017 12:10 PM EST CCM sent pt copy of Clinical Pharmacology review of her meds. She will take copy of this note to herPCP and therapist. documented in this encounter Plan of Treatment Not on filedocumented as of this encounter Visit Diagnoses Not on filedocumented in this encounter Care Teams Piping Design Specialist Relationship Specialty Start Date End Date Elaine Palencia MD PCP - General 10/12/11 [address] [place] [address] documented as of this encounter
--- OUTSIDE RECORDS SUMMARY | 2022-02-24 00:14 | XMS_ITS | Encounter Summary ---
:1965 [place] [address] Care Team Providers Name Role Phone Elaine Palencia MD Primary Care Provider Encounter Details Date Type Department Care Team Description 11/21/2016 [facility] [address] [place] [address] [place] [address] [phone] (Wo rk) Social History Tobacco Use Types [...] on filedocumented in this encounter Care Teams Development Planner Relationship Specialty Start Date End Date Elaine Palencia MD PCP - General 10/12/11 [address]anna [address] [place], [place] [id number] documented as of this encounter
--- OUTSIDE RECORDS SUMMARY | 2022-02-24 00:14 | XMS_ITS | Encounter Summary ---
:1965 Author Organization [facility] [place] [address] Care Team Providers Name Role Phone Elaine Palencia MD Primary Care Provider Reason for Referral Consultation (Routine) - Closed Specialty Diagnoses / Procedures Referred By Contact Refer red To Contact Neurology Diagnoses Work related injury Rani Gutierres MD Lawson, Victoria H, MD [facility] DR DEREJE FERNANDEZ [place] [address] [place] [phone] Fax: Referral ID Status Reason Start Date Expiration Date Visits V isits Requested Authorized [id number] Closed Consult, 02/22/2017 02/22/2018 1 1 Test & Treat Encounter Details Date Type Department Care Team Description 02/22/2017 Orders Only Occupational Medicine at Rani Gutierres MD Work related injury [address] [facility] [address] [place] [address] OCCUPATIONAL [phone] MEDICINE [place] [address] Social History Tobacco Use Types Packs/Day Years [...] Referral Routine Work related injury O rdered: Neurology 02/22/2017 documented as of this encounter Visit Diagnoses Diagnosis Work related injury Injury, other and unspecified, unspecifi ed site documented in this encounter Care Teams De Icer Relationship Specialty Start Date End Date Elaine Palencia MD PCP - General 10/12/[address] [place] [address] documented as of this encounter
--- OUTSIDE RECORDS SUMMARY | 2022-02-24 00:14 | XMS_ITS | Encounter Summary ---
:1965 Author Organization [facility] Address [facility] [address] [place] [address] Care Team Providers Name Role Phone Elaine Palencia MD Primary Care Provider Reason for Visit Reason Comments Pain Management 8 wk f/u Encounter Details Date Type Department Care Team Description 10/24/2017 Office Visit Pain Management at Heydi Potter Comp [facility] pain Soy NAIR syndrome type 1 of [facility] low er extremity, Drive DR unspecified laterality [place], [place] [facility] [id number] [place] [address] [phone] Social History Tobacco Use Types Packs/Day Years Used Date Never Smoker Smokeless Tobacco: Never Used Alcohol Use Standard Drinks/Week Comments No 0 (1 standard drink = 0.6 oz pure alcoho l) Sex Assigned at Date Recorded Not on file documented as of this encounter Last Filed Vital Signs Vital Sign Reading Time Taken Comments Blood Pressure 119/75 10/24/2017 1:29 PM EST Pulse 87 10/24/2017 1:29 PM EST Temperature - - Respiratory Rate - - Oxygen Saturation 100% 10/24/2017 1:29 PM EST Inhaled Oxygen Concentration - - Weight 50.3 kg (111 lb) 10/24/2017 1:29 PM EST Height - - Body Mass Index 20.3 08/21/2017 4:47 PM EST documented in this encounter Progress Notes Heydi Potter MD - 10/24/2017 1:30 PM EST Images from the original note were not included. PAIN CLINIC REEVALUATION PATIENT NAME: Nara Huerta : 1965 DATE OF SERVICE: 10/24/2017 Chief Complaint: Bilateral leg and foot pain CRWork related injury: 04/28/2015 Date of Initial Evaluation in the Pain Clinic: 02/26/17 Date of most recent evaluation in the Pain Clinic: 08/21/17 HPI: Subjective Nara Huerta is a 51 [...] about [address] Kim at [facility]. Dr. Kim requested further evaluation. I do not have the notes from [facility] available to me today. The patient [...] bones. She was evaluated by Orthopedics at [facility]. She had ongoing pain. She was referred to Dr. Gandhi and it was recommended that she be seen by Dr. Gutierres in [facility] Med at [facility]. INTERVAL HX: 03/12/17 At the last visit (02/26/17), the following plan was delineated: 1. UDS-last hydrocodone 25 am 2. Compounded ointment with ketamine 5%, diclofenac 3%, gabapentin 6%, lidocaine 5%, apply to painful area up to four times per day as needed. (ordered through [facility]). Pt did not receive this; her insurance would not pay for it. 3. STOP taking hydrocodone before starting low dose naltrexone 4. low dose naltrexone 4.5 mg at bedtime. ([facility]) the patient had to pay for this out of her own pocket. 5. Ketamine troches 10 mg, dissolve 1/2 jonel in mouth up to four times per day as needed. ([facility]) The patient did not get [...] times per day as needed. (ordered through [facility]). Will change to ([facility]). -she is taking low dose naltrexone 4.5 mg at bedtime. ([facility]) -she trialed Ketamine troches 10 mg, [...] her insurance company will not cover it. ([facility]) -the patient is very frustrated and feels that she is suffering needlessly because she can't have necessary treatment. 08/21/2017 08/21/2017: 1. The patient had an evaluation [...] her insurance company will not cover it. ([facility]) 3. She finds the amitriptyline helpful for sleep. 4. She is using low dose naltrexone 4.5 mg at bedtime, but is finding it very expensive. Her insurance will not cover it. ([facility]). 5. The patient has a deposition [...] of pocket. Her funds are very limited. LOCATION: Bilateral legs and feet. PAIN DESCRIPTION: aching, stabbing, burning or shooting; buzzing on the left PRESENT: all of the time. PAIN INCREASED BY:standing and walking. PAIN DECREASED BY: recumbency eases pain, but does not resolve pain. PAIN LEVEL 02/26/2017 03/12/17 05/10/17 06/12/17 08/21/17 10/24/2017 AT REST 7 7 6-7 6-7 6-7 6-7 WORST over past week 9 9 7-8 6-7 6-7 9 BEST over past week 7 7 6 6-7 6-7 6-7 AVERAGE over past week 7 7 7 6-7 6-7 6-7 CRPS symptoms: 02/26/2017 03/12/2017 05/10/2017 08/21/17 10/24/2017 [...] a benzodiazepine? yes Current use of other QA CONSULTANT depressant? No Current diagnosis of Obstructive Seep [...] Prescription Drug Monitoring Program data reviewed? Yes 10/24/2017 Inconsistencies? No Urine drug screen ordered? No [...] allergies indicates no known allergies. MEDICATIONS: Medications 10/24/17 1329 Medication Sig Taking? buPROPion (WELLBUTRIN SR OR ZYBAN) 150 mg [...] Narrative Review of Systems PHYSICAL EXAM: BP 119/75 Pulse 87 Wt 50.3 kg (111 lb) SpO2 100% BMI 20.3 kg/m2 Physical Exam Constitutional: She is oriented [...] for the Study of Pain for CRPS, [facility] criteria. The CRPS has manifested as a [...] defects, panic attacks), nausea/vomiting, somnolence, cardiovascular stimulation, QA CONSULTANT neurotoxicity. We discussed that medication will be given to try to prevent or mitigate side effects. The patient will need to have a dumpster driver and have someone with them at home after the infusion. They will also need to have cardiac and psychologic evaluation as well as labwork prior to proceeding with the infusion. Written information was provided to the patient for review. We discussed that the ketamine infusion program at [facility] is now on hold. I have been referring patients to [facility]. When the ketamine infusion program was ongoing at [facility], 9 patients with CRPS were reviewed and had over 70% improvement in pain, function and mood. The patient has difficulties with considering a trip to [place] for ketamine infusion. She has an elderly [...] result of their injury that occurred at [facility] on 04/28/15. We discussed that the [...] motor imagery. 5. Follow up with Dr. Potetr in 8 weeks (30 minutes) 6. Recommend low dose outpatient ketamine infusion 7. Unfortunately, at this time, treatment options are somewhat limited, since her insurance company is not covering treatments that can actually help this patient improve. 8. Continue OT/PT using graded motor imagery and mirror therapy. Thank you for the opportunity to participate in Nara Huerta's care. Please feel free to contactme with any questions. Sincerely, Heydi Potter MD [facility] [address] [address] / [facility] documented in this encounter Plan of Treatment Not on filedocumented as of this encounter Visit Diagnoses Diagnosis Complex regional pain syndrome type 1 of lower extremity, unspecified laterality documented in this encounter Care Teams Channel Process Plant Operator Relationship Specialty Start Date End Date Elaine Palencia MD PCP - General 10/12/11 [address]anna [address] [place] [address] documented as of this encounter
--- OUTSIDE RECORDS SUMMARY | 2022-02-24 00:14 | XMS_ITS | Encounter Summary ---
:1965 Author Organization [facility] [place] [address] Care Team Providers Name Role Phone Elaine Palencia MD Primary Care Provider Encounter Details Date Type Department Care Team Description 02/28/2017 Telephone Pain Management at Jamie Perez, [place] [address] Social History Tobacco Use Types Packs/Day Years Used Date Never Smoker Smokeless Tobacco: Never Used Alcohol Use Standard Drinks/Week Comments No 0 (1 standard drink = 0.6 oz pure alcoho l) Sex Assigned at Date Recorded Not on file documented as of this encounter Miscellaneous Notes Telephone Encounter - Jamie Pillai RN - 02/28/2017 10:31 AM EDT Received a message from Helene at [facility] stating that they are not handling the compound cream script written by Jd Potter MD and that this issue should be [facility] to [facility]. Called [facility] and received the contact info for [facility] and left a message requesting further information. documented in this encounter Plan of Treatment Not on filedocumented as of this encounter Visit Diagnoses Not on filedocumented in this encounter Care Teams Beader Tender Relationship Specialty Start Date End Date Elaine Palencia MD PCP - General 10/12/11 Johanna [address] [place], [place] [id number] documented as of this encounter
--- OUTSIDE RECORDS SUMMARY | 2022-02-24 00:15 | XMS_ITS | Encounter Summary ---
:1965 Author Organization [facility] [place] [address] Care Team Providers Name Role Phone Elaine Palencia MD Primary Care Provider Encounter Details Date Type Department Care Team Description 08/03/2016 Notes Only Occupational Medicine at Rani Gutierres MD [facility] [address]ahan [place] [address] [place] [address] [phone] (Wo rk) Social History Tobacco Use Types Packs/Day Years Used Date Never Smoker Alcohol Use Standard Drinks/Week Comments No 0 (1 standard drink = 0.6 oz pure alcoho l) Sex Assigned at Date Recorded Not on file documented as of this encounter Progress Notes Rani Gutierres MD - 08/03/2016 8:22 AM EST Images from the original note were not included. Kelly Beth Karen L, MD ? Cc: Kelly Beth ? Nc Lyudmila Zuniga Nara's psychotherapist is calling to speak with you. ??She can be reached at [phone]. ??She will also try to reach you on your [facility] [facility] email address. Thank you, Kelly Plan: [facility] CCM has spoken with her and plan made. See [facility] note. Rani Gutierres MD, PhD, MPH, FACOEM Tractor Operator Helper Section of Occupational and Environmental Medicine Department of Medicine [facility] documented in this encounter Plan of Treatment Not on filedocumented as of this encounter Visit Diagnoses Not on filedocumented in this encounter Care Teams Refueling Ramp Supervisor Relationship Specialty Start Date End Date Elaine Palencia MD PCP - General 10/12/11 [address] [place] [address] documented as of this encounter
--- OUTSIDE RECORDS SUMMARY | 2022-02-24 00:15 | XMS_ITS | Encounter Summary ---
:1965 Author Organization [facility] [address] Care Team Providers Name Role Phone Elaine Palencia MD Primary Care Provider Encounter Details Date Type Department Care Team Description 09/22/2016 Orders Only Occupational Medicine at Rani Gutierres MD [facility] [address] [place] [address] [place] [address] [phone] (Wo rk) Social History Tobacco Use Types Packs/Day Years Used Date Never Smoker Alcohol Use Standard Drinks/Week Comments No 0 (1 standard drink = 0.6 oz pure alcoho l) Sex Assigned at Date Recorded Not on file documented as of this encounter Plan of Treatment Not on filedocumented as of this encounter Visit Diagnoses Not on filedocumented in this encounter Care Teams Slot Floorperson Relationship Specialty Start Date End Date Elaine Palencia MD PCP - General 10/12/11 Johanna [address] [place], [place] [id number] documented as of this encounter
--- OUTSIDE RECORDS SUMMARY | 2022-02-24 00:15 | XMS_ITS | Encounter Summary ---
:1965 Author Organization [facility] [place] [address] Care Team Providers Name Role Phone Elaine Palencia MD Primary Care Provider Reason for Visit Reason Comments Hand Pain Encounter Details Date Type Department Care Team Description 10/12/2011 Office [place] [facility] [place]up[place] Gonzales MD Joint pain (Primary Dx); [address] [place] [address] [place], [place] [phone] [id number] Social History Tobacco Use Types Packs/Day Years Used Date Never Smoker Sex Assigned at Date Recorded Not on file documented as of this encounter Last Filed Vital Signs Vital Sign Reading Time Taken Comments Blood Pressure 110/76 10/12/2011 1:41 PM EST Pulse 74 10/12/2011 1:41 PM EST Temperature 36.8 ??C (98.2 ??F) 10/12/2011 1:41 PM EST Respiratory Rate 20 10/12/2011 1:41 PM EST Oxygen Saturation - - Inhaled Oxygen Concentration - - Weight 51.3 kg (113 lb) 10/12/2011 1:41 PM EST Height 165.1 cm (5' 5) 10/12/2011 1:41 PM EST Body Mass Index 18.8 10/12/2011 1:41 PM EST documented in this encounter Progress Notes Rupinder Gonzales MD - 10/12/2011 2:49 PM EST Nara Huerta is seen at the request of Dr. Palencia for evaluation of hand pain. The materials reviewed for this appointment include notes and labs from Dr. Palencia as well as the patient questionnaire dated 10/12/2011 with details of her past medical history, social history, family history, review of systems, functional status, medications, and allergies. These are reviewed with the patient and filed in the patient's medical record. 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 It began in the webspace between the thumb and second finger and eventually involved the second MCP and into the second PIP joint. She notes swelling or enlargement of that joint. She also noted some swelling of the soft tissue over the hypothenar eminence. This pain tends to radiate up the arm. The left hand has been involved though less persistently than the right with tenderness over the palmar aspect of the third MCP. She also notes some pain in the anatomic snuffbox of the left hand. She has also noticed some soreness in her back and she points specifically to about the L3 region and some left trochanteric bursa pain. This pain in her hand has resulted in changes in her activity of daily living and tends to hurt with repetitive use. The pain is described as sharp and bone deep not in neuropathic terms. She has had x-rays and labs which were normal. Aleve and ibuprofen were of minimal benefit. Ketoprofen which she takes for headaches is of no benefit and Tylenol has no benefit. Her past medical history is fairly benign. She does have migraine headaches and is perimenopausal with irregular periods. Social history reveals that she is and has two children in good health. Family history is positive for a mother with osteoarthritis at the knee, but no hand changes by the patient's report. She does have a brother who does not have arthritis. Review of systems is remarkable for episodes of fatigue which seems to occur in cycles and is clearly associated with non-restful sleep. The overwhelming fatigue clears as quickly as it comes and no etiology has been determined. Of late, she has been slightly more constipated and feels bloated. She has had gynecologic exams. She does not specifically answer positively to other review of systems. The patient is a never smoker and does not drink alcohol or use illicit drugs. Blood pressure 110/76, pulse 74, temperature 36.8 ??C (98.2 ??F), temperature source Oral, resp. rate 20, height 165.1 cm (5' 5), weight 51.256 kg (113 lb). On physical exam, Nara is a healthy-appearing, slender woman who looks concerned and somewhat anxious. She is accompanied by her . She has a large thyroid gland that is not particularly tender. She has no cervical adenopathy. Her mouth is unremarkable. She does not have any injection of the eyes. Her lungs are clear to auscultation. Cardiac exam reveals no murmur, rub, or gallop. Her abdomen is soft and tender in the umbilicus region. There is no enlarged liver or spleen. She does not have any peripheral edema. Joint exam of the upper and lower extremity bilaterally reveals some degrees of myofascial tenderness especially over the right epicondyles in the low back, the left trochanter, and the right trapezius. These do seem to cause persistent pain after palpation. Her joint exam is normal with the exception of the right second MCP joint which does seem larger than the others and is tender over the joint line. It is not particularly boggy nor does it feel like synovitis. The joint line of the third MCP is tender as are the second and third PIP joints. Her wrists are unremarkable. Styloid bones are not particularly tender though she does have tenderness over the shins. Her deep tendon reflexes are symmetrical with reasonable relaxation. Laboratory tests sent with the patient include a negative rheumatoid factor, negative CCP, sedimentation rate of 10, and ASHLEY of 40. White blood count slightly low at 4.03 with a normal hemoglobin of 12 and normal platelet count of 209,000. No differential was given. I personally reviewed her x-rays which do show no changes over the second right MCP joint. I should also note that there is direct tenderness in the lumbar spine about the L3 or L4 region with lesser tenderness in other areas. This is reproducible on several examinations. My impression is that Nara has localized hand pain in the setting of what sounds more like fibromyalgia syndrome with poor sleep, fatigue, and some degree of allodynia on exam. Some of her bowel complaints sound like irritable bowel and her migraine headaches may go along with this. That said, she does seem to have fairly localized bony complaints in the hands that are not easily explained. They do not particularly appear inflamed nor have they respond to anti-inflammatory drugs. The x-rays are remarkably negative for bony change. I recommended several laboratory tests including a TSH and an x-ray of her low back because of the point tenderness. I have recommended that she take 1000 internation units of vitamin D and a 1000 mg per day of calcium. She wonders if this problem is related to menopause and although I think that the allodynia/fibromyalgia component certainly can be. Currently she does not have fatigue that accompanies these joint problems, although I am again at a loss to give a diagnosis to these episodes of fatigue other than to say they probably sit into the fibromyalgia spectrum. Therapeutically, I placed the patient on tramadol to be taken three times daily. The patient will be seen again to consider an ultrasound of that area if it persists in being a problem. Results for NARA HUERTA ( ) as of 10/16/2011 09:02 10/12/2011 14:43 WBC 6.1 RBC 3.81 (L) Hemoglobin 11.8 Hematocrit 35.4 MCV 92.9 MCH 31.0 MCHC 33.3 RDWSD 46.0 RDWCV 13.5 Platelets 201 MPV 10.1 Neutr Abs (ANC) 3.65 Neutrophils % 59.9 Immature Gran % 0.00 Lymphocytes % 29.2 Monocytes % 9.0 Eosinophils % 1.6 Basophils % 0.3 Annmarie Gran Abs 0.00 Lymphocytes Abs 1.8 Monocyte Abs 0.6 Eosinophils Abs 0.1 Basophils Abs 0.0 Total Prot Elec 6.8 Albumin Elect 4.55 Alpha1-Globulin 0.22 Alpha2-Globulin 0.69 Beta Globulin 0.61 Gamma Globulin 0.73 M1 Band None Detected Scan See Note Total Bilirubin 0.2 Bili, Direct 0.1 Alk Phos 42 AST 21 ALT 14 Sodium 138 Potassium 3.9 Chloride 103 CO2 24 Anion Gap 11 BUN 9 Creatinine 0.53 (L) Estimated GFR >60 Glucose Lvl 86 Calcium 9.2 Total Protein 7.0 Albumin 4.4 TSH 2.28 AP AND LATERAL LUMBAR SPINE: INDICATION: Back pain. Point tenderness over L3-L4. TECHNIQUE: AP and lateral lumbar spine. COMPARISON: None. FINDINGS: Height of vertebral bodies and disc spaces is well preserved. Normal anterior and posterior alignment. No focal osseous abnormality evident at level documented in this encounter Miscellaneous Notes Miscellaneous - Jose De Jesus, Retort Engineer - 10/23/2011 4:21 PM EST documented in this encounter Plan of Treatment Not on filedocumented as of this encounter Procedures Procedure Name Priority Date/Time Associated Comments Diagnosis DIFFERENTIAL, Routine 10/12/2011 2:43 PM Results for this AUTOMATED EST procedure are i n the results section. CBC (WITH DIFF) Routine 10/12/2011 2:43 PM Joint pain Result s for this EST procedure are i n the results section. TSH Routine 10/12/2011 2:43 PM Joint pain Results f or this EST procedure are i n the results section. PROTEIN Routine 10/12/2011 2:43 PM Joint pain Results f or this ELECTROPHORESIS, SERUM EST proce dure are in the results section. COMPREHENSIVE Routine 10/12/2011 2:43 PM Joint pain Results for this METABOLIC PANEL EST procedure ar e in (NON-FASTING) the results section. documented in this encounter Results XR lumbar spine 2 or 3 views (10/12/2011 3:03 PM EST) Anatomical Region Laterality Modality L-spine N/A Radiographic Imaging Specimen (Source) Anatomical Collection Method Collection Time Re ceived Time Location / / Volume Laterality 10/12/2011 3:03 PM EST Narrative 10/12/2011 9:55 PM EST AP AND LATERAL LUMBAR SPINE: ?? INDICATION: ??Back pain. Point tendernes s over L3-L4. ?? TECHNIQUE: ??AP and lateral lumbar spine . ?? COMPARISON: ??None. ?? FINDINGS: ??Height of vertebral bodies a nd disc spaces is well preserved. Normal anterior and posterior alignment. No foc al osseous abnormality evident at level L3-L4. If concern persists, please consi efrain MRI. Procedure Note Lauren Jack MD - 2011 AP AND LATERAL LUMBAR SPINE: INDICATION: Back pain. Point tenderness over L3-L4. TECHNIQUE: AP and lateral lumbar spine. COMPARISON: None. FINDINGS: Height of vertebral bodies and disc spaces is well preserved. Normal anterior and posterior alignment. No foc al osseous abnormality evident at level L3-L4. If concern persists, please consi efrain MRI. Rupinder Gonzales MD IMG DX ORDERABLES DIFFERENTIAL, AUTOMATED (10/12/2011 2:43 PM EST) P athologist Signature Neutrophils % 59.9 34.0 - CERNER 71.0 % MILLENNIUM Neutr Abs (ANC) 3.65 1.50 - CERNER 6.30 MILLENNIUM x10(3)/mcL Lymphocytes % 29.2 19.0 - CERNER 53.0 % MILLENNIUM Lymphocytes Abs 1.8 1.0 - 3.6 CERNER x10(3)/mcL MILLENNIUM Monocytes % 9.0 4.0 - 13.0 CERNER % MILLENNIUM Monocyte Abs 0.6 0.2 - 1.0 CERNER x10(3)/mcL MILLENNIUM Eosinophils % 1.6 0.0 - 7.0 CERNER % MILLENNIUM Eosinophils Abs 0.1 0.0 - 0.5 CERNER x10(3)/mcL MILLENNIUM Basophils % 0.3 0.0 - 2.0 CERNER % MILLENNIUM Basophils Abs 0.0 0.0 - 0.2 CERNER x10(3)/mcL MILLENNIUM Immature Gran % 0.00 0.00 - CERNER 0.66 % MILLENNIUM Comment: Immature granulocytes(IG's)percentage an d absolute count will include metamyelocytes, myelocytes, and promyelo cytes. Blood smears from CBCs yielding IG's will be scanned manually for concor dance. If this scan disagrees with the automated IG or if promyelocytes are not ed, a manual differential will be performed. Annmarie Gran Abs 0.00 0.00 - 0.05 x10(3)/mcL CER NER MILLENNIUM Specimen Anatomical Collection Method Collection Time Receive d Time (Source) Location / / Volume Laterality Blood specimen 10/12/2011 2:43 PM 012 2:48 (specimen) EST PM EST Rupinder Gonzalse MD HEMATOLOGY ORDERABLES Performing Organization Address City/State/[place] [address] CERNER MILLENNIUM Protein Electrophoresis, serum (10/12/2011 2:43 PM EST) Patholo gist Method Time Signature Total Prot 6.8 6.1 - 8.0 CERNER Elec gm/dL MILLENNIUM Albumin Elect 4.55 3.60 - 6.00 CERNER gm/dL MILLENNIUM Alpha1-Globul 0.22 0.10 - 0.30 CERNER in gm/dL MILLENNIUM Alpha2-Globul 0.69 0.40 - 0.90 CERNER in gm/dL MILLENNIUM Beta Globulin 0.61 0.50 - 1.00 CERNER gm/dL MILLENNIUM Gamma 0.73 0.50 - 1.30 CERNER Globulin gm/dL MILLENNIUM M1 Band None None CERNER Detected Detected MILLENNIUM gm/dL Scan See Note CERNER MILLENNIUM Comment: Please see scanned report in Ch art Review under the [facility] Laboratory Heading. Specimen Anatomical Collection Method Collection Time Receive d Time (Source) Location / / Volume Laterality Blood specimen 10/12/2011 2:43 PM 012 2:48 (specimen) EST PM EST Narrative This result has an attachment that is no t available. Rupinder Gonzales MD CHEMISTRY ORDERABLES Performing Organization Address City/[facility]/ZIP Code Phon e Number [address] CERNER MILLENNIUM TSH (10/12/2011 2:43 PM EST) athologist Signature TSH 2.28 0.27 - 4.20 CERNER mcIU/mL MILLENNIUM Specimen Anatomical Collection Method Collection Time Receive d Time (Source) Location / / Volume Laterality Blood specimen 10/12/2011 2:43 PM 012 2:48 (specimen) EST PM EST Rupinder Gonzales MD CHEMISTRY ORDERABLES Performing Organization Address City/[facility] Phon e Number [address] CERNER MILLENNIUM (ABNORMAL) CBC (with Diff) (10/12/2011 2:43 PM EST) athologist Signature WBC 6.1 4.0 - 10.0 CERNER x10(3)/mcL MILLENNIUM RBC 3.81 (L) 3.93 - CERNER 5.22 MILLENNIUM x10(6)/mcL Hemoglobin 11.8 11.2 - CERNER 15.7 gm/dL MILLENNIUM Hematocrit 35.4 34.0 - CERNER 45.0 % MILLENNIUM MCV 92.9 79.0 - CERNER 94.0 fL MILLENNIUM MCH 31.0 26.6 - CERNER 32.2 pg MILLENNIUM MCHC 33.3 32.0 - CERNER 36.5 gm/dL MILLENNIUM Platelets 201 145 - 370 CERNER x10(3)/mcL MILLENNIUM RDWSD 46.0 35.0 - CERNER 46.0 fL MILLENNIUM RDWCV 13.5 10.9 - CERNER 14.4 % MILLENNIUM MPV 10.1 9.0 - 12.0 CERNER fL MILLENNIUM Specimen Anatomical Collection Method Collection Time Receive d Time (Source) Location / / Volume Laterality Blood specimen 10/12/2011 2:43 PM 012 2:48 (specimen) EST PM EST Rupinder Gonzales MD HEMATOLOGY ORDERABLES Performing Organization Address City/State/[place] [address] CERNER MILLENNIUM (ABNORMAL) Comprehensive metabolic panel (non-fasting) (10/12/2011 2:43 PM EST) P athologist Signature Glucose Lvl 86 60 - 199 CERNER mg/dL MILLENNIUM Comment: Diabetes: >=200 mg/dL plus symp toms BUN 9 8 - 18 mg/dL CERNER MILLENNIUM Creatinine 0.53 (L) 0.70 - 1.20 mg/dL CERNER MILL ENNIUM Sodium 138 135 - 145 mmol/L CERNER IRAIDA NIUM Potassium 3.9 3.5 - 5.0 mmol/L CERNER IRAIDA NIUM Comment: Please note: ??Patients with WBC >100,00 0 may have falsely elevated Potassium levels. ??For accurate Potassium quantif ication in these patients send serum separator tube (gold top) for subsequent determinations. ??Contact the Clinical Chemistry Laboratory if there are any qu estions. Chloride 103 98 - 107 mmol/L CERNER MILLENN IUM CO2 24 22 - 31 mmol/L CERNER MILLENNI UM Anion Gap 11 5 - 15 mmol/L CERNER MILLENNIU M Calcium 9.2 8.5 - 10.5 mg/dL CERNER IRAIDA NIUM Total Protein 7.0 6.4 - 8.3 gm/dL CERNER MIL LENNIUM Albumin 4.4 3.2 - 5.2 gm/dL CERNER MILLENN IUM AST 21 0 - 30 unit/L CERNER MILLENNIU M ALT 14 0 - 30 unit/L CERNER MILLENNIU M Alk Phos 42 40 - 104 unit/L CERNER MILLENN IUM Total Bilirubin 0.2 0.2 - 1.3 mg/dL CERNER M ILLENNIUM Bili, Direct 0.1 0.0 - 0.3 mg/dL CERNER MILL ENNIUM Estimated GFR >60 >=60 CERNER MILLENNIU M Comment: The National Kidney Disease Education Pr ogram (NKDEP) has recommended all laboratories report estimated GFR (eGFR) along with plasma creatinine measurements to assist you with recognit ion of early kidney disease. Caveats: ??Plasma creatinine should be a t steady-state (unchanged within the past week). For patient s multiply eGFR by 1.2. The MDRD equation has not been validated for pedi atric patients and is only valid for patients with age >= 18 years. At present, NKDEP does NOT recommend usi ng the MDRD equation for drug dosing purposes and pharmacists should continue to use their current dosing methods. In addition, numerical eGFR values great er than 60 ml/min/1.73 square meters should be treated as > 60, and not an ex act number due to greater inaccuracies at these higher values. Per NKDEP, they classify normal renal function as any GFR >60ml/min/1.73 square meters; chronic kidney disease wh en GFR <60, and renal failure when GFR <15. ??This calculation may not be valid for patients with atypical muscle mass (very lean or obese), acute renal failur e, and in patients with diabetic kidney disease. References: http://nkdep.nih.gov/resources/NKDEP_Sug gestn4Labs_0606_508.pdf http://www.kidney.org/professionals/kls/ pdf/faq_gfr.pdf Specimen Anatomical Collection Method Collection Time Receive d Time (Source) Location / / Volume Laterality Blood specimen 10/12/2011 2:43 PM 012 2:48 (specimen) EST PM EST Rupinder Gonzales MD CHEMISTRY ORDERABLES Performing Organization Address City/State/ZIP [place] [address] [facility] documented in this encounter Visit Diagnoses Diagnosis Joint pain - Primary Pain in joint, site unspecified Back pain Backache, unspecified Back pain Backache, unspecified documented in this encounter Care Teams Sales And Events Coordinator Relationship Specialty Start Date End Date Elaine Palencia MD PCP - General 10/12/11 [address] [place] [address] documented as of this encounter
--- OUTSIDE RECORDS SUMMARY | 2022-02-24 00:15 | XMS_ITS | Encounter Summary ---
:1965 Author Organization [facility] [place] [address] Care Team Providers Name Role Phone Elaine Palencia MD Primary Care Provider Encounter Details Date Type Department Care Team Description 04/28/2015 Hospital Encounter Radiology Library at [facility], [place] [address] Social History Tobacco Use Types Packs/Day Years Used Date Never Smoker Sex Assigned at Date Recorded Not on file documented as of this encounter Medications at Time of Discharge Medication Sig Dispensed Refills Start Date End Date amlodipine (NORVASC) 5 mg Take 5 mg by mouth 0 tablet daily. ibuprofen (ADVIL;MOTRIN) Take 400 mg by 0 011 04/05/2017 200 mg Tablet mouth. omeprazole (PRILOSEC) 20 0 03/14/2015 01/27/2016 mg Capsule, Delayed Release(E.C.)Indications: Pain in both lower extremities citalopram (CELEXA) 40 mg 40MG, PO, Once 0 200511/18/2015 tablet daily ketoprofen (ORUDIS) 75 mg 75M Capsule(s), 0 0 10/10/2005 07/20/2016 capsule PO, Twice daily PRN documented as of this encounter Plan of Treatment Not on filedocumented as of this encounter Procedures Procedure Name Priority Date/Time Associated Diagnosis Comme nts FILM LIBRARY Routine 04/28/2015 12:00 AM Pain Results for this STORAGE ONLY DX EDT procedure ar e in LOWER EXTREMITY the results section. documented in this encounter Results Film Library- Storage only DX Lower Extremity (04/28/2015 12:00 AM EDT) Specimen (Source) Anatomical Location Collection Method / Collectio n Time Received Time / Laterality Volume Narrative SURINDER VIZCARRA - 07/23/2015 1:38 PM EST See PACS for result report. Dr Srinivasan [facility] IM FILM LIBRARY ORDERABLES Performing Organization Address City/State/ZIP Code Phon e Number [place], [place] documented in this encounter Visit Diagnoses Diagnosis Pain Generalized pain documented in this encounter Care Teams Pattern Filer Relationship Specialty Start Date End Date Elaine Palencia MD PCP - General 10/12/11 [address] [place] [address] documented as of this encounter
--- OUTSIDE RECORDS SUMMARY | 2022-02-24 00:15 | XMS_ITS | Encounter Summary ---
:1965 Author Organization [facility] [place] [address] Care Team Providers Name Role Phone Elaine Palencia MD Primary Care Provider Reason for Visit Reason Onset Date Comments Other 09/14/2015 Other Encounter Details Date Type Department Care Team Description 09/14/2015 Telephone Neurology at [facility] [place] Ceci Tavares MD [facility] (Other[facility] [place] [place] [address] NEUROLOGY DEPT [phone] [place], [place] [address] (Wo rk) Social History Tobacco Use Types Packs/Day Years Used Date Never Smoker Alcohol Use Standard Drinks/Week Comments No 0 (1 standard drink = 0.6 oz pure alcoho l) Sex Assigned at Date Recorded Not on file documented as of this encounter Miscellaneous Notes Telephone Encounter - Marci Ramirez RN - 09/16/2015 3:[address] Tavares: Ask patient what she would like from this neurology office. Refer patient to her PCP for continuum of care under the direction of Neurologists' recommendations. Call to patient and relayed the message above. 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 Dr. Albert also stated, Dr. Albert told me there was nothing that I can do for you, and no you need to be followed by neurology. Instructed patient that the recommended use of amitriptyline and gabapentin is used to pain management, and this nurse referred patient back to her PCP to continue care under the recommendations of . Patient verbalized understanding to instructions. Telephone Encounter - Marci Ramirez RN - 09/15/2015 4:25 PM EST Caller: patient. Reason for call: Patient is concerned about Dr. Albert ordering amitriptyline for pain, and states, worker's compensation is questioning why this medication was ordered, because it was meant for depression and not pain. This nurse explained to this patient that this medication along with gabapentin suggested by Dr. Tavares is used to manage her pain. Patient repeatedly said, but worker compensation won't cover this medication because it is used for depression and not for pain. Re instructed the patient on the use of the above medications if used together manages pain effectively. Patient agreed to take the Neurontin along with the amitriptyline for pain management. Plan: Will discuss face to face with Dr. Tavares. Telephone Encounter - Marci Ramirez RN - 09/15/2015 8:[address] Tavares: Neurology should care for the neurologic part and orthopedics for the orthopedic part! Telephone Encounter - Marci Ramirez RN - 09/14/2015 11:29 AM EST Last appointment with Dr. Tavares 09-06-[address] Abarca at the [facility] in [place], [place]. Caller: Patient. Reason for call: Patient is confused on if the orthopedic or neurology should be now following her care for her injury at work. Clarification: Call made to the [facility], by this nurse, for clarification on patient's care. According to Dr. Abarca last note from patient's appointment yesterday, his recommendations are to f/u with Dr. Tavares to start her plan, on seeing occupational medicine, and medication for pain management that Dr. Tavares has recommended. Dr. Abarca did prescribe amitriptaline 10 mg at . Plan: Dr. Abarca will fax office note from . Forwarded to Dr. Tavares for Review and comment. Telephone Encounter - Zoë Cid - 09/14/2015 10:37 AM EST Patient called in today regarding medication that Dr. Tavares would like for the patient to be on. Patient states she saw her Orthopedic Dr. And he states that she is no longer in his care at this pointand she will need to have her prescriptions from Dr. Tavares. Patient states she will need to speak with the nurse regarding us prescribing these medications for her. Patient would like a call back to discuss. documented in this encounter Plan of Treatment Not on filedocumented as of this encounter Visit Diagnoses Not on filedocumented in this encounter Care Teams Crew Manager Relationship Specialty Start Date End Date Elaine Palencia MD PCP - General 10/12/11 [address] [place] [address] documented as of this encounter
--- OUTSIDE RECORDS SUMMARY | 2022-02-24 00:15 | XMS_ITS | Encounter Summary ---
:1965 Author Organization [facility] [place] [address] Care Team Providers Name Role Phone Elaine Palencia MD Primary Care Provider Reason for Visit Reason Comments Skin Check Encounter Details Date Type Department Care Team Description 12/01/2014 [facility] Royce NAIR Eczematous dermatitis [address] [facility] [address] B DERMATOLOGY [place], [place] [id number] [phone] Social History Tobacco Use Types Packs/Day Years Used Date Never Smoker Sex Assigned at Date Recorded Not on file documented as of this encounter Patient Instructions Patient InstructionsElsa Lockett LPN - 12/01/2014 5:01 PM EDT Images from the original note were not included. [facility] Dermatitis: After Your Visit Your Care Instructions Dermatitis is the general name used for any rash or inflammation of the skin. Different kinds of dermatitis cause different kinds of rashes. Common causes of a rash include new medicines, plants (such as poison oak or poison karey), heat, stress, and allergies to soaps, cosmetics, detergents, chemicals,and fabrics. Certain illnesses can also cause a rash. Unless caused by an infection, these rashes cannot be spread from person to person. How long your rash will last depends on what caused it. Rashes may last a few days or months. Follow-up care is a yeager part of your treatment and safety. Be sure to make and go to all appointments, and call your doctor if you are having problems. It???s also a good idea to know your test resultsand keep a list of the medicines you take. How can you care for yourself at home? ?? Do not scratch. Cut your nails short, and file them smooth. Or you may wear gloves if this helps keep you from scratching. ?? If you use soap on the rash, choose a gentle soap and use as little as possible. ?? Put cold, wet cloths on the rash to reduce itching. ?? Keep cool, and stay out of the sun. Heat makes itching worse. ?? Leave the rash open to the air when you can. If your clothes have to cover the rash, wear cotton or silk. ?? If the rash itches, use hydrocortisone cream. Follow the directions on the label. Calamine lotionmay help for plant rashes. ?? Try an npju-wfr-kouotss antihistamine such as diphenhydramine (Benadryl) or chlorpheniramine (Chlor-Trimeton). Follow the directions on the label. ?? If you get a prescription steroid cream or pills, use them as directed. When should you call for help? Call your doctor now or seek immediate medical care if: ?? You have signs of infection, such as: ?? Increased pain, swelling, warmth, or redness. ?? Red streaks leading from the rash. ?? Pus draining from the rash. ?? A fever. ?? You have joint pain along with the rash. ?? The rash gets worse or spreads to other parts of your body. Watch closely for changes in your health, and be sure to contact your doctor if: ?? You do not get better after 2 to 3 weeks of home treatment. Where can you learn more? Visit our health information library at [email or web address] You can also view health information on [employer], your personal patient account. Log in or sign up today. Enter F270 in the search box to learn more about Dermatitis: After Your Visit. ?? [id number] [employer]. Care instructions adapted under license by [facility]. This care instruction is for use with your licensed healthcare professional. If you have questionsabout a medical condition or this instruction, always ask your healthcare professional. [employer] disclaims any warranty or liability for your use of this information. Content Version: 10.3.174997; Current as of: November 12, 2013 documented in this encounter Progress Notes Joaquin Chi MD - 12/01/2014 5:24 PM EDT Problem: 1. Dermatitis. 2. Paronychia. Nara follows up and continues to have problems with her nails, although they are better than when I last saw her in September of 2013. Also this winter she has itchy patches on her arms and on her back that she does not recall having had before. 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 Physical examination today reveals a pleasant 48-year-old woman who has patchy eczematous dermatitis on the left elbow and on the lower central back and mid back. It is subacute and dry. She has no active paronychia but evidence of mycotic disease with lateral nailfold areas involved with a whitish subungual discoloration extending back several millimeters from the proximal nail tip on several of her fingernails. Assessment and Plan: 1. Paronychia, recurrent, with associated tinea unguium. a. We will call in another prescription for thymol 3% in ethyl alcohol to be applied on a b.i.d. basis to affected nails for three months, then return to clinic. b. If not clear at that time, would then advance to terbinafine. 2. Eczematous dermatitis, back. a. Prescription given for triamcinolone 0.1% cream, apply on a b.i.d. basis to affected areas until clear; 80 grams dispensed with three refills. Return to clinic here in three months. COPY: Elaine Palencia M.D. documented in this encounter Plan of Treatment Not on filedocumented as of this encounter Visit Diagnoses Diagnosis Tinea unguium Dermatophytosis of nail Eczematous dermatitis Contact dermatitis and other eczema, due to unspecified cause documented in this encounter Care Teams Behavioral Health Consultant Relationship Specialty Start Date End Date Elaine Palencia MD PCP - General 10/12/11 [address] [place] [address] documented as of this encounter
--- OUTSIDE RECORDS SUMMARY | 2022-02-24 00:15 | XMS_ITS | Encounter Summary ---
:1965 Author Organization [facility] [place] [address] Care Team Providers Name Role Phone Elaine Palencia MD Primary Care Provider Reason for Referral Diagnostic Test (Routine) - Closed Specialty Diagnoses / Procedures Referred By Contact Refer red To Contact Radiology Diagnoses Work related injury Rani Gutierres MD [facility] Rad Mri Procedures MRI Lower Extremity Non Joint wo Contrast [facility] [place] [address] [place] [address] Referral ID Status Reason Start Date Expiration Date Visits V isits Requested Authorized [id number] Closed Specialty 09/18/2016 12/17/2016 1 1 Service Requested Reason for Visit Diagnostic Test (Routine) - Closed Specialty Diagnoses / Procedures Referred By Contact Refer red To Contact Radiology Diagnoses Work related injury Rani Gutierres MD [facility] Rad Mri Procedures MRI Lower Extremity Non Joint wo Contrast [facility] [place] [address] [place] [address] Referral ID Status Reason Start Date Expiration Date Visits V isits Requested Authorized [id number] Closed Specialty 09/18/2016 12/17/2016 1 1 Service Requested Encounter Details Date Type Department Care Team Description 09/22/2016 Hospital Encounter MRI at [facility] Rani Gutierres, Work related injury [facility] MD [place], [place] [address] OCCUPATIONAL [phone] [place] [address] Social History Tobacco Use Types Packs/Day Years Used Date Never Smoker Alcohol Use Standard Drinks/Week Comments No 0 (1 standard drink = 0.6 oz pure alcoho l) Sex Assigned at Date Recorded Not on file documented as of this encounter Medications at Time of Discharge Medication Sig Dispensed Refills Start Date End Date amitriptyline (ELAVIL) 10 Take 1 tablet by 30 tablet 3 11/01 mg Tablet mouth nightly. amlodipine (NORVASC) 5 mg Take 5 mg by mouth 0 tablet daily. ibuprofen (ADVIL;MOTRIN) Take 400 mg by 0 011 04/05/2017 200 mg Tablet mouth. citalopram (CELEXA) 20 mg Reported on 09/07/2016 0 07/24/2016 09/25/2016 Tablet triamcinolone (KENALOG) Reported on 0 06/15/2016 03/12/2017 [...] Name Priority Date/Time Associated Diagnosis Comme nts MRI LOWER EXTREMITY Routine 09/22/2016 6:06 PM Work related in jury Results for this NON JOINT WO EST procedure are i n CONTRAST the results section. documented in this encounter Results MRI Lower Extremity Non Joint wo Contrast (09/22/2016 6:06 PM EST) Anatomical Region Laterality Modality Hip, Thigh, Knee, Leg, Ankle, Foot Magne tic Resonance Specimen (Source) Anatomical Location Collection Method / Collectio n Time Received Time / Laterality Volume Impressions 09/25/2016 8:57 AM EST 1. ??Subtle alteration of signal intensity within the peroneus brevis muscles peripherally possibly reflecting earlier injury to the superficial portion of the muscle and the overlying fascia. The re is however no obvious fascial defect or muscle herniation. The significance t his finding is unclear. 2. ??No mass. No Gibson Ravin lesion. Narrative 09/25/2016 8:57 AM EST EXAMINATION: MRI LOWER EXTREMITY NON JOINT WO CONTRAST CLINICAL HISTORY: ISADORA Mendez: Ple ase image anterior mid-shaft of the right lower leg in area of previous douglas ring injury during fall - concern for subcutaneous collection or Gibson Alex e lesion. Thx, KH TECHNIQUE: MR images of the right lower leg were acquired without contrast. The study includes T1-weighted, inversion re covery and fat-suppressed T2-weighted images. COMPARISON: X-rays 05/18/2016 and MRI sca n 11/17/2015. FINDINGS: No mass is identified. No abnormal fluid collections. Signal intensity within the subcutaneous fat is normal. Muscle signal intensity is normal with t he possible single exception of very subtle edema-like signal intensity at th e periphery of the peroneus muscles on the fat-suppressed T2-weighted images. A s seen on axial image 37 of series 4 this subtle increased signal intensity o n T2-weighted images at the interface between muscle and the overlying deep fa scia is a nonspecific finding of uncertain significance. Given the patien t's localized tenderness and the history of previous shear injury to the lower le g I suspect that this is posttraumatic. There is however no obvious defect in th e fashion. No herniation of muscle is identified. The muscle is otherwise enti rely normal. Bone marrow signal intensity is normal. No fracture is identified. Procedure Note Tejas Mendez MD - 09/25/2016Forma tting of this note might be different from the original. EXAMINATION: MRI LOWER EXTREMITY NON JAGUAR NT WO CONTRAST CLINICAL HISTORY: ATTKrystle Mendez: Ple ase image anterior mid-shaft of the right lower leg in area of previous douglas ring injury during fall - concern for subcutaneous collection or Gibson Alex e lesion. Thx, KH TECHNIQUE: MR images of the right lower leg were acquired without contrast. The study includes T1-weighted, inversion re covery and fat-suppressed T2-weighted images. COMPARISON: X-rays 05/18/2016 and MRI sca n 11/17/2015. FINDINGS: No mass is identified. No abnormal fluid collections. Signal intensity within the subcutaneous fat is normal. Muscle signal intensity is normal with t he possible single exception of very subtle edema-like signal intensity at th e periphery of the peroneus muscles on the fat-suppressed T2-weighted images. A s seen on axial image 37 of series 4 this subtle increased signal intensity o n T2-weighted images at the interface between muscle and the overlying deep fa scia is a nonspecific finding of uncertain significance. Given the patien t's localized tenderness and the history of previous shear injury to the lower le g I suspect that this is posttraumatic. There is however no obvious defect in th e fashion. No herniation of muscle is identified. The muscle is otherwise enti rely normal. Bone marrow signal intensity is normal. No fracture is identified. IMPRESSION 1. Subtle alteration of signal intensity within the peroneus brevis muscles peripherally possibly reflecting earlier injury to the superficial portion of the muscle and the overlying fascia. The re is however no obvious fascial defect or muscle herniation. The significance t his finding is unclear. 2. No mass. No Gibson Ravin lesion. Rani Gutierres MD IMG MRI ORDERABLES documented in this encounter Visit Diagnoses Diagnosis Work related injury Injury, other and unspecified, unspecifi ed site documented in this encounter Care Teams Health Unit Coordinator Relationship Specialty Start Date End Date Elaine Palencia MD PCP - General 10/12/11 [address] [place] [address] documented as of this encounter
--- OUTSIDE RECORDS SUMMARY | 2022-02-24 00:15 | XMS_ITS | Encounter Summary ---
:1965 Author Organization [facility] [place] [address] Care Team Providers Name Role Phone Elaine Palencia MD Primary Care Provider Reason for Visit Reason Onset Date Comments Questions 10/20/2011 Encounter Details Date Type Department Care Team Description 10/20/2011 Telephone Rheumatology at [facility] Rupinder Gonzales MD Questions [address] [address] RHEUMATOLOGY [phone] [place] [phone] (Wo rk) Social History Tobacco Use Types Packs/Day Years Used Date Never Smoker Sex Assigned at Date Recorded Not on file documented as of this encounter Miscellaneous Notes Telephone Encounter - Sixto CheemaJASON - 10/30/2011 12:35 PM EST I spoke with Ms. Pastor This am and she is very upset. She feels that she has been ditched. She is having a lot of pain and the tramadol is not helping. She wants an MRI of her back. I suggested that she ask her PCP for this. She asked if she was being dismissed because of her accent? I relayed to her that was not the case that no one here would do that,ever. Dr. Gonzales could not finda Rheumatological problem with her.She complained of her hands hurting and I assured her that from time to time everyone has pains in their hands. That we all get the wear and tear arthritis called OA. I suggested that if she was still having back pain that she should call her PCP and try another avenue. Perhaps Neurology? She then ended the conversation abrubtly and hung up. Telephone Encounter - Rupinder Gonzales MD - 10/28/2011 8:29 AM EST Letter was send to patient prior to vacation. Please see the letter section of the chart. Telephone Encounter - Shayla Osborne LPN - 10/25/2011 11:28 AM EST Patient called very upset that Dr Gonzales had not gotten back to her with her lab results. States it puts her In a position of thinking that something was wrong with her labs. I read the results to her but toldher I could compute what they would mean in regards to her disease process and that Dr Gonzales usuallywrites a letter explaining lab results, but is on Vacation this week. Will send this note to her so she can respond to this patient who is NEW to rheumatology. Telephone Encounter - Sixto Cheema LPN - 10/25/2011 10:30 AM EST Called Nara's home and spoke with her son that stated his Mom is at work but would be home at the lunch hour and usually is home by 3 pm. Will call then. Telephone Encounter - Sixto Cheema LPN - 10/25/2011 10:24 AM EST Message copied by SIXTO CHEEMA on SunOct 25, 2011 10:24 AM ------ Message from: BEN SANCHEZ Created: SunOct 24, 2011 3:02 PM Patient would like a call regarding her lab results. She stated she has called several times and noone has returned her calls. Thank you -Morley Telephone Encounter - Sixto Cheema LPN - 10/20/2011 3:45 PM EST Nara called today asking if her labs and back x-rays have been read and evaluated. I told her that would be in touch with her with results. She stated that she is still having back pain,shoulder pain and bilateral hand pain. She is anxious for answers. She would like to have an MRI as she stated that she knows her body and this pain is not normal. I reassured Ms. Huerta that Dr. Gonzales would be in touch with her. documented in this encounter Plan of Treatment Not on filedocumented as of this encounter Visit Diagnoses Not on filedocumented in this encounter Care Teams Artificial Flowers Dyer Relationship Specialty Start Date End Date Elaine Palencia MD PCP - General 10/12/11 [address] [place] [address] documented as of this encounter
--- OUTSIDE RECORDS SUMMARY | 2022-02-24 00:15 | XMS_ITS | Encounter Summary ---
:1965 Author Organization [facility] [place] [address] Care Team Providers Name Role Phone Elaine Palencia MD Primary Care Provider Encounter Details Date Type Department Care Team Description 02/08/2016 Telephone Occupational Medicin e at [facility] Rani Gutierres MD [facility] [place] [address] OCCUPATIONAL MEDICINE [phone] [place] [address] (Wo rk) Social History Tobacco Use Types Packs/Day Years Used Date Never Smoker Alcohol Use Standard Drinks/Week Comments No 0 (1 standard drink = 0.6 oz pure alcoho l) Sex Assigned at Date Recorded Not on file documented as of this encounter Plan of Treatment Not on filedocumented as of this encounter Visit Diagnoses Not on filedocumented in this encounter Care Teams Slat Basket Top Maker Relationship Specialty Start Date End Date Elaine Palencia MD PCP - General 10/12/11 [address] [place] [address] documented as of this encounter
--- OUTSIDE RECORDS SUMMARY | 2022-02-24 00:15 | XMS_ITS | Encounter Summary ---
:1965 Author Organization [facility] [place] [address] Care Team Providers Name Role Phone Elaine Palencia MD Primary Care Provider Encounter Details Date Type Department Care Team Description 07/20/2016 Telephone Care Management Alana [place] [address] Social History Tobacco Use Types Packs/Day Years Used Date Never Smoker Alcohol Use Standard Drinks/Week Comments No 0 (1 standard drink = 0.6 oz pure alcoho l) Sex Assigned at Date Recorded Not on file documented as of this encounter Progress Notes Alana Mcclellan MSW - 07/20/2016 4:51 PM EST [facility] FOLLOW UP CONTINUING CARE MANAGEMENT SOCIAL WORK S/O Nara Huerta was seen in [facility] with Dr Gutierres. Please see provider note for ov details. Pt was accompanied by her and her NCM. Pt reports she dried dry needling and this made her symptoms worse. She has found acupuncture to reduce her symptoms a little. She finds CBT to be very helpful. She is scheduled to have a trial of Scrambler Therapy. At this point her corporate associate attorney and the NCM have worked together to access all recommended treatments. A/Pt's affect is brighter and she seem seems in less pain P/ Patient will continue with current treatment plan. He NCM will call as needed for assistance. documented in this encounter Miscellaneous Notes Telephone Encounter - Alana Mcclellan MSW - 07/20/2016 5:03 PM EST Addendum: Pt would like to consider trauma theatre EMR treatment. CCM will review this with pt's therapist andbe sure That her work with not include exposure therapy and in face cheerleading coach her on helping pt reinforce the theatre work. If she agrees then we will introduce pt to trauma therapy at next visit. documented in this encounter Plan of Treatment Not on filedocumented as of this encounter Visit Diagnoses Not on filedocumented in this encounter Care Teams Training Administrator Relationship Specialty Start Date End Date Elaine Palencia MD PCP - General 10/12/11 [address] [place] [address] documented as of this encounter
--- OUTSIDE RECORDS SUMMARY | 2022-02-24 00:15 | XMS_ITS | Encounter Summary ---
:1965 Author Organization [facility] [place] [address] Care Team Providers Name Role Phone Elaine Palencia MD Primary Care Provider Reason for Visit Reason Comments Pain Management Encounter Details Date Type Department Care Team Description 01/14/2016 Office Visit Pain Management at Jie Silva DO [facility] [place] [address] Bilateral leg pain [place] William Vazquez MD [facility] [place] [address] [place] [address] Social History Tobacco Use Types Packs/Day Years Used Date Never Smoker Alcohol Use Standard Drinks/Week Comments No 0 (1 standard drink = 0.6 oz pure alcoho l) Sex Assigned at Date Recorded Not on file documented as of this encounter Last Filed Vital Signs Vital Sign Reading Time Taken Comments Blood Pressure 103/61 01/14/2016 2:44 PM EDT Pulse 86 01/14/2016 2:44 PM EDT Temperature - - Respiratory Rate - - Oxygen Saturation 100% 01/14/2016 2:44 PM EDT Inhaled Oxygen Concentration - - Weight 50.8 kg (112 lb) 01/14/2016 2:44 PM EDT Height 157.5 cm (5' 2) 01/14/2016 2:44 PM EDT Body Mass Index 20.49 01/14/2016 2:44 PM EDT documented in this encounter Progress Notes Jie Silva DO - 01/14/2016 3:53 PM EDT I have seen the patient and reviewed the resident's above history and I agree with the details as written. The assessment and plan were formulated in discussion with me and I agree with them as documented. Pertinent History: Work related history of bilateral leg and left arm pain. Pertinent Exam: Per fellow Major issues addressed: Her ambigous symptoms are difficult to put together. She has had electrodiagnositc testing with some peripheral nerve findings. She does not appear to have CRPS today on evaluation, but her symptoms, pieced together, suggest either CRPS or a peripheral neuropathy. We did spend time discussing these potential diagnoses. Plan: Consider a lumbar sympathetic block, Cognitive Behavioral Therapy, and a compounded pain cream. These were discussed with the patient. JIE SILVA DO, MPH Mechanical Sound Technician of Anesthesiology and Medicine/[facility] [employer] [facility] Finishing Room Operator, Pain Medicine Fellowship [employer]BPM[employer] - Subspecialty board certification in Pain Medicine William Vazquez MD - 01/14/2016 3:18 PM EDT Images from the original note were not included. PAIN CLINIC CONSULTATION Date of Consultation: January 14, 2016 I am seeing Ms. Huerta at the request of Rani Gutierres for my opinion and recommendations regarding a work related injury . Chief Complaint: Bilateral knee to toe pain HPI: Nara Huerta is a 50 y.o. 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 Patient denies hitting her head or losing consciousness. She was initially taken to [facility] by EMS where she was evaluated and found to have now fractures and she was sent home with pain medication and crutches and recommended conservative treatment with ice and elevation. We'll follow was multiple visits with primary care physician, therapeutic surgeons, and neurology for treatment of her bilateral leg and foot pain. Please see Dr. Gutierres's note for excellent summary of treatment to date. In summary however the patient continues to have bilateral leg pain without a definitive diagnosis. There have been no recommendations for orthopedic inter vention. EMG showed studies are inconclusive but do show an abnormal conduction study of her peripheral nerves including saphenous and common peroneal nerves. However is noted that these studies are inconclusive due to patient's inability to tolerate supramaximal stimulation. She describes pain as being burning about the dorsum of her right foot and toes as well as lateral foot to the Achilles tendon. She also complains of numbness and tingling involving the entire left foot. She also describes bilateral legs and feet swelling from time to time as well as mottling of her skin. The patient has been tried a number of medications. In summary she is unable to tolerate gabapentin or Lyrica for [place] [employer] sideeffects, even at low doses. She currently tolerates amitriptyline 10 mg daily at bedtime which helpsmore for sleep and she does not notice much of a difference in her pain control with this medication. She also continues with Vicodin, Celexa, and lorazepam. She is unable to tolerate both land based and pool-based physical therapy because of extreme pain. She continues to be out of work because of her current condition. Patient does experience some nausea because of pain. Location: bilateral knee to toe pain Onset: Date of injury April 28, 2015 Precipitating Event: Fall Quality: Burning, stabbing, and needles, numbness Radiation: Bilateral legs from her feet to her knees Severity 8 out of 10 today Average: 8 out of 10 / 10 Alleviating Factors: Nothing Aggravating factors: Any movement, walking, weightbearing exercises, land-based and pool-based physical therapy Sleep: Interrupted because of pain Mood: Anxiety and depression Function: Unable to work, ambulates with cane, needs some assistance at home with chores and activities Medications tried thus far and % reduction in pain: Present: Celexa- 40 mg once a day Vicodin- 5/300 mg 10-20% reduction, feels more relaxed Amitriptyline 10 mg qhs: Just helps with sleep Lorazepam Past: Gabapentin Lyrica PT: Both land-based and pool-based physical therapy- patient unable tolerate Injections: None Surgery: None Interventions: Massage: Denies TENS: Denies Acupuncture: Denies Chiropractor: Denies PAST MEDICAL HISTORY: Past Medical History Diagnosis Date ??? Joint pain ??? GERD (gastroesophageal reflux disease) ??? Anxiety PAST SURGICAL HISTORY: Past Surgical History Procedure Laterality Date ??? Finger osteotomy Left long finger, 10/21/14, Dr. Abarca SOCIAL HISTORY: History Social History ??? Marital Status: Spouse Name: N/A Number of Children: N/A ??? Years of Education: N/A Occupational History ??? Not on file. Social History Main Topics ??? Smoking status: Never Smoker ??? Smokeless tobacco: Not on file ??? Alcohol Use: No ??? Drug Use: No ??? Sexual Activity: Not on file Other Topics Concern ??? Not on file Social History Narrative FAMILY HISTORY: Family History Problem Relation Age of Onset ??? Hypertension Mother ??? Hyperlipidemia Mother ??? Arthritis Mother ??? Diabetes Mother ??? Coronary Artery Disease Early Onset Maternal Grandfather ALLERGIES: Review of patient's allergies indicates no known allergies. MEDICATIONS: Outpatient Prescriptions Marked as Taking for the 01/14/16 encounter (Office Visit) with Jie Silva V, DO Medication Sig Dispense Refill ??? HYDROcodone-acetaminophen (VICODIN) 5-300 mg Tablet 0 ??? citalopram (CELEXA) 20 mg Tablet 40 mg. 0 ??? amitriptyline (ELAVIL) 10 mg Tablet Take 1 tablet by mouth nightly. 30 tablet 3 ??? omeprazole (PRILOSEC) 20 mg Capsule, Delayed Release(E.C.) ??? amlodipine (NORVASC) 5 mg tablet Take 5 mg by mouth daily. ??? ketoprofen (ORUDIS) 75 mg capsule 75M Capsule(s), PO, Twice daily PRN ROS: Constitutional Denies Fevers, Chills, loss of weight HEENT Denies new hearing problems, vision problems or dental problems. Cardiovascular Denies chest pain, palpitations, PA, hypertension, heart murmur. Respiratory Denies cough, SOB, wheezing, asthma. GI Denies N/V, Hepatits, yellow jaudice, liver problems. Stool incontinence Denies kidney problems, infections, blood in urine, or kidney stones, or urinary incontinence Musculoskeletal Denies other joint pains, see HPI. Neurologic Denies seizures, convulsions, stroke, shock, frequent headaches, dizziness or passing out, see HPI. Psychiatric Denies depression, anxiety, stress orsuicidal ideation. Hematologic Denies prolonged bleeding, easy bruising, lymph gland swelling Dermatologic Denies rashes, or other skin problems PHYSICAL EXAM: BP 103/61 mmHg Pulse 86 Ht 157.5 cm (5' 2) Wt 50.803 kg (112 lb) BMI 20.48 kg/m2 SpO2 100% Constitutional AxOx3, NAD, well developed, well groomed, sitting comfortably in chair. Psychiatric Affect is congruent with mood. Goal directed thought process. Good eye contact. No pain behaviors, symptom magnification, or drug seeking behavior. Communicates clearly and answers questions appropriately. Eyes No scleral icterus, pupils midline/symmetric, EOM full, conjunctiva clear. ENT moist mucous membranes; tongue protrudes midline. Hearing grossly intact. Lungs Clear to auscultation bilaterally Cardiovascular Reg RR without murmur. Bilateral dorsalis pedis pulses 2+ and equal Skin no rash, asymmetric hair loss, or shiny skin. No erythema or redness Musckuloskeletal Inspection of spine reveals good posture, without scoliosis or kyphosis. Gait is antalgic. Walks with a cane Trunk flexion to 60 degrees does notcause back pain. Trunk extension to 5 degrees does notcause back pain. Facet loading maneuvers does not cause back pain Tenderness to palpation detected over anterior right betancourt, dorsum of right foot. Straight leg raise on the right.negative and left negative There is a bump felt about her right anterior lateral betancourt. There is subjective swelling about her right lateral malleolus. Observation of bilateral calves appear to be equal in size Palpation of bilateral legs and feet appear to be similar in temperature. No gross deformity of lower extremities Neuro Sensory: Light Touch discrimination in extremities shows decreased sensation to entire left foot and anterolateral betancourt. Increase sensitivity to light touch involving the right anterior lateral betancourt and dorsum of right foot. Sensation to light touch normal above the knees Motor: Segment Muscle Action Right Left C5 Biceps Elbow flexion 5/5 5/5 C6 Extensor carpi radialis Wrist extension 5/5 5/5 C7 Triceps Elbow extension 5/5 5/5 C8, T1 Hand intrinsics Grasp 5/5 5/5 L2 Iliopsoas Hip flexion 3/5 5/5 L3 Quadriceps Knee extension 4/5 5/5 L4 Tibialis anterior Dorsiflexion 4/5 5/5 L5 Extensor hallucis Great toe extension 5/5 5/5 S1 Gastrocnemius Plantar flexion 5/5 5/5 Reflexes: Segment Tendon Right Left C5 Biceps 2+ 2+ C6 Brachioradialis 2+ 2+ C7 Triceps 2+ 2+ L3-4 Patella 2+ 2+ S1 Gastrocnemius 2+ 2+ Upper Montano Negative Negative Lower Babinski downgoing downgoing He has a normal dermatomal exam from C1-C8 and L1-S1 bilateral. He has normal strength, reflexes, and tone in all extremities without any signs of radiculopathy or myelopathy. RADIOLOGIC DATA: MRI 11/17/15 report from [facility]: Mild edema in the soft tissues of the right lower leg, mild edema of right fibular head. No fluid collection or occult fractures. Normal MRI of left lower extremity. CONTROLLED SUBSTANCE PRESCRIPTION REPORTS: [place] Medication Report: No inconsistencies [place] Medication Report: No inconsistencies myD-H Pain 01/14/2016 VR12 - Physical Summary Component 31.92 VR12 - Mental Component Summary 24.62 MODEMS Expectation 80 Family History of Substance Abuse (Female) 0 Personal History of Substance Abuse(Female) 0 Age 0 History of Preadolescent sexual abuse(Female) 0 Psychological Disease 0 ORT Total Scores (Female) 0 IMPRESSION: 1. 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 She injured her bilateral lower extremities below the knee. Workup so farhas been negative for any musculoskeletal injury. There has been some abnormal findings on EMG studies, but nothing truly definitive to date. Her MRIs are negative for any occult fractures or soft tissue injury. Ultrasounds of her lower extremities also showed normal vasculature. There is concerned that she may be developing complex regional pain syndrome. Neuropathic medications have been proven to be difficult for her to tolerate. We are recommending that he compounded ointment that she can apply to her lower extremities up to 4 times a day. She will try this and follow-up with us in one 2 months. We are also recommending that the patient consider lumbar sympathetic nerve blocks which may help in early development stages of CRPS. At this time the patient would like to avoid injections, and would like to try the ointment and will follow-up with us. She lives closer to [facility] and well make an attempt to make a follow-up appointment with Dr. Kim or Dr. Silva at that location. PLAN: -Compounded ointment to be applied to bilateral lower extremities up to 4 times a day. -Recommend referral to CBT that is closer to her home -Recommendation for lumbar sympathetic nerve blocks. Patient will consider and will follow up with us. -Patient follow-up at [facility]. If unable to get an appointment with Dr. Silva for Dr. Kim in a reasonable time at that location, she will make an appointment with us here. -We recommend caution when using both benzodiazepine's and opioids which in combination may precipitate respiratory depression MEDICAL DECISION MAKING: Our impression and treatment recommendations were discussed in detail with Nara Huerta who verbalized understanding and had no further questions. Discharge and follow-up instructions were provided and she response to the treatment plan will help determine further our plan of care and future treatment recommendations. William Vazquez MD Fellow, Pain Medicine documented in this encounter Plan of Treatment Not on filedocumented as of this encounter Visit Diagnoses Diagnosis Bilateral leg pain Pain in limb documented in this encounter Care Teams Yard Manager Relationship Specialty Start Date End Date Elaine Palencia MD PCP - General 10/12/11 [address] [place] [address] documented as of this encounter
--- OUTSIDE RECORDS SUMMARY | 2022-02-24 00:15 | XMS_ITS | Encounter Summary ---
:1965 Author Organization [facility] [place] [address] Care Team Providers Name Role Phone Elaine Palencia MD Primary Care Provider Reason for Referral Occupational Medicine (Routine) - Closed Specialty Diagnoses / Procedures Referred By Contact Refer red To Contact Occupational Medicine Diagnoses Pain in both lower extremities Ceci Benson [facility] Occ Medicine 4l [facility] [address] [place] NEUROLOGY DEPT [id number] [place] [address] Referral ID Status Reason Start Date Expiration Date Visits V isits Requested Authorized [id number] Closed Consult, 09/06/2015 09/05/2016 1 1 Test & Treat Reason for Visit Consultation (Routine) - Closed Specialty Diagnoses / Procedures Referred By Contact Refer red To Contact Neurology Diagnoses continued severe pain after contusion of the leg Jude Abarca MD [facility] Neurology 3c Procedures consult, test and treatment [address] [address] [place] [address] Referral ID Status Reason Start Date Expiration Date Visits Requ ested Visits Authorized [id number] Closed 07/27/2015 07/26/2016 1 1 Encounter Details Date Type Department Care Team Description 09/06/2015 Procedure visit Neurology [place] [facility] Ceci Benson Pain in both [facility] MD Olga extremities [facility] [place] [address] NEUROLOGY DEPT [phone] [place] [address] Social History Tobacco Use Types Packs/Day Years Used Date Never Smoker Alcohol Use Standard Drinks/Week Comments No 0 (1 standard drink = 0.6 oz pure alcoho l) Sex Assigned at Date Recorded Not on file documented as of this encounter Last Filed Vital Signs Vital Sign Reading Time Taken Comments Blood Pressure 118/79 09/06/2015 8:38 AM EST Pulse 81 09/06/2015 8:38 AM EST Temperature - - Respiratory Rate - - Oxygen Saturation - - Inhaled Oxygen Concentration - - Weight 50.8 kg (112 lb) 09/06/2015 8:38 AM EST Height 160 cm (5' 3) 09/06/2015 8:38 AM EST Body Mass Index 19.84 09/06/2015 8:38 AM EST documented in this encounter Progress Notes Ceci Benson MD - 09/06/2015 8:49 AM EST [facility] Department of Neurology, Neuromuscular Consultation Service I had the opportunity to evaluate Nara Huerta in the Neurology clinic for the first time today,09/06/2015 at the kind request of Dr. Abarca. REASON FOR CONSULTATION: pain in the right leg after a fall HPI: Nara Huerta is a 49 y.o. female with history of a fall [...] with this. Past Medical History: Past Medical History Diagnosis Date ??? Joint pain ??? GERD (gastroesophageal reflux disease) ??? Anxiety Past surgical history: Past Surgical History Procedure Laterality Date ??? Finger osteotomy Left long finger, 10/21/14, Dr. Abarca Medications: Current Outpatient Prescriptions on File Prior to Visit Medication Sig Dispense Refill ??? amlodipine (NORVASC) 5 mg tablet Take 5 mg by mouth daily. ??? citalopram (CELEXA) 40 mg tablet 40MG, PO, Once daily ??? ketoprofen (ORUDIS) 75 mg capsule 75M Capsule(s), PO, Twice daily PRN No current facility-administered medications on file prior to visit. Allergies: No Known Allergies Family history: Family History Problem Relation Age of Onset ??? Hypertension Mother ??? Hyperlipidemia Mother ??? Arthritis Mother ??? Diabetes Mother ??? Coronary Artery Disease Early Onset Maternal Grandfather Social history: History Social History ??? Marital Status: Spouse [...] file Social History Narrative Physical Exam: BP 118/79 mmHg Pulse 81 Ht 160 cm (5' 3) Wt 50.803 kg (112 lb) BMI 19.84 kg/m2 Appearance: The patient is a healthy-appearing female who appears of stated age and comes to her visit accompanied by her . she appears in discomfort, struggles to walk due to notable limp [...] NCS/EMG: The sural SNAP amplitudes were normal and symmetric with preserved conductions. The superficial peroneal SNAP amplitudes were also preserved but asymmetric with the left superficial peroneal SNAP amplitude less then 50% of that on the right. The saphenous SNAP was normal on the left but borderline on the right and half the amplitude to the contralateral side. The right peroneal motor amplitude was preserved with normal conduction velocity. Peroneal CMAP amplitudes were preserved bilaterallyrecording from the anterior tibialis. Tibial motor responses were preserved and symmetric with normal conductions. Peroneal and tibial late response latencies were normal. Needle EMG of the right lower extremity was normal albeit limited by poor tolerance and incomplete activation in most muscles. Needle study of the left EDB was normal. She was unable to tolerate additional needle EMG study. IMPRESSION: Mildly abnormal study. The asymmetry in the amplitudes of the lower extremity SNAPs suggest a mild right saphenous nerve lesion, and a left superficial peroneal nerve lesion, although this should be interpreted with caution given difficulties she had tolerating supramaximal stimulation. Assessment: Nara Huerta is a 49 y.o. female with persistent pain and ill- [...] use these agents due to concerns about buttermaker effects and side effects. She has less [...] Schedule Diagnoses Referral to Outpatient Referral Routine Pain In Both Lower Or dered: Occupational and Extremities 09/06/2015 Environmental Medicine documented as of this encounter Visit Diagnoses Diagnosis Pain in both lower extremities documented in this encounter Care Teams Client Architect Relationship Specialty Start Date End Date Elaine Palencia MD PCP - General 10/12/11 [address] [place] [address] documented as of this encounter
--- OUTSIDE RECORDS SUMMARY | 2022-02-24 00:15 | XMS_ITS | Encounter Summary ---
:1965 Author Organization [facility] [place] [address] Care Team Providers Name Role Phone Elaine Palencia MD Primary Care Provider Encounter Details Date Type Department Care Team Description 01/27/2016 Office Visit Occupational Medicine Rani Gutierres, Michele onic pain of lower extremity, bilateral; at [address] Work related injury [address] [place] [address] [place] [address] OCCUPATIONAL MEDICINE [place], [place] [address] Social History Tobacco Use Types Packs/Day Years Used Date Never Smoker Alcohol Use Standard Drinks/Week Comments No 0 (1 standard drink = 0.6 oz pure alcoho l) Sex Assigned at Date Recorded Not on file documented as of this encounter Last Filed Vital Signs Vital Sign Reading Time Taken Comments Blood Pressure 118/72 01/27/2016 2:29 PM EDT Pulse 79 01/27/2016 2:29 PM EDT Temperature - - Respiratory Rate - - Oxygen Saturation - - Inhaled Oxygen Concentration - - Weight - - Height - - Body Mass Index - - documented in this encounter Patient Instructions Patient InstructionsRani Gutierres MD - 01/27/2016 3:11 PM EDT [facility]: [email or web address] documented in this encounter Progress Notes Rani Gutierres MD - 01/31/2016 9:17 AM EDT [facility] OCCUPATIONAL AND ENVIRONMENTAL MEDICINE FOLLOW UP VISIT Date of Injury: April 28, 2015. Date of Intake: January 18, 2016. Employer: [email or web address]. Work Status: Out of work. 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 Ceci Tavares regarding a work injury. See intake note for case summary and medical record review. Also, please see excellent notes from Dr. Brooks in lower extremity orthopedics on 12/02/[address]rs[address] Antonio and George in Pain Medicine on 01/14/2016. Interval history: Today she reports no significant change in symptoms. She has seen Dr. Brooks in lower extremity orthopedics (past orthopedic work up with with a primarily upper extremity provider). Thorough history, exam, record review, and image review did not identify a specific orthopedic problem that would merit orthopedic intervention. She also saw Dr. Antonio in Pain Medicine with diagnosis of peripheral nerve injury or CRPS. She was offered lumbar sympathetic nerve blocks, pain cream, and CBT. She has not received the pain cream. It sounds like ketamine infusion was discussed. She is here with RICHARD Loaiza. She brings in photos of the legs after the injury with significant swelling and bruising. Current photos show profound swelling and color changes. O: Vitals: 01/27/16 1429 BP: 118/72 Pulse: 79 Ms. Huerta is alert and pleasant and in no acute distress. She is however very discouraged and mood is poor. She is a clear historian. She has extreme difficulty ambulating because of pain and feels nauseated with activity, needing to lie down on the exam table. Exam not repeated today. 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 She also now has compensatory low back pain from altered biomechanics and gait. She has had excellent orthopedics and pain medicine evaluation. Orthopedic evaluation has ruled out a specific orthopedic problem that would merit orthopedic intervention. Vascular abnormalities have been ruled out by ultrasound. Electrodiagnostic studies show mild abnormalities.Working diagnoses are peripheral nerve injury or CRPS precipitated by a contusion the right more than the left leg. We discussed treatment options in detail including sympathetic block, [place] treatment, and ketamine infusion. Barriers to [place] treatment are that she cannot travel alone and in fact she and her have never been apart. They survived the [place] war and traveled to the [place] together. Her has exhausted his leave from work although I was not able to tell the status of his FMLA. He also cares for her mother who is in a wheelchair is in her 80s and does not speak [place]. She is most enthusiastic about the pain cream and is willing to try the sympathetic block. She is not interested in ketamine infusions so we did not discuss this but I did encourage her to get more information pending i njection outcome. P: 1. Pain cream Rx printed and provided to [facility] 2. Schedule lumbar sympathetic block and Pain Medicine follow up at [facility] as this is closer to home. 3. Continue compassionate PT per Dr. Brooks 4. Initiate CBT close to home 5. Workers' Compensation form completed out of work for now. We will continue to follow once she hasimproved pain control. 6. She will follow up with me after these visits. She knows how to contact me if needs to in the meantime. Of note, BIN recommended acupuncture which I do not think has been tried. We will keep that inmind but will do one intervention at a time. 20 minutes of this 25 minute visit were spent discussing diagnosis, treatment, and work capacity using a shared decision making approach. documented in this encounter Plan of Treatment Not on filedocumented as of this encounter Visit Diagnoses Diagnosis Chronic pain of lower extremity, bilater al Work related injury Injury, other and unspecified, unspecifi ed site documented in this encounter Care Teams Snack Stewardess Relationship Specialty Start Date End Date Elaine Palencia MD PCP - General 10/12/11 [address] [place] [address] documented as of this encounter
--- OUTSIDE RECORDS SUMMARY | 2022-02-24 00:15 | XMS_ITS | Encounter Summary ---
:1965 Author Organization [facility] [address] Care Team Providers Name Role Phone Elaine Palencia MD Primary Care Provider Reason for Referral Physical Therapy (Routine) - Closed Specialty Diagnoses / Procedures Referred By Contact Refer red To Contact Physical Therapy Diagnoses Work related injury Rani Gutierres MD [facility] Flo Benítez [place] [address] Referral ID Status Reason Start Date Expiration Date Visits V isits Requested Authorized [id number] Closed Consult, 11/18/2015 05/16/2016 12 12 Test & Treat onsultation - Closed Specialty Diagnoses / Procedures Referred By Contact Refer red To Contact Pain Management Diagnoses Work related injury Rani Gutierres MD Dent, David V, [facility] [place] [address] Fax: Referral ID Status Reason Start Date Expiration Date Visits V isits Requested Authorized [id number] Closed Consult, 11/18/2015 11/17/2016 1 1 Test & Treat onsultation - Closed Specialty Diagnoses / Procedures Referred By Contact Refer red To Contact Orthopaedics Diagnoses Work related injury HuRani goddard MD Lynch, Franklin Jr., MD [facility] D R [facility]CCUPATIONAL MEDIC[facility] [place] [address] [place] [address] Fax: Referral ID Status Reason Start Date Expiration Date Visits V isits Requested Authorized [id number] Closed Consult, 11/18/2015 11/17/2016 1 1 Test & Treat Reason for Visit Occupational Medicine (Routine) - Closed Specialty Diagnoses / Procedures Referred By Contact Refer red To Contact Occupational Medicine Diagnoses Pain in both lower extremities Ceci Tavares, [facility] Medicine 4l MD [facility], [address] [place]OLOG[place] [id number] [place] [address] Referral ID Status Reason Start Date Expiration Date Visits V isits Requested Authorized [id number] Closed Consult, 09/06/2015 09/05/2016 1 1 Test & Treat Encounter Details Date Type Department Care Team Description 11/18/2015 Office Visit Occupational Medicine Rani Gutierres, Wor k related injury; at [address] Lower leg injury, left, sequela; [address] [facility] Lower leg injury, right, seq uela; [place] [address] CENTER Rib contusion, unspecified laterality, s ubsequent encounter; [phone] OCCUPATIONAL Injury of right upper arm, subsequent encounter MEDICINE [place], [place] [address] Social History Tobacco Use Types Packs/Day Years Used Date Never Smoker Alcohol Use Standard Drinks/Week Comments No 0 (1 standard drink = 0.6 oz pure alcoho l) Sex Assigned at Date Recorded Not on file documented as of this encounter Last Filed Vital Signs Vital Sign Reading Time Taken Comments Blood Pressure 115/65 11/18/2015 1:08 PM EDT Pulse 81 11/18/2015 1:08 PM EDT Temperature - - Respiratory Rate - - Oxygen Saturation - - Inhaled Oxygen Concentration - - Weight 50.8 kg (112 lb) 11/18/2015 1:08 PM EDT Height 160 cm (5' 3) 11/18/2015 1:08 PM EDT Body Mass Index 19.84 11/18/2015 1:08 PM EDT documented in this encounter Progress Notes Rani Gutierres MD - 11/22/2015 7:47 AM EDT [facility] OCCUPATIONAL [facility] ENVIRONMENTAL MEDICINE INITIAL VISIT Date of Injury: April 28, 2015. Date of Intake: January 18, 2016. Employer: [employer]. Work Status: Out of work. 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 Ceci Tavares regarding a work injury. History of Present Illness: Ms. Huerta describes the following history. She was working in her classroom trying to get something off a high shelf and standing on two crates, when the crates collapsed and she fell forcibly on the edge of the crates. She states she had an immediate bruise and a lump in her right calf. She states she did not hit her head or lose consciousness. She felt immediately nauseated. She states that a lot of people came to see if she was okay. EMT was called, and she was given IVs and pain medicine en route to [facility] ED where she was casted, given pain medications, and tetanus booster. She states x-rays showed no fracture, and she was told to elevate and ice and follow up with her PCP. She describes having a lot of pain during that time including In both left and right lower leg, right upper arm with abrasions and ecchymosis, and rib pain with difficulty breathing. She was followed conservatively by her PCP and wanted to go back to work about one week later. She states she tried about three days of work, but could not tolerate it because of the pain. Her PCP then referred her to orthopedic associate provider, Inna Osuna, at the [facility]. A trial of non weight bearing and heat and massage to the area was recommended She was given a boot, but states that she could not tolerate that. She has tried PT for about three visits and was told that she was not a good candidate for PT at that time because of the pain. She ultimately saw Dr. Abarca, upper extremity orthopedist, who suspected nerve damage and prescribed gabapentin, which she took for two to three weeks, but she states that she could not tolerate it because of altered mental status. She was then referred to Dr. Ceci Tavares in Neurology at , where EDX testing was done that were abnormal, although it was difficult for her to tolerate the study. Results showed a mild right saphenous nerve lesion and a left superficial peroneal nerve lesion that correlated with her sensory exam. Confirming there is no ongoing compression was recommended. Neuropathic pain medication was suggested as well as referral to the Pain Clinic and Occupational Medicine for assistance with return to work. She then returned to Dr. Abarca in Orthopedics who did a trial of amitriptyline 10 mg at night, which helped her sleep, and Lyrica, that resulted in similar side effects as Neurontin. She is currently on Lyrica 25 mg per day and has not been able to titrate up. She has discontinued the amitriptyline. She also tried pool therapy but was unable to tolerate this, and recently a bilateral lower extremity MRI was done as below. In addition, she has had an ultrasound that showed no clots. She also has had an BIN which she states has a mostly accurate review of her history. At this point, she feels that her general orthopedist is saying this is a neurologic issue, and her neurologist is referring her back to orthopedics, and she feels that treatment has stalled. Current Symptoms: She has pins and needles and a feeling like bugs crawling on her right heel. Her right toes burn, and she feels sensation of warm water flowing behind the right lateral malleolus. Overall, her right ankle feels sensitive. She notes ongoing swelling in the right betancourt with some discoloration and a sulcus. On the left, she notes some discoloration in the medial calf. She reports that her left foot feels asleep constantly, 24/7. She has bilateral pain from both calves to the feet. Standing and walking make it worse Nothing particularly makes it better. When she weight bears, she feels nauseated. She is having difficulty sleeping. She is having mood changes because of her functional and vocational loss and the chronic pain. Pain stays around 8 out of 10 in intensity. She does have some ongoing right elbow pain, but states she has good movement and can use her arm. There is one spot in the back of the upper arm that feels particularly painful. Current Function: She reports needing assistance with daily activities. She states she was formerly extremely active and also took care of her mother. She uses a cane sometimes, but states that it bothers her pride. 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 She states she does drive, but only short distances. She states she can stand for 30 to 45 minutes and walk for 30 to 45 minutes. She states that she cannot walk a city block at a reasonable pace without stopping. She does not report limitations on sitting. Current Treatment: Lyrica 25 mg daily. 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 She has worked there for over 15 years. She is a highly valued employee. Past Medical History: Migraine and GERD. She had a past finger surgery. Current Outpatient Prescriptions Medication Sig Dispense Refill ??? citalopram (CELEXA) 20 mg Tablet 0 ??? TRIXAICIN HP 0.075 % Cream 0 ??? omeprazole (PRILOSEC) 20 mg Capsule, Delayed Release(E.C.) ??? amlodipine (NORVASC) 5 mg tablet Take 5 mg by mouth daily. ??? ketoprofen (ORUDIS) 75 mg capsule 75M Capsule(s), PO, Twice daily PRN ??? amitriptyline (ELAVIL) 10 mg Tablet Take 1 tablet by mouth nightly. 30 tablet 3 No current facility-administered medications for this visit. Allergies: None. Social History: She does not smoke, drink alcohol, or report a history of a substance abuse . Family Medical History: Noncontributory. Review of systems: As above and otherwise negative. Physical Exam: Filed Vitals: 11/18/15 1308 BP: 115/65 Pulse: 81 MsLidia Huerta is alert and pleasant and in no acute distress. She is a clear historian. She has extreme difficulty ambulating because of pain and feels nauseated with activity, needing to lie down on the exam table. She is tender over the right triceps. She is sensitive over the lower lumbar spine with increased pain with forward flexion. An area over the medial right lower leg still has some discoloration and a small sulcus with tenderness. She also has some discoloration in the left medial calf. She remains quite tender over the lower legs. She has decreased lower extremity strength, but some of this may be from pain as well as disuse. I do not note any color changes or any allodynia. She has decreased sensation to pinprick over the lateral calf on the right as well as over the lateral and top of the right foot. Straight leg raise is negative. Medical Record Review: I have received medical records from her Nurse Bombsight Specialist, Rani Santos. Independent Medical Evaluation dated October 12, 2015, by Dr. Stan Byrne reviews the above history. This is reviewed with the patient, and she feels it is accurate. It is also consistent with the history she gave me. Of note, on exam, a hard nodule was noted about 18 cm down from the right knee in the mid portion of the tibia in the soft tissue. Impression was history of bilateral lower extremity injury and right elbow injury. Assessment was that treatment had been reasonable and medically necessary, and the symptoms were causally related to injury. There was no objective evidence of complex regional pain syndrome. She was thought not to be capable of returning to her job because she was not able to ambulate. Occupational Medicine evaluation and Pain Clinic evaluation was recommended. No surgical lesion was seen. Suggestion was to re-engage with pool therapy and for a trial of acupuncture. She was thought not to be at maximum medical improvement. ED note from [facility] dated 04/28/2015, shows chief complaint of right leg injury from fall with abrasions noted on the right upper arm and abrasion/laceration of the right mid anterior tibia with swelling ecchymosis with diagnosis of right tib-fib contusion and abrasions and negative x-rays. Wounds were cleaned, pain medicine was given, and rest, ice, elevation, and crutches were recommended. Primary care office notes dated May 03, 2015, for ER followup shows assessment of multiple contusions with plan for conservative care. She was noted to have a right lower leg hematoma and right rib pain as well as pleuritic discomfort in her right chest that had mostly resolved. Neck was noted to be stiff. Bruises were noted on both legs. She was released to return to work on May 17, 2015. PCP followup for leg and foot pain dated May 11, 2015, showed diagnoses of hematoma and plantar fasciitis. She was referred to Orthopedics. Failed irffib-yh-cepz trial was noted. Right hematoma with fluctuance and bruising was noted. Orthopedic visit with Inna Osuna N.P. on May 14, 2015. Repeat x-rays were negative for any obvious bony or joint space abnormality. Assessment was lower leg contusions and suspected medial ankle sprain on the right. All removable ankle orthoses caused increased pain. Decreased right weightbearing with gentle range of motion and heat was recommended with Tylenol and NSAIDs for pain. She was taken out of work. Left lower extremity ultrasound dated May 25, 2015 was normal. Followup orthopedic visit dated June 09, 2015. Right lower extremity hematoma and fading left lower leg ecchymosis was noted as well as a healing open area. Diffuse ankle joint pain with tenderness of the peroneal tendon without instability was noted. She was also tender to resisted ankle dorsiflexion and ankle eversion. Assessment was strain of the tendon of the right foot and ankle and contusion of the left leg. MRI results were reviewed. There was thought not to be any structural tears. There was a small joint effusion and some swelling around the peroneus longus tendon. Activity as tolerated was recommended with orthopedics physician followup. Initial outpatient PT evaluation by Elio East dated June 21, 2015, assesses deep bone bruise and overlying contusion of the right lower leg suffered by a traumatic event. He also noted symptoms that seemed to be stemming from overuse of the posterior tibialis tendon on the left because of impaired gait. PT two times a week for six weeks was recommended. E-stim and manual therapy were not helpful because of nausea and pain increase in the bilateral extremities, and she could only tolerate up to 15 minutes of pool therapy due to pain. She was noted to present as exhausted and uncomfortable. Orthopedic followup dated July 01, 2015, with Dr. Jude Abarca noted some mild decreased sensation in the region of the superficial peroneal nerve on the left. Assessment was leg contusion with partial peroneal nerve injury. She was prescribed Neurontin and pool therapy was recommended. Neurology evaluation dated September 16, 2015, with EMG studies as discussed above in narrative. Orthopedic followup dated September 13, 2015, noted worsening symptoms. Assessment was possible complex regional pain syndrome with no overt objective signs, but symptoms correlate. It was recommended that she see a lower extremity orthopedist and continue care at [facility]. Occupational Medicine consult was also recommended as well as Elavil. PCP notes dated November 10, 2015, shows a followup visit for neuropathy pain. Assessment was bilateral leg pain with plan to do a full MRI of the lower legs from ankles to the knees to rule out any persistent swelling or nerve compression. Lumbar back pain was also noted, most likely related to her poor posture to abnormal gait. MRI of the bilateral lower extremities dated November 17, 2015, shows mild edema in the head of the right fibula that may represent a bone bruise, and mild soft-tissue edema in the right lower leg anterolaterally with no focal fluid collection to suggest an abscess. On the left, there was no evidence of occult fracture and was read as a negative MRI of the left lower leg. Left ankle MRI dated June 03, 2015. Impression included peroneus longus tendon with low-grade tendinopathy and posterior border fraying without high-grade tear. Prominent vascularity in the angle of Gissane thought to be a normal anatomic variant, and a tiny erosion along the lateral aspect of anterior superior calcaneal process without fracture or disruption of the biceps ligament. Small tibiotalar and posterior subtalar joint effusions were noted. 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 She also now has compensatory low back pain from altered biomechanics and gait. She has been seen by Orthopedics and Neurology. Her treating orthopedist is an upper extremity orthopedist. Orthopedic assessment includes soft-tissue injury, contusion of the left leg, partial peroneal nerve injury, possible CRPS, right peroneal tendon strain and suspected right medial ankle sprain. Neurology assessment shows findings consistent with a right saphenous nerve lesion and a left superficial peroneal nerve lesion that correlates with sensory exam. PCP assessment includes multiple contusions, hematoma, plantar fasciitis, neuropathy, compensatory low back pain from poor posture and abnormal gait. PT assessment includes deep bone bruise and overlying contusion of the right lower leg from a traumatic event and symptoms stemming from overuse of the posterior tibialis tendon on the left because of impaired gait. Conservative treatment including physical therapy, aquatherapy, medication management, and orthoses have been unsuccessful to date. Vascular abnormalities have been ruled out by ultrasound. Anatomic nerve compression has been ruled out by MRI, although MRI does show some right low-grade peroneus longus tendon tendinopathy. Electrodiagnostic studies show mild abnormalities Bilaterally as detailed above. Treatment recommendations that have been suggested, but not done, include by orthopedics: because Dr. Abarca states he is an upper extremity orthopedist, he did not feel equipped to further evaluation this lower extremity injury. He also recommended Occupational Medicine evaluation and Elavil. Independent Medical Exam by Dr. Byrne recommended Occupational Medicine evaluation and Pain Medicine evaluation. Her , CORRINE, and her WCNCM attended this visit. We discussed treatment options in detail. First, reassurance was provided. I do not think she has CRPS, but I do think she has chronic neuropathic pain. She also likely has some pain from soft-tissue injury and possible ligament strain. Most concerning to her is the nausea she gets whenever she is active. She desires to be more active, but cannot tolerate the pain and nausea. Plan: First, I am referring her lower extremity orthopedist, Dr. Judson Beck, for him to provide lower extremity orthopedic expert input. She has been evaluated by an upper extremity orthopedist to date. In addition, I am referring her to Dr. Olu Antonio in the Pain Clinic for further diagnosis, evaluation, and treatment recommendations and for help with pain management. In the meantime, she is not able to titrate up on Lyrica to get the neuropathic pain medication effect. She did have improved sleep with Elavil. She will discontinue the Lyrica and restart the amitriptyline 10 mg two to three hours before bedtime. She can double the dose after one week if needed. We will restart physical therapy with Elio East, given that she has not seen him since she has had the rule-out studies. This will be to help form a home exercise plan and to start mobilizing to avoid any further compensatory injuries or changes. Worker's Compensation form completed out of work for now. We will continue to follow once she has improved pain control. She will follow up with me after these visits. She knows how to contact me if needs to in the meantime. Thank you for this interesting consult. 45 minutes of this 60 minute visit were spent discussing diagnosis, treatment, and work capacity using a shared decision making approach. documented in this encounter Plan of Treatment Scheduled Referrals Name Type Priority Associated Order Schedule Diagnoses Referral to Outpatient Referral Routine Work related injury O rdered: Orthopaedics 11/18/2015 Referral to Pain Outpatient Referral Routine Work related inju ry Ordered: Clinic 11/18/2015 Referral to Physical Outpatient Referral Routine Work related injury Ordered: Therapy 11/18/2015 documented as of this encounter Visit Diagnoses Diagnosis Work related injury Injury, other and unspecified, unspecifi ed site Lower leg injury, left, sequela Lower leg injury, right, sequela Rib contusion, unspecified laterality, s ubsequent encounter Injury of right upper arm, subsequent en counter documented in this encounter Care Teams Ux Researcher Relationship Specialty Start Date End Date Elaine Palencia MD PCP - General 10/12/11 [address] [place] [address] documented as of this encounter
--- OUTSIDE RECORDS SUMMARY | 2022-02-24 00:15 | XMS_ITS | Encounter Summary ---
:1965 Author Organization [facility] [place] [address] Care Team Providers Name Role Phone Elaine Palencia MD Primary Care Provider Reason for Visit Reason Comments Leg Pain bilat workers comp Foot Pain bilat workers comp Consultation - Closed Specialty Diagnoses / Procedures Referred By Contact Refer red To Contact Orthopaedics Diagnoses Work related injury Rani Gutierres MD Lynch, Franklin Jr., MD [facility] DEREJE Moon [place] [address] Fax: Referral ID Status Reason Start Date Expiration Date Visits V isits Requested Authorized [id number] Closed Consult, 11/18/2015 11/17/2016 1 1 Test & Treat Encounter Details Date Type Department Care Team Description 12/02/2015 Office Visit Orthopaedics at [facility] Stan Brooks Contusion of leg, unspecifie d laterality, sequela; [facility] MD Rafiq Chronic [place] [address] CENTER [phone] ORTHOPAEDIC SURGERY [place] [address] Social History Tobacco Use Types Packs/Day Years Used Date Never Smoker Alcohol Use Standard Drinks/Week Comments No 0 (1 standard drink = 0.6 oz pure alcoho l) Sex Assigned at Date Recorded Not on file documented as of this encounter Last Filed Vital Signs Vital Sign Reading Time Taken Comments Blood Pressure 116/75 12/02/2015 9:08 AM EDT Pulse 86 12/02/2015 9:08 AM EDT Temperature - - Respiratory Rate - - Oxygen Saturation - - Inhaled Oxygen Concentration - - Weight 51.3 kg (113 lb) 12/02/2015 9:08 AM EDT pt repor yossi Height 160 cm (5' 3) 12/02/2015 9:08 AM EDT pt report ed Body Mass Index 20.02 12/02/2015 9:08 AM EDT documented in this encounter Progress Notes Stan Brooks - 12/02/2015 9:53 AM EDT Ms. Huerta is a 49-year-old female that we are seeing at the request of Dr. Palencia with a chief complaint of bilateral leg pain from the knees to the toes. 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 She had interestingly been seen at this institution by Dr. Gonzales one of our rheumatologists, and at that time, she had some hand complaints but also volunteered some discomfort in her lower back on the left as well as some hip pain. That evaluation did not demonstrate any significant or worsened disease, although the term fibromyalgia syndrome was utilized by Dr. Gonzales to describe the consequences of that encounter. At that time, however, (the patient really did not remember that encounter or what brought her to have some spine films), but there was no complaint of any pain in the her legs associated with the low back complaints. The patient then on the April was at work, at school, and was climbing up first on a chair and then on 2 stools to grab some paper, and in the process, she had lost her balance and came down very hard striking the ground and primarily on her shins bilaterally the right a little bit more than the left. She also struck her right elbow. The skin was bruised and may have been lacerated to some degree over both of those sites. While the patient did not describe any chest pain at that time, she said several days later she did have some discomfort in the right side of her chest with some difficulty breathing, but those symptoms apparently had dissipated. She described the pain as being over the ida. She had severe pain. Eventually, she had to be brought to an emergency room where it was the initial inclination of the emergency room staff that she had fractures. So, they put her in a splint on the right side, but once an x-ray was taken showing no fracture, the splint was removed, and she was sent home. Basically, that was the beginning of this odyssey of discomfort which has now evolved into severe pain as noted above from the knee down to the toes. The right more than the left usually but at times now the left could be even more than the right. She also is having increasing back discomfort because her gait now is so limited now that this woman is really fairly sedentary, stays home, and has no longer participated at work in the activities of daily living associated with a mother of 2 and a . She describes on the left side 24/7 numbness in the left foot, pain in the calf and in the betancourt. On the right side, she feels things at times crawling on her leg and as if fluid was flowing on her leg. I neglected to mention that she did not have a laceration that required any type of suturing, and apparently, this was no more than a bruise and a superficial skin irritation, but there was certainly no deep, deep wounds associated with the fall that she had. Over the past several months, she has had physical therapy, aqua therapy, has been put on several medications, has seen neurology with even nerve conduction studies being done but no significant or hard evidence of nerve dysfunction has been demonstrated, and if there was an asymmetry, the left side perhaps the nerve conduction studies were slightly depressed compared to the right side. The patient finds that again she has these symptoms all the time but the worst thing that she can do is to stand and walk and if she sits with her knees flexed. Elevation helps to some degree, but the discomfort is a part time phenomenon. At no time does she get any discomfort in her back going into her legs. When she is very uncomfortable and this happens very often, she will get sick to her stomach. The patient's past medical history is noted above. She has only had some surgery on 1 finger. She has had 2 full term pregnancies. She has no allergies to medications. She does not have a history compatible with VTE. On her physical exam, a pleasant and cooperative lady in no acute distress who came in walking very slowly with a cane on her right side being held by her on the left. She could not get out of a chair without the use of her arms and then when she gets up she walks painfully across the room with her right ankle and foot complex basically kept in a neutral position while she does have a more functional range of motion of the left knee and the left foot and ankle. She could rise on her toes to some degree on the left side not on the right. She cannot rise on her heels on the right side but can on the left. She could forward flex to within 30 cm to the floor with knees and arms extended. This produced increasing back pain, and when I extended her spine to maybe neutral or 5 degrees of hyperextension, albeit to the right or to the left, this only produced back pain but at no time did I produce any leg pain. When I had her sitting at the edge of the table, deep tendon reflexes at the knee and at the ankle were +2 to 3 but equal. Babinski were down. She demonstrated no sciatic tension sign. The calf musculature was soft on both sides. There was a prominence over the anterior musculature on the right side just above where the contusion apparently occurred, but even that is soft, but the amount of pain that she had just on gentle palpation was much greater than 1 would expect on the basis of this physical exam. There was no significant atrophy. No erythema. There was no hyperhidrosis, and the patient did not demonstrate any pallor or rubor on physical exam nor did she mention any earlier when I was obtaining the history. Cold and warm intolerance or aggravation of the symptoms was not described either. She appears to have perfectly normal sensation over the both foot and ankle complexes, and her distal pulses are easily palpated posterior tib and dorsalis pedis. Her knee range of motions are normal, but she is very reluctant to extend the right knee as quickly as on the left because of diffuse discomfort just distal to the knee all the way down into the calf and betancourt. She was also somewhat reluctant sitting at the edge of the table to flex her hip against resistance, but I think it was limited by pain. I really could not detect a true weakness, and again, she has no thigh atrophy that I could appreciate. I have reviewed the x-rays from 2012 of her spine which are fairly benign. I have looked at the tibia films that were obtained last year with her injury, and I have looked at her MRI as well as the nerve conduction, and at this point, I am not identifying any significant musculoskeletal trauma or any unequivocal neurogenic trauma. 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 So, it is a chronic pain syndrome precipitated by initially a contusion the right more than the left leg. I cannot identify a specific orthopedic problem that would merit orthopedic intervention, but I think that a Pain Clinic referral to manage this evolving chronic pain syndrome along with compassionate physical therapy is certainly warranted. cc: Elaine Palencia MD documented in this encounter Plan of Treatment Not on filedocumented as of this encounter Visit Diagnoses Diagnosis Contusion of leg, unspecified laterality , sequela Chronic pain due to injury Chronic pain due to trauma documented in this encounter Care Teams Distribution Spec Relationship Specialty Start Date End Date Elaine Palencia MD PCP - General 10/12/11 [address] [place] [address] documented as of this encounter
--- OUTSIDE RECORDS SUMMARY | 2022-02-24 00:15 | XMS_ITS | Encounter Summary ---
:1965 Author Organization [facility] [place] [address] Care Team Providers Name Role Phone Elaine Palencia MD Primary Care Provider Encounter Details Date Type Department Care Team Description 11/17/2015 Hospital Encounter Radiology Library at [facility], [place] [address] Social History Tobacco Use Types Packs/Day [...] mg Tablet mouth. citalopram (CELEXA) 20 mg 40 mg. 0 11/10/2015 01/27/2016 Tablet TRIXAICIN HP 0.075 % Cream 0 6 07/20/2016 LYRICA 25 mg Capsule 0 09/23/201511/01 HYDROcodone-acetaminophen 0 07/30/2015 11/18/2015 (NORCO) 5-325 mg TabletIndications: Pain in both lower extremities meloxicam (MOBIC) 7.5 mg 0 06/10/2015 11/18/2015 TabletIndications: Pain in both lower extremities omeprazole (PRILOSEC) 20 0 03/14/2015 01/27/2016 mg [...] Associated Diagnosis Comme nts FILM LIBRARY Routine 11/17/2015 12:00 AM Pain Results for this STORAGE ONLY MR EDT procedure ar e in LOWER EXTREMITY the results section. documented in this encounter Results Film Library- Storage only MR Lower Extremity (11/17/2015 12:00 AM EDT) Specimen (Source) Anatomical Location Collection Method / Collectio n Time Received Time / Laterality Volume Narrative [facility] - 11/18/2015 10:52 AM EDT See PACS for result report. Dr Srinivasan [facility] FILM LIBRARY ORDERABLES Performing Organization Address City/State/ZIP Code Phon e Number [place], [place] documented in this encounter Visit Diagnoses Diagnosis Pain Generalized pain documented in this encounter Care Teams Dog Bather Relationship Specialty Start Date End Date Elaine Palencia MD PCP - General 10/12/11 [address] [place] [address] documented as of this encounter
--- OUTSIDE RECORDS SUMMARY | 2022-02-24 00:15 | XMS_ITS | Encounter Summary ---
:1965 Author Organization [facility] [place] [address] Care Team Providers Name Role Phone Elaine Palencia MD Primary Care Provider Encounter Details Date Type Department Care Team Description 09/08/2015 External Results Neurology at [facility] Ceci Tavares, [facility] [place] [address] [facility] [phone] NEUROLOGY DEPT [place], [place] [address] (Wo rk) Social History Tobacco [...] Associated Diagnosis Comme nts EMG SCAN Routine 09/06/2015 documented in this encounter Results Scan Doc: EMG (09/06/2015) Narrative This result has an attachment that is no t available. Ceci Tavares MD MEDIA MGR SCAN EXT ORDR/RSLT documented in this encounter Visit Diagnoses Not on filedocumented in this encounter Care Teams Cath Lab Radiology Technician Relationship Specialty Start Date End Date Elaine Palencia MD PCP - General 10/12/11 [address] [place] [address] documented as of this encounter
--- OUTSIDE RECORDS SUMMARY | 2022-02-24 00:15 | XMS_ITS | Encounter Summary ---
:1965 [place] [address] Care Team Providers Name Role Phone Elaine Palencia MD Primary Care Provider Encounter Details Date Type Department Care Team Description 07/20/2016 Office Visit Occupational Medicine Rani Gutierres, Nirav brady related injury; at [address] Chronic pain of lower extremity, bilater al [address] [place] [address] [place] [address] OCCUPATIONAL MEDICINE [place], [place] [address] Social History Tobacco Use Types Packs/Day Years Used Date Never Smoker Alcohol Use Standard Drinks/Week Comments No 0 (1 standard drink = 0.6 oz pure alcoho l) Sex Assigned at Date Recorded Not on file documented as of this encounter Last Filed Vital Signs Vital Sign Reading Time Taken Comments Blood Pressure 107/70 07/20/2016 1:33 PM EST Pulse 75 07/20/2016 1:33 PM EST Temperature - - Respiratory Rate - - Oxygen Saturation - - Inhaled Oxygen Concentration - - Weight - - Height - - Body Mass Index - - documented in this encounter Progress Notes Rani Gutierres MD - 07/20/2016 12:30 PM EST [facility] OCCUPATIONAL AND ENVIRONMENTAL MEDICINE FOLLOW UP VISIT Date of Injury: April 28, 2015. Date of Intake: January 18, 2016. Employer: [employer]. Work Status: Out of work. 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 See intake note for case summary and medical record review. 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 Interval history: I am seeing Ms. Huerta [facility] Since last visit, she has seen Dr. Gamaliel Kim in follow up in Pain Medicine at [facility]. Note reviewed and scanned into the system. Her [facility] attended this visit. Question was brought up as to whether she had a tibialis anterior muscle tear to account for the persistent mass on her right betancourt. Question of left lumbar radiculopathy was also brought up as a possible diagnosis to explain some of her neuropathic leg Symptoms. Of note, she has had a lower extremity MRI but not any lumbar work up or imaging. In addition, she continued the dry needling trial but this was not beneficial and was discontinued. It also flared her symptoms. She has since had several visits of acupuncture with some increase symptoms in the left leg but overall is tolerating it better than the dry needling and she thinks it might be helping. She continues to work with her counselor locally for CBT for chronic pain and for trauma recovery with benefit. She does, however, continue to replay a movie of the injury in her head over and over. She has been approved for a trial of scrambler therapy for chronic neuropathic pain on August 14. The logistics around that, including travel and caregiving at home, have been arranged. She also reports that the topical pain cream takes the edge off of her pain. Her nurse case coordinator has found a compounded pharmacy in [place] where she can fill the prescription for about a quarter of the cook. O: Vitals: 07/20/16 1333 BP: 107/70 Pulse: 75 She has a very antalgic gait with pain with ambulation, but appears more comfortable than at last visit. She shows no exaggerated pain behaviors. On exam, she is sensitive over the lower lumbar spine in the midline. She has increased pain in her back with forward flexion. Overall, she has decreased lower extremity strength. She has decreased sensation to pinprick in the lateral right calf. There is an ongoing mass that does not appear significantly changed from last visit and that is tender on the right betancourt. She continues to have an area of discoloration in the medial left calf. Straight leg raise is negative bilaterally. She has no clonus. Jr is negative. I do not note any significant allodynia today. She also points out that she has some lumps under the skin where she scraped her arm in the fall, in the right triceps area. To palpation, there is scattered small, round, tender nodules in the proximal triceps area on the right. 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 She also has compensatory low back pain from altered biomechanics and gait. She has had excellent orthopedics and pain medicine evaluations. Orthopedic evaluation has ruled out a specific orthopedic problem that would merit orthopedic intervention. Vascular abnormalities have been ruled out by ultrasound. Electrodiagnostic studies show mild neurological abnormalities. Working diagnoses are peripheral nerve injury or early CRPS precipitated by a contusion the right more than the left leg. Likely anterior tibialis muscle tear. Primary presenting finding is chronic neuropathic pain ?? P: 1. I agree with lumbar MRI to rule out a possible lumbar etiology contributing to her symptoms that could help explain delayed recovery. I am adding a lumbar flexion /extension x-ray to assess dynamic stability. 2. She will continue with cognitive behavioral therapy. I will contact her therapist to determine if she would like us to do a short course of eidetic memory reprocessing for the recurrent movie of the injury that she is running repeatedly in her head. This was discussed with Dr. Dl Gandhi who is the expert on this treatment for injured workers today. He provided some guidelines of how to incorporate EMR into other trauma recovery therapies. We will discuss this with her therapist. 3. In the meantime, she will continue acupuncture for a total of up to six visits with additional visits based on objective functional gains. 4. She will follow up with pain medicine after her lumbar imaging by phone or appointment as needed. 5. She will continue the pain cream, given that she is getting some pain relief. 6. I suspect that the right arm nodules are calcifications from the injury. I will ask Dr. Kim to evaluate. 7. Follow up with [facility] for routine women's health screenings. 8. Scrambler therapy for chronic neuropathic pain as scheduled. I would like to review the imaging prior to scrambler therapy treatment. 9. She will need transportation to appointments. Follow up after ST treatment or sooner if needed. She is not at [facility]. WC form completed out of work given intractable pain and inability to ambulate. ADDENDUM: 08/01/2016 I reviewed her lumbar MRI and flexion/extension x-rays that were uploaded in the system. Of note, the official radiology reports are not available. She does have some foraminal stenosis and a lateral disc at left L4-5. She also has some listhesis with extension at the same level. Otherwise, her alignment looks good on lateral extension/flexion. She does have some scoliosis evident on AP view. I reviewed the images and discussed them with Dr. Gamaliel Kim today. Although the left L4-5 disc could explain some of her left-sided symptoms, we do not think that all her symptoms can be explained by a lumbar etiology. In particular, the right-sided lumbar nerve roots look good. Moreover, she is unlikely to be able to tolerate lumbar injections or be a surgical candidate given her current clinical presentation. In discussion with Dr. Kim, we would like her to proceed with scrambler therapy for her overall chronic neuropathic pain. If she has residual symptoms after that treatment, particularly in the left L4-5 distribution, we can revisit a spine consult. I will see her after her scrambler therapy and I will stay in touch during the treatment. In addition, both she, her case coordinator, and Dr. Campos know how to reach me if needed during the treatment. The entirety of this 25 minute visit were spent discussing interval treatment and next steps in detail as well as diagnosis, treatment, and work capacity using a shared decision making approach. documented in this encounter Plan of Treatment Not on filedocumented as of this encounter Visit Diagnoses Diagnosis Work related injury Injury, other and unspecified, unspecifi ed site Chronic pain of lower extremity, bilater al documented in this encounter Care Teams Test Boring Crew Chief Relationship Specialty Start Date End Date Elaine Palencia MD PCP - General 10/12/11 [address] [place] [address] documented as of this encounter
--- OUTSIDE RECORDS SUMMARY | 2022-02-24 00:15 | XMS_ITS | Encounter Summary ---
:1965 Author Organization [facility] [place] [address] Care Team Providers Name Role Phone Elaine Palencia MD Primary Care Provider Encounter Details Date Type Department Care Team Description 11/18/2015 Telephone Care Management Alana Mcclellan, [place] [address] Social History Tobacco Use Types Packs/Day Years Used Date Never Smoker Alcohol Use Standard Drinks/Week Comments No 0 (1 standard drink = 0.6 oz pure alcoho l) Sex Assigned at Date Recorded Not on file documented as of this encounter Progress Notes Alana Mcclellan, LAY OUT WORKER - 11/18/2015 5:47 PM EDT [facility] FOLLOW UP CONTINUING CARE MANAGEMENT SOCIAL WORK CLAIM # [id number] DOI: INSURANCE COMAPANY: [employer] CONTACT:Laborer Judi Cao [facility] Rani Santos PHONE: [phone] FAX: [phone] Meal Packer: Bere Farrell S/O Nara Huerta was seen in [facility] with Dr Gutierres. Please see provider note for ov details. Pt was accompanied by her and her [facility]. Pt has not been able to tolerated suggested PT andpool therapy. She is frustrated that she has not yet gotten an explaination for her continued disability. She notes she continues to try to accomplish tasks but finds if she is on her feet the pain increases greatly and she become nauseated. A/ Pt endorses feeling depressed and finds herself short tempered. Her PCP is following her for these symptoms. P/ Patient is happy to keep upcoming appointments. She and or her NCM will call this CCM for assistance as needed. All referral information was given to the NCM and she will present to the property claims adjuster today and advocate for services. documented in this encounter Plan of Treatment Not on filedocumented as of this encounter Visit Diagnoses Not on filedocumented in this encounter Care Teams Cash Manager Relationship Specialty Start Date End Date Elaine Palencia MD PCP - General 10/12/[address] [place] [address] documented as of this encounter
--- OUTSIDE RECORDS SUMMARY | 2022-02-24 00:15 | XMS_ITS | Encounter Summary ---
:1965 [place] [address] Care Team Providers Name Role Phone Elaine Palencia MD Primary Care Provider Encounter Details Date Type Department Care Team Description 03/30/2016 Office Visit Occupational Medicine Rani Gutierres Wor k related injury; at [address] Chronic pain of lower extremity, bilater al [address] [place] [address] [place] [address] OCCUPATIONAL MEDICINE [place], [place] [address] Social History Tobacco Use Types Packs/Day Years Used Date Never Smoker Alcohol Use Standard Drinks/Week Comments No 0 (1 standard drink = 0.6 oz pure alcoho l) Sex Assigned at Date Recorded Not on file documented as of this encounter Last Filed Vital Signs Vital Sign Reading Time Taken Comments Blood Pressure 100/69 03/30/2016 10:20 AM EDT Pulse 76 03/30/2016 10:20 AM EDT Temperature - - Respiratory Rate - - Oxygen Saturation - - Inhaled Oxygen Concentration - - Weight - - Height - - Body Mass Index - - documented in this encounter Progress Notes Rani Gutierres MD - 03/30/2016 9:30 AM EDT [facility] OCCUPATIONAL AND ENVIRONMENTAL MEDICINE FOLLOW UP VISIT Date of Injury: April 28, 2015. Date of Intake: January 18, 2016. Employer: [employer]. Work Status: Out of work. 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 See intake note for case summary and medical record review. Also, please see excellent notes from Dr. Brooks in lower extremity orthopedics on 12/02/2015 [address]rs[address] Antonio and George in Pain Medicine on 01/14/2016. Thorough orthopedics evaluation did not identify a specific orthopedic problem that would merit orthopedic intervention, working diagnosis is peripheral nerve injuryor CRPS Interval history: Today she reports no significant change in symptoms. She followed up with Pain Medicine to discuss lumbar sympathetic nerve blocks. She reports having had an unsatisfying visit, whichwe discussed today in detail. Her [facility] had been unable to attend the visit. Afterward she felt that she wanted to give up. She does not feel her questions have been answered including would the injection be likely to work almost a year post injury and what are the risks. Pain cream helps take the edge off. She needs a refill. She is doing counseling but not CBT as the provider near her has a 2 to3 month waiting list. She wonders about acupuncture. Of note, BIN recommended acupuncture which has n ot been tried. Also she needs help with transportation to visits. O: Vitals: 03/30/16 1020 BP: 100/69 Pulse: 76 Ms. Huerta is alert and pleasant and in no acute distress. She is very discouraged. She has no exaggerated pain behaviors. She is clear and coherent. Speech is focused. Ambulation appears mildly improved since last visit, although she continues to walk slowly and with pain. Exam not done as today was primarily a counseling visit. 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 I discussed the Pain Medicine visit with Dr. Antonio by phone. There appears tohave been a miscommunication, likely because the [facility] was not able to attend and facilitate the visit. Patient has been compliant and reliable. There is no evidence of malingering or symptoms amplification. P: 1. Dr. Antonio would be happy to see her back, and we would make sure either the [facility] CCM or NCM attends the visit. Alternatively, we can see if a different pain medicine provider could see her. Patient prefers to see another provider. I will discuss with Pain Medicine to facilitate. Revisit patient questions about lumbar sympathetic block, ideally at [facility] as this is closer to home. 2. Pain cream refilled needed given benefit and improved ambulation on exam today. Will notify Pain Medicine. 3. Continue compassionate PT per Dr. Brooks 4. Up to six visits of acupuncture. This was an BIN recommendation. Additional visits based on functional gains per evidence based treatment guidelines. 5. Initiate CBT close to home 6. Workers' Compensation form completed out of work for now. We will continue to follow once she hasimproved pain control. She will need transportation to appointments. 7. She will follow up with me after these visits. She knows how to contact me if needs to in the meantime. Additional treatment options per Pain Medicine include ketamine infusion and spinal cord stimulator trial. Depending on response to acupuncture and decision about injection, consideration could be given trial of non-invasive Scrambler Therapy for chronic neuropathic pain. Travel is a barrier. Will notify patient if we obtain a device locally. 30 minutes of this 40 minute visit were spent discussing interval treatment and next steps in detailas well as diagnosis, treatment, and work capacity using a shared decision making approach. Rani Gutierres MD - 03/30/2016 9:[address] Antonio, fine for Adila to see another provider at [facility] per below. Pt wants to try acupuncture and counseling first. Will review this at next visit. . That would be fine with me ?? Thanks! ? Ike ? ----- Message ----- ? From: Rani Gutierres MD ? Sent: 04/15/2016 ?? 8:15 AM ? To: Olu Antonio V, DO ? Please see OEM note attached. Ike - thank for talking to me aobut this case. Given the miscommunication at the visit as we identified by phone, would you be okay if she saw [facility] would you prefer to see her back first with her WC NCM present? Thx, KH Rani Gutierres MD, PhD, MPH, FACOEM Hand Rigger Section of Occupational and Environmental Medicine Department of Medicine [facility] documented in this encounter Plan of Treatment Not on filedocumented as of this encounter Visit Diagnoses Diagnosis Work related injury Injury, other and unspecified, unspecifi ed site Chronic pain of lower extremity, bilater al documented in this encounter Care Teams Chairman And Chief Executive Officer Relationship Specialty Start Date End Date Elaine Palencia MD PCP - General 10/12/11 [address] [place] [address] documented as of this encounter
--- OUTSIDE RECORDS SUMMARY | 2022-02-24 00:15 | XMS_ITS | Encounter Summary ---
:1965 Author Organization [facility] [place] [address] Care Team Providers Name Role Phone Elaine Palencia MD Primary Care Provider Encounter Details Date Type Department Care Team Description 09/22/2016 Hospital Encounter Ultrasound at [facility] Andres Gutierres, Work related injury [facility] [address] OCCUPATIONAL [phone] [place] [address] Social History Tobacco Use Types Packs/Day Years [...] Name Priority Date/Time Associated Diagnosis Comme nts US EXTREMITY NON Routine 09/22/2016 3:33 PM Work related injur y Results for this VASCULAR LIMITED EST procedure a re in ANATOMIC SPECIFIC the result s RIGHT section. documented in this encounter Results US Extremity Non Vascular Limited Anatomic Specific Right (09/22/2016 3:33 PM EST) Anatomical Region Laterality Modality Ultrasound Specimen (Source) Anatomical Collection Method Collection Time Re ceived Time Location / / Volume Laterality 09/22/2016 3:27 PM EST Impressions 09/22/2016 3:51 PM EST ??Ultrasound Dictation: In the right upper arm, where the patie nt indicates small soft tissue lumps, there are echogenic, avascular foci atilio y suggestive of small lipomas. ? Juan knutson MD Electronically Signed Final Report ?? 03:50 pm Narrative 09/22/2016 3:51 PM EST Ultrasound Extremity ? (Signed Final 09/22/2016 03:50 pm) Report - Right PATIENT INFO: ID #: ? [id number] ?: ??[birth year] (50 yrs) Name: ? NARA HUERTA ? Visit Date: 09/22/2016 03:27 pm PERFORMED BY: Performed By: ? Kristen Leung RDMS Attending: ?Leodan NAIR, Jesus Reese. Referred By: ?ANDRES GUTIERRES MD Location: ? [place] SERVICE(S) PROVIDED: ??UEXTLMTR - Extremity Limited - Right - [id number] ? [id number] INDICATIONS: ??Small round hard tender >1 cm ??subcutaneous nodules over right akbar ps ??area s/p fall with shearing ??injury/abrasion/contusion - seem to b e ??increasing ? calcified hematoma. Plea se ??help with diagnosis. WINNIE Singh --------- FINDINGS: --------- Title: ? Ultrasound Extremity Re port - Right Findings: ?Right tricep area scanne d over pt indicated area ?of lump. 2.1x1.1x0. 8cm soft tissue area of ?increased echogenic ity. ??Smaller echogenic area ?also noted measurin g 0.6x0.4x0.2cm. Procedure Note Juan Alcocer MD - 09/22/2016Format ting of this note might be different from the original. Ultrasound Extremity (Signed Final 09/04 03:50 pm) Report - Right PATIENT INFO: ID #: [id number] : 63 (50 y rs) Name: NARA HUERTA Visit Date: 09/04 03:27 pm PERFORMED BY: Performed By: Katherine Leung RDMS Attending: Juan Alcocer MD Referred By: ANDRES GUTIERRES MD Location: [place] SERVICE(S) PROVIDED: UEXTLMTR - Extremity Limited - Right - [id number] INDICATIONS: Small round hard tender >1 cm subcutaneous nodules over right triceps area s/p fall with shearing injury/abrasion/contusion - seem to be increasing ? calcified hematoma. Please help with diagnosis. WINNIE Singh --------- FINDINGS: --------- Title: Ultrasound Extremity Report - Ri ght Findings: Right tricep area scanned ove r pt indicated area of lump. 2.1x1.1x0.8cm soft tissue area of increased echogenicity. Smaller echogen ic area also noted measuring 0.6x0.4x0.2cm. IMPRESSION Ultrasound Dictation: In the right upper arm, where the patie nt indicates small soft tissue lumps, there are echogenic, avascular foci atilio y suggestive of small lipomas. Juan Alcocer MD Electronically Signed Final Report 09/22 03:50 pm Andres Gutierres MD IMG US GEN ORDERABLES documented in this encounter Visit Diagnoses Diagnosis Work related injury Injury, other and unspecified, unspecifi ed site documented in this encounter Care Teams Supervisor Pyrotechnic Loading Relationship Specialty Start Date End Date Elaine Palencia MD PCP - General 10/12/11 [address] [place] [address] documented as of this encounter
--- OUTSIDE RECORDS SUMMARY | 2022-02-24 00:15 | XMS_ITS | Encounter Summary ---
:1965 Author Organization [facility] [place] [address] Care Team Providers Name Role Phone Elaine Palencia MD Primary Care Provider Reason for Visit Reason Comments Skin Check Encounter Details Date Type Department Care Team Description 09/04/2013 Office Visit Dermatology at [facility], Chronic paronychia (Primary Dx); Royce NAIR Other seborrheic keratosis [address] [facility] B DERMATOLOGY [place], [place] [id number] [phone] Social History Tobacco Use Types Packs/Day Years Used Date Never Smoker Sex Assigned at Date Recorded Not on file documented as of this encounter Progress Notes Joaquin Chi MD - 09/04/2013 2:15 PM EST Problem: Nail changes. Nara follows up and is now 47. She is here with her , David. She is referred by Dr. Palencia for nail changes of almost a year's duration starting on her right thumb. She also gets areas of erythema and discoloration around the proximal nail folds and along the lateral nail folds. 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 She also still has a problem with a sunburnt early springtime rash on her neck and chest. She continues to take ketoprofen on a fairly irregular basis and taking it does not appear to be associated with flares of the neck dermatitis, and her migraines are becoming less and less frequent, fortunately. Physical examination today reveals a pleasant 47-year-old woman who has onycholysis of the distal two-thirds of left, one-third of the right thumb nail plate. She has areas of erythema and swelling, today relatively quiescent, along the lateral and proximal nail fold areas of several of her fingernails. Also, several of the nail plates show onychodystrophy. This is no doubt related to flares of paronychia. She has a small, 2 mm, seborrheic keratosis on the right lateral eyebrow. She asked what can be done to treat skin for photoaging. Assessment and Plan: 1. Paronychia. a. Recommend use of an alcohol-based cleanser for hands. b. Explained that water and water contact are predisposing her to this nail problem. Keep the hands dryer, keep moisture away from underneath the nails or the nail folds, and the fungal/yeast will not produce paronychia. c. Prescription for thymol 3% in ethyl alcohol will be faxed to the [facility] in [place] and patient will apply this on a q. day b.i.d. basis p.r.n. for flares. d. Reassured patient that nail changes are not in concert with any connective tissue disease. 2. Seborrheic keratosis, right lateral eyebrow. a. Patient reassured. b. No treatment necessary. 3. Photoaging. a. Patient is blonde, blue eyed, fair skinned, and has fair hair, but has no significant actinic damage today. She really does not have any significant lentigos. b. Recommend the most important thing for her would be to use sunscreen and I recommended Neutrogena sunscreen with Helioplex, SPF 45 to 50, on a daily basis in the summer months. She currently does not use any sunscreen for her face. c. If neck rash flares again this spring, the patient will make a return appointment to see me directly and I will likely want to do a punch biopsy to confirm a possible photo drug reaction, perhaps related to her Celexa. Return to clinic here p.r.n. for new lesions/concerns. COPY: Elaine Palencia M.D. documented in this encounter Plan of Treatment Not on filedocumented as of this encounter Visit Diagnoses Diagnosis Chronic paronychia - Primary Cellulitis and abscess of unspecified di git Other seborrheic keratosis documented in this encounter Care Teams Shuttle Bus Driver Relationship Specialty Start Date End Date Elaine Palencia MD PCP - General 10/12/11 [address] [place] [address] documented as of this encounter
--- OUTSIDE RECORDS SUMMARY | 2022-02-24 00:15 | XMS_ITS | Encounter Summary ---
:1965 [place] [address] Care Team Providers Name Role Phone Elaine Palencia MD Primary Care Provider Reason for Referral Psychiatric (Routine) - Closed Specialty Diagnoses / Procedures Referred By Contact Refer red To Contact Psychiatry Diagnoses Chronic pain due to trauma Olu Antonio DO Bick, Evan C, PhD [facility] [place] [address] Fax: Referral ID Status Reason Start Date Expiration Date Visits V isits Requested Authorized [id number] Closed Consult, 02/10/2016 02/09/2017 12 12 Test & Treat Encounter Details Date Type Department Care Team Description 02/10/2016 Orders Only Pain Management at Olu Antonio DO Chronic pain due to [facility] trauma [facility] [place] [address] [place] [address] [phone] Social History Tobacco Use Types Packs/Day Years Used Date Never Smoker Alcohol Use Standard Drinks/Week Comments No 0 (1 standard drink = 0.6 oz pure alcoho l) Sex Assigned at Date Recorded Not on file documented as of this encounter Plan of Treatment Scheduled Referrals Name Type Priority Associated Order Schedule Diagnoses Referral to Outpatient Referral Routine Chronic pain due to O rdered: Psychiatry trauma 02/10/2016 documented as of this encounter Visit Diagnoses Diagnosis Chronic pain due to trauma documented in this encounter Care Teams Pants Presser Relationship Specialty Start Date End Date Elaine Palencia MD PCP - General 10/12/11 [address] [place] [address] documented as of this encounter
--- OUTSIDE RECORDS SUMMARY | 2022-02-24 00:15 | XMS_ITS | Encounter Summary ---
:1965 Author Organization [facility] [place] [address] Care Team Providers Name Role Phone Elaine Palencia MD Primary Care Provider Encounter Details Date Type Department Care Team Description 12/02/2015 Telephone Care Management McclellanAlana curry, [place] [address] Social History Tobacco Use Types Packs/Day Years Used Date Never Smoker Alcohol Use Standard Drinks/Week Comments No 0 (1 standard drink = 0.6 oz pure alcoho l) Sex Assigned at Date Recorded Not on file documented as of this encounter Miscellaneous Notes Telephone Encounter - McclellanAlana, INSPECTION SUPERVISOR - 12/02/2015 9:51 AM EDT [facility] FOLLOW UP CONTINUING CARE MANAGEMENT SOCIAL WORK CLAIM # [id number] DOI: ??04/28/15 INSURANCE COMAPANY: [employer] CONTACT:Slitter Processed Film Judi Cao [facility] Rani Santos PHONE: [phone] FAX: [phone] Collection Systems Worker: Bere Farrell S/O Nara Huerta was seen in Ortho with Dr Brooks. Please see provider note for ov details. Pt was accompanied by her . Pt did have all of her questions answered. Pt and were hoping that there would be some greater clarity that this ov would provide. She does have appointment to begin PT in her area and has an appointment with the Pain clinic on 12/20/[address] Antonio. A/ Pt reports increasing frustration and discouragement at her ongoing functional limitations. P/ Patient will keep upcomming appointments and will contact this CCM as needed. CCM contacted [facility] with an update on today's visit. December 19 documented in this encounter Plan of Treatment Not on filedocumented as of this encounter Visit Diagnoses Not on filedocumented in this encounter Care Teams Pari Mutuel Ticket Seller Relationship Specialty Start Date End Date Elaine Palencia MD PCP - General 10/12/11 [address] [place] [address] documented as of this encounter
--- OUTSIDE RECORDS SUMMARY | 2022-02-24 00:15 | XMS_ITS | Encounter Summary ---
:1965 Author Organization [facility] [address] Care Team Providers Name Role Phone Elaine Palencia MD Primary Care Provider Encounter Details Date Type Department Care Team Description 12/19/2015 Telephone Pain Management at Juan Mcgee DO [facility] [place] [address] PAIN CLINIC [phone] [place], [place] [address] (Wo rk) Social History Tobacco Use Types Packs/Day Years Used Date Never Smoker Alcohol Use Standard Drinks/Week Comments No 0 (1 standard drink = 0.6 oz pure alcoho l) Sex Assigned at Date Recorded Not on file documented as of this encounter Miscellaneous Notes Telephone Encounter - Juan Hansen DO - 12/19/2015 8:30 PM EDT Patient called to see if she can reschedule her appt tomorrow morning. Her ride is unable to drive her in the morning. She wonders if she can be seen later tomorrow. I told her I will forward her message to the schedulers but she can also call in the morning to attempt to reschedule. documented in this encounter Plan of Treatment Not on filedocumented as of this encounter Visit Diagnoses Not on filedocumented in this encounter Care Teams Integrated Campaign Manager Relationship Specialty Start Date End Date Elaine Palencia MD PCP - General 10/12/11 [address] [place] [address] documented as of this encounter
--- OUTSIDE RECORDS SUMMARY | 2022-02-24 00:15 | XMS_ITS | Encounter Summary ---
:1965 Author Organization [facility] [place] [address] Care Team Providers Name Role Phone Elaine Palencia MD Primary Care Provider Encounter Details Date Type Department Care Team Description 05/18/2016 Telephone Care Management Alana Mcclellan, [place] [address] Social History Tobacco Use Types Packs/Day Years Used Date Never Smoker Alcohol Use Standard Drinks/Week Comments No 0 (1 standard drink = 0.6 oz pure alcoho l) Sex Assigned at Date Recorded Not on file documented as of this encounter Miscellaneous Notes Telephone Encounter - Alana Mcclellan, ASPHALT WORKER - 05/18/2016 6:31 PM EDT [facility] FOLLOW UP CONTINUING CARE MANAGEMENT SOCIAL WORK ? CLAIM # [id number] DOI: ??04/28/15 INSURANCE COMAPANY: [employer] CONTACT:Lalo Cao NCM: Shayla Balderas Phone: Paint Maker: Bere Farrell CBT therapist: Tiffanie Nielson Acupuncture: Caity Serrano (no fax) S/O Nara Huerta was seen in [facility] with Dr Gutierres. Please see provider note for ov details. Shewas accompanied by her and her NCM. She is working hard in therapy and is improving her coping skill. She has just started dry needling and after a course of this she will try acupuncture. She is willing to consider ST if her son can go with her. A/ continues to experience a great deal of distress. She has a very supportive team and family. P/ CCM will be available to all parties. Prior auth for ST will be faxed to contract processor. documented in this encounter Plan of Treatment Not on filedocumented as of this encounter Visit Diagnoses Not on filedocumented in this encounter Care Teams Other Sports Coach Or Instructor Relationship Specialty Start Date End Date Elaine Palencia MD PCP - General 10/12/11 [address] [place] [address] documented as of this encounter
--- OUTSIDE RECORDS SUMMARY | 2022-02-24 00:15 | XMS_ITS | Encounter Summary ---
:1965 Author Organization [facility] [place] [address] Care Team Providers Name Role Phone Elaine Palencia MD Primary Care Provider Encounter Details Date Type Department Care Team Description 09/07/2016 Telephone Care Management Alana Mcclellan, LABORATORY [place] [address] Social History Tobacco Use Types Packs/Day Years Used Date Never Smoker Alcohol Use Standard Drinks/Week Comments No 0 (1 standard drink = 0.6 oz pure alcoho l) Sex Assigned at Date Recorded Not on file documented as of this encounter Progress Notes Alana Mcclellan, LABORATORY CHEMICAL ASSISTANT - 09/07/2016 3:29 PM EST [employer] FOLLOW UP CONTINUING CARE MANAGEMENT SOCIAL WORK ? CLAIM # [id number] DOI: ??04/28/15 INSURANCE COMAPANY: [employer] CONTACT:Lalo Cao NCM: Shayla Balderas Phone: Fiscal Accounting Clerk: Bere Farrell CBT therapist: Tiffanie Nielson Acupuncture: Caity Serrano (no fax) S/O Nara Huerta was seen in [facility] with Dr Gutierres. Please see provider note for ov details. Pt was accompanied by her and her wc NCM. Pt did have a trial of [facility] which sadly she did not respond to. She brings notes from these visit and they will be scanned in to her EMR. She continues to see her therapist every week. This CCM will contact her therapist and see if a trial of EMR trauma theatre may be possible depending on the focus of her work with pt. [facility] provided records and info to CCM as requested. A/ Pt continues to experience great distress and sense of discouragement at her lack of recovery andwith not having clear diagnosis/ explanation for some of her physical symptoms. P/ CCM placed call to pt's psychotherapist to discuss the possibility of using EMR procedure with pt. If this is possible, [facility] will have pt scheduled for the end of September. 09/07/16 1500 Workers' Compensation Type of Visit Follow-up Is your claim open and active? Yes Work Status OOW Treating Provider Managing WC Yes Managing Provider Name Dr Gutierres Receiving Wage Replacement Yes Do you have a Workers' Comp Contact? Yes Workers' Compensation Contact Name Shayla Hendrickson Are there bills not covered by Workers' Compensation? No Is there an expeller worker for Workers' Compensation Yes Fiscal Accounting Clerk Name Gilma Cummingsner Was there an BIN? Yes Previous WC claims through the DOL? No MMI? No documented in this encounter Plan of Treatment Not on filedocumented as of this encounter Visit Diagnoses Not on filedocumented in this encounter Care Teams General Clerk Relationship Specialty Start Date End Date Elaine Palencia MD PCP - General 10/12/11 [address] [place] [address] documented as of this encounter
--- OUTSIDE RECORDS SUMMARY | 2022-02-24 00:15 | XMS_ITS | Encounter Summary ---
:1965 [place] [address] Care Team Providers Name Role Phone Elaine Palencia MD Primary Care Provider Encounter Details Date Type Department Care Team Description 07/21/2016 Hospital Encounter Radiology Library at Hugh Gutierres MD [facility] [place] [address] MEDICINE [phone] [place] [address] (Wo rk) Social History Tobacco Use Types [...] 0 011 04/05/2017 200 mg Tablet mouth. DULoxetine (CYMBALTA) 30 take 1 capsule by 0 05/0508/01/2016 mg Capsule, Delayed mouth twice a day Release(E.C.) triamcinolone (KENALOG) Reported on 0 06/15/2016 03/12/2017 [...] Associated Diagnosis Comme nts FILM LIBRARY Routine 07/21/2016 12:00 AM Pain Results for this STORAGE ONLY DX EST procedure ar e in SPINE the results section. documented in this encounter Results Film Library- Storage Only DX Spine (07/21/2016 12:00 AM EST) Specimen (Source) Anatomical Location Collection Method / Collectio n Time Received Time / Laterality Volume Narrative [facility] - 07/25/2016 12:35 PM EST This exam is for storage only and is aut o-finalizing. Rani Gutierres MD IMG FILM LIBRARY ORDERABLES Performing Organization Address City/State/ZIP Code Phon e Number [place], [place] documented in this encounter Visit Diagnoses Diagnosis Pain Generalized pain documented in this encounter Care Teams Medical Record Retrieval Specialist Relationship Specialty Start Date End Date Elaine Palencia MD PCP - General 10/12/11 [address] [place] [address] documented as of this encounter
--- OUTSIDE RECORDS SUMMARY | 2022-02-24 00:15 | XMS_ITS | Encounter Summary ---
:1965 Author Organization [facility] [place] [address] Care Team Providers Name Role Phone Elaine Palencia MD Primary Care Provider Encounter Details Date Type Department Care Team Description 05/09/2016 Telephone Care Management Alana Mcclellan, [place] [address] Social History Tobacco Use Types Packs/Day Years Used Date Never Smoker Alcohol Use Standard Drinks/Week Comments No 0 (1 standard drink = 0.6 oz pure alcoho l) Sex Assigned at Date Recorded Not on file documented as of this encounter Miscellaneous Notes Telephone Encounter - Alana Mcclellan, PHOTO INTERN - 05/09/2016 11:04 AM EDT [employer] [employer] [facility] FOLLOW UP CONTINUING CARE MANAGEMENT SOCIAL WORK ? CLAIM # [id number] DOI: ??04/28/15 INSURANCE COMAPANY: [employer] CONTACT:Lalo Cao NCM: Shayla Balderas Phone: Workers' Compensation Commissioner: Bere Farrell CBT therapist: Tiffanie Nielson Acupuncture: Caity @ [employer] Serrano (no fax) Call to pt to informe her that has approved 6 acupuncture treatments. Pt notes that she saw Dr Vidal for BIN and he recommends: acupuncture, dry needling and injections to address her pain syndrome. Pt will bring a copy of the BIN to her [facility] appointment. Pt was given number to call to set up acupuncture. She provided contact info for new NCM. CCM called NCM and provided update including follow up wit Dr Michaels. [facility] faxed prior auth to NCM and mailed copy to pt. documented in this encounter Plan of Treatment Not on filedocumented as of this encounter Visit Diagnoses Not on filedocumented in this encounter Care Teams Farmer Vegetable Relationship Specialty Start Date End Date Elaine Palencia MD PCP - General 10/12/11 [address] [place] [address] documented as of this encounter
--- OUTSIDE RECORDS SUMMARY | 2022-02-24 00:15 | XMS_ITS | Encounter Summary ---
:1965 Author Organization [facility] [place] [address] Care Team Providers Name Role Phone Sandhya Marcano APRN Primary Care Provider Encounter Details Date Type Department Care Team Description 05/24/2011 Abstract Dermatology An Molina, RN [address] [place], [place] [address] Social History Tobacco Use Types Packs/Day Years Used Date Never Assessed Sex Assigned at Date Recorded Not on file documented as of this encounter Plan of Treatment Not on filedocumented as of this encounter Visit Diagnoses Not on filedocumented in this encounter Care Teams Rn Oncology Clinical Relationship Specialty Start Date End Date Sandhya Marcano APRN PCP - General 04/03/11 10/11/11 [address] [address] [facility] [place] [address] documented as of this encounter
--- OUTSIDE RECORDS SUMMARY | 2022-02-24 00:15 | XMS_ITS | Encounter Summary ---
:1965 Author Organization [facility] [place] [address] Care Team Providers Name Role Phone Elaine Palencia MD Primary Care Provider Reason for Referral Diagnostic Test (Routine) - Closed Specialty Diagnoses / Procedures Referred By Contact Refer red To Contact Radiology Diagnoses Work related injury Rani Osman MD [facility] Rad Mri Procedures MRI Lower Extremity [place] [address] [place] [address] Referral ID Status Reason Start Date Expiration Date Visits V isits Requested Authorized [id number] Closed Specialty 09/18/2016 12/17/2016 1 1 Service Requested onsultation (Routine) - Closed Specialty Diagnoses / Procedures Referred By Contact Refer red To Contact Plastic Surgery Diagnoses Work related injury Rani Osman MD [facility] Plastic Surg [facility] [place] [address] [place] [address] Referral ID Status Reason Start Date Expiration Date Visits V isits Requested Authorized [id number] Closed Consult, 09/08/2016 09/08/2017 1 1 Test & Treat Encounter Details Date Type Department Care Team Description 09/07/2016 Office Visit Occupational Medicine Rani Osman, Nirav k related injury; at [address] Chronic pain of lower extremity, bilater al; [address] [place] [address] [place] [address] OCCUPATIONAL MEDICINE [place], [place] [address] Social History Tobacco Use Types Packs/Day Years Used Date Never Smoker Alcohol Use Standard Drinks/Week Comments No 0 (1 standard drink = 0.6 oz pure alcoho l) Sex Assigned at Date Recorded Not on file documented as of this encounter Last Filed Vital Signs Vital Sign Reading Time Taken Comments Blood Pressure 121/78 09/07/2016 1:35 PM EST Pulse 72 09/07/2016 1:35 PM EST Temperature - - Respiratory Rate - - Oxygen Saturation - - Inhaled Oxygen Concentration - - Weight - - Height - - Body Mass Index - - documented in this encounter Progress Notes Rani Osman MD - 09/07/2016 1:30 PM EST [facility] OCCUPATIONAL AND ENVIRONMENTAL MEDICINE FOLLOW UP VISIT Date of Injury: April 28, 2015. Date of Intake: January 18, 2016. Employer: [employer]. Work Status: Out of work. 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 See intake note for case summary and medical record review. 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 Interval history: Since last visit, Shana has had a trial of Scrambler therapy. Notes from Dr. Campos were received, reviewed and sent to be scanned into the system. Briefly, he was unable to reduce or eliminate pain after 5 sessions. It was difficult for them to find an area where she responded positively using different electrode positioning and different types of electrodes. She does describe that when the electrodes were placed, instead of the normal tingling sensation, she would feel her usual pain and the nausea that goes along with it. Eventually, by the end of the five days, she could feel some tingling in the area of the electrodes, but it did not translate into pain relief. Recommendation was for brain MRI to help rule out any demyelinating diseases causing her symptoms. In the meantime, she continues to do counseling with Lyudmila Nielson with benefit. Symptom-jordan, she continues to have bilateral leg pain as well as painful subcutaneous nodules over her right triceps and she feels as if they are growing and increasing in number. She also has throbbing burning pain in the entire lower leg below the knee on the left side, with numbness and tingling in the entire left foot and ankle, and in the posterior calf. Initially with the injury, the numbness and tingling was only in the foot; this spread to the ankle after a trial of dry needling, and up into the posterior calf after acupuncture. On the right, she continues to have a visible mass on the anterior mid shaft of the betancourt in the area of her previous injury that is swollen, tender, and discolored. In this leg, She feels a feeling of water dripping down the leg. She continues to have intermittent swelling and color changes as well as hypersensitivity over both lower legs. She feels quite despondent that the scrambler therapy was not effective. O: Vitals: 09/07/16 1335 BP: 121/78 Pulse: 72 She is alert and pleasant, in no acute distress. She demonstrates no exaggerated pain behaviors. Speech is clear and coherent. Affect is down, but overall brighter than when we initially started seeing her. She has discrete hard, small, round, tender subcutaneous nodules over the right biceps. The bilateral lower legs are sensitive to light touch. The mass is still prominent on her right anterior betancourt. She has less swelling and color changes in the feet today than in past visits, but she states this does not reflect a change since scrambler therapy but rather the usual waxing and waning of these symptoms. She has diminished strength in the ankles and decreased ankle range of motion. 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 She also has compensatory low back pain from altered biomechanics and gait. She has had orthopedics and pain medicine evaluations. Vascular abnormalities have been ruled out by ultrasound. Electrodiagnostic studies show mild neurological abnormalities. Working diagnoses are peripheral nerve injury or early CRPS precipitated by a contusion the right more than the left leg, and likely anterior tibialis muscle tear. Primary presenting finding is chronic neuropathic pain but diagnosis for the persistent lower leg deformity and subcutaneous nodules in the right triceps area has not been definitively established. Regarding her lack of response to scrambler therapy, this could be for several reasons. One could be because her particular non-pain signal is not being generated by the device, which happens in a small percentage of cases. Another possibility is alternate diagnosis. Although she is presenting with chronic neuropathic pain, there is a possibility of an underlying diagnosis that we have yet to determine, and given her objective exam findings of persistent subcutaneous swelling in the right betancourt and nodules in the arm, the possibility of an additional musculoskeletal diagnosis is possible. In addition, she does have left-sided L4-L5 disk (see spine review below), which does not completely explain all her symptoms, but if there is ongoing nerve compression, this could explain some of her persistent pain. Another possibility is that her mental health diagnosis interfered with the scrambler therapy. In particular, ST treatment relies on the central nervous system relearning the non-pain signal. She is running a recurrent movie of the work trauma; this is a limbic-based issue, which is the same area of the brain that processes pain, it could be that this area is not capable of relearning the non-pain feedback signal because it is stuck recurrently signaling the traumatic Memory. In terms of the lumbar imaging, I reviewed this with spine orthopedics to make sure we are not missing a contribution from her lumbar spine, as it stands to reason that if she fell hard enough to have the peripheral contusions and injuries that she had, that there could also have been a low back injury. Of note, the official radiology reports are not available. 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 She also has some listhesis with extension at the same level. Otherwise, her alignment looks good on lateral extension/flexion. She does have some scoliosis evident on AP view. Overall, it is possible she is having some neurogenic claudication. She does have a positive Montano on exam, but no clonus. On further questioning, she does not note any neck pain currently or with the injury, although a cord injury should also be considered. P: 1. At this point, to follow through on these possibilities, first, I would like to speak with Dr. Lg Campos to get his impressions on the ST treatment prior to ordering a brain MRI. 2. Next, I plan to speak with her therapist about whether we can initiate a trial of eidetic memory reprocessing, which is a short-course, limbic-based therapy in the setting of running a recurrent movie of a trauma. We can do this at our office, but we spoke with Dr. Dl Gupta, who is the national expert on this treatment and has successfully treated over 300 patients with occupational trauma. He notes it is important once the EMR therapy has been completed that the patient does not run the movie forward again. Given that certain trauma treatments involve exposure or running the movie forward, we need to make sure that this is not part of the treatment with her current therapist after we do the EMR protocol. 3. In addition, her right lower leg MRI is an outside MRI that has not been read by our musculoskeletal radiologist I would like to discuss the images with Dr. Tejas Mendez to make sure that the images are sufficient quality and cuts to be able to make sure that we are not missing anything causing the persistent swelling in her leg. In addition, I would like his thoughts on how to workup the nodules in the area of her arm injury. 4. If she has residual symptoms after the above plan, we can revisit a spine consult. 5. Although the MRI images have been uploaded to the system, the MRI report has not been uploaded yet, so we will also make sure that has been uploaded. ?? 6. She will continue the pain cream, given that she is getting some pain relief. 7. Follow up with Gamaliel Kim in Pain Medicine after above work up. 8. Additional consideration could be given to repeat electrodiagnostic studies and Neurology re-evaluation. 9. She will need transportation to appointments. Follow up after I have discussed the above with her providers or sooner if needed. She is not at I. WC form completed out of work given intractable pain and inability to ambulate. The entirety of this 40 minute visit were spent discussing interval treatment and next steps in detail as well as diagnosis, treatment, and work capacity using a shared decision making approach. ADDENDUM I spoke to Lyudmila Nielson on 09/08/2016. She states that Shana is doing well with thought processing for her depression and positive resourcing, and that she is now able to go to a more positive place when her pain flares, which helps with her distress around the pain. However, she expresses that the EMDR treatment has not been as successful, perhaps in part because Dr. Nielson is relatively new to this treatment modality. We discussed EMR and Dr. Nielson would like us to proceed. She understands that once the EMR treatment has been completed, and if successful, that her therapy can no longer involve running the movie forward. She plans to focus her therapy during this time on thoughts, processing and resourcing, which will work well while we do the EMR. We will update Dr. Nielson after we initiate therapy. We will plan on up to 3 treatments in the office here. If she does not respond given that we are newly trained in this treatment, I would like her to be evaluated by Dl Gupta in Occupational Psychology for his further expertise. ADDENDUM I also spoke with Dr. Tejas Mendez on 09/08/2016 and reviewed her lower leg MRI. He noted that there is abnormal subcutaneous tissue in the area of the swelling that looks consistent with a sheering injury. He stated that oblique injuries can result in sheering between the fat and fascial layers and can result in a fluid collection or Gibson-Ravin lesion. At this point, she does not have a discrete fluid collection, but there is definitely an abnormality in the subcutaneous fat. Alternately, he stated that these types of oblique injuries can result in a fascial defect and that muscle can herniate through the fascia. This is can be seen better with active flexion and extension of the ankle on exam. A third finding is that there is patchy marrow signal changes in the ankle. He states this is very nonspecific, but can be seen in CRPS. He recommends reimaging the lower leg with more focus on the lesion area. Tbe current study is quite broad, which compromises the resolution in the area of focal swelling. Reimaging will focus in on the area and increase the resolution. He also wonders, given that on my exam today, the mass is more prominent, if more fluid is collecting and we might see a progression from the last study with more of a discreet fluid collection. ??? Per discussion with Dr. Mendez, orders were written for focal lower leg MRI, focusing on the anterior mid shaft of the betancourt in the area of the previous injury with concern of a subcutaneous collection. Another approach may be to do an ultrasound as well. In terms of the nodules over the right triceps injury area, he recommended a diagnostic ultrasound, as well as speaking with Dermatology about a possible evaluation and biopsy. I spoke to Dermatology addictions counselor on 09/08/2016, Dr. Elio Galeano, he felt that without external epidermal skin findings, that it would be difficult for them to make a definitive diagnosis, although they would be happy to see her to guide imaging or possible biopsy decision. His other recommendation was to talk to Plastic Surgery. I then talked to Dr. Perez, the plastic surgeon on-call on 09/08/2016, who suggested the possibility of calcified hematoma. He recommended a diagnostic ultrasound as well and a Plastic Surgery evaluation for further diagnosis and possible biopsy. ??? Orders for ultrasound and plastic surgery consult were placed today as well. Rani Osman MD - 09/07/2016 1:30 PM EST From Pain Medicine: She can always come in for f/u appt.. Her L4-5 looks like it could be a factor. Will defer to you. Low risk procedure in any event. Plan: Revisit L4-5 JAVIER after ortho follow up and completion of EMR therapy. Rani Osman MD, PhD, MPH, FACOEM Licensed Social Worker Section of Occupational and Environmental Medicine Department of Medicine [facility] [employer] [facility] documented in this encounter Plan of Treatment Scheduled Referrals Name Type Priority Associated Diagnoses Order S chedule Referral to Outpatient Referral Routine Work related injury O rdered: Plastic Surgery 09/08/2016 documented as of this encounter Results MRI Lower Extremity Non [...] EXTREMITY NON JOINT WO CONTRAST CLINICAL HISTORY: ATTKrystle Mendez: Ple [...] NON JAGUAR NT WO CONTRAST CLINICAL HISTORY: ISADORA Mendez: Ple [...] No mass. No Gibson Ravin lesion. Rani Osman MD IMG MRI ORDERABLES US Extremity Non Vascular Limited Anatomic Specific [...] - Right PATIENT INFO: ID #: ? [id number] ?: ??[birth year] (50 yrs) Name: ? SHANA DUFF ? Visit Date: 09/22/2016 03:27 pm PERFORMED BY: Performed By: ? Kristen Leung RDMS Attending: ?Leodan NAIR, Jesus Reese. Referred By: ?RANI OSMAN MD Location: ? [place] SERVICE(S) PROVIDED: ??UEXTLMTR - Extremity Limited - Right - [id number] ? [id number] INDICATIONS: ??Small round hard tender >1 cm [...] Report - Right PATIENT INFO: ID #: [id number] : [birth year] (50 y rs) Name: SHANA DUFF Visit Date: 09/04 03:27 pm PERFORMED BY: Performed By: Katherine Leung RDMS Attending: Juan Alcocer MD Referred By: RANI OSMAN MD Location: [place] SERVICE(S) PROVIDED: UEXTLMTR - Extremity Limited - Right - [id number] INDICATIONS: Small round hard tender >1 cm [...] Electronically Signed Final Report 09/22 03:50 pm Rani Osman MD IMG US GEN ORDERABLES documented in this encounter Visit Diagnoses Diagnosis Work related injury Injury, other and unspecified, unspecifi ed site Chronic pain of lower extremity, bilater al Subcutaneous nodules Localized superficial swelling, mass, or lump Work related injury Injury, other and unspecified, unspecifi ed site Work related injury Injury, other and unspecified, unspecifi ed site documented in this encounter Care Teams Benefits Coordinator Relationship Specialty Start Date End Date Elaine Palencia MD PCP - General 10/12/11 [address] [place] [address] documented as of this encounter
--- OUTSIDE RECORDS SUMMARY | 2022-02-24 00:15 | XMS_ITS | Encounter Summary ---
:1965 Author Organization [facility] [place] [address] Care Team Providers Name Role Phone Elaine Palencia MD Primary Care Provider Encounter Details Date Type Department Care Team Description 07/27/2015 Telephone [place] [facility] [place]ina Dwyer, [facility] [place] [address] [facility] [phone] ORTHOPAEDIC SURG [place], [place] [address] (Wo rk) Social History Tobacco Use Types Packs/Day Years Used Date Never Smoker Sex Assigned at Date Recorded Not on file documented as of this encounter Miscellaneous Notes Telephone Encounter - Ernestina Dwyer, MEDICAL CSR - 07/27/2015 8:54 AM EST Called pt concerning referral: right peroneal nerve pain and bilateral knee to calf pain. 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 She was taken to the local ED where she was evaluated and treated - no fractures were seen. Since that time she has had moderate to severe pain that has prevented her from working. She describes the pain as a burning sensationon the top of her toes on her right leg and some pain on her left. The pain is from the knees to thefeet. She never feels any back pain and rarely feels any pain in her thigh. Her mobility is slow anddifficult because of the pain. She identifies a numb area on her right betancourt. She is frustrated that she has not been able to work and that her pain has not been controlled. She has tried neurontin which just made things worse - the side effects were awful. She thinks she needs to see a nerve doctor. States that she has already seen an orthopedic physician and is not sure what else they could do. But I will see them if you think that is the right way to go. I just want to find out what is wrong and what can be done to help me. Plan: Will call referring physician, Dr Albert, and ask about a different referral if possible, or get an explanation for yet another Orthopedic evaluation. She will contact us if needed. documented in this encounter Plan of Treatment Not on filedocumented as of this encounter Visit Diagnoses Not on filedocumented in this encounter Care Teams Vessel Scrapper Relationship Specialty Start Date End Date Elaine Palencia MD PCP - General 10/12/11 [address] [place] [address] documented as of this encounter
--- OUTSIDE RECORDS SUMMARY | 2022-02-24 00:15 | XMS_ITS | Encounter Summary ---
:1965 Author Organization [place] [address] Care Team Providers Name Role Phone Elaine Palencia MD Primary Care Provider Reason for Referral Consultation (Routine) - Closed Specialty Diagnoses / Procedures Referred By Contact Refer red To Contact Pain Management Diagnoses Work related injury Rani Gutierres MD D'Amato, Stephen J, MD [facility] [address] R [address], [place] [address] OCCUPATIONAL MEDICIN [place], [place] [id number] [place] [address] Referral ID Status Reason Start Date Expiration Date Visits V isits Requested Authorized [id number] Closed Consult, 05/18/2016 11/14/2016 1 1 Test & Treat Encounter Details Date Type Department Care Team Description 05/18/2016 Office Visit Occupational Medicine Rani Gutierres, Wor k related injury; at [address] Chronic pain of lower extremity, gerald al [address] [place] [address] CENTER [phone] OCCUPATIONAL MEDICINE [place], [place] [address] Social History Tobacco Use Types Packs/Day Years Used Date Never Smoker Alcohol Use Standard Drinks/Week Comments No 0 (1 standard drink = 0.6 oz pure alcoho l) Sex Assigned at Date Recorded Not on file documented as of this encounter Progress Notes Rani Gutierres MD - 05/18/2016 1:30 PM EDT [facility] OCCUPATIONAL AND ENVIRONMENTAL MEDICINE FOLLOW UP VISIT Date of Injury: April 28, 2015. Date of Intake: January 18, 2016. Employer: [employer]. Work Status: Out of work. 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 Huerta in followup with her new NCM. Since last visit, she has had an BIN with Dr. Byrne dated 04/28/2106, a copy of which is provided today. She has connected with a counselor for CBT and EMDR. She returned to PT and had another trial of pool therapy, which was not successful, but they did dry needling. She did notice some increased tingling above the knee with that treatment, but would like to continue. There is an sound designer who has been identified near her, Dora Amato, but there may be some issues with billing. A question of whether the mass on her calf represents hypertrophic ossification was also brought up. Otherwise, she reports no new symptoms. She endorses running a recurrent movie in her head of the injury event. O: Exam is not repeated today. She has a very antalgic gait with pain with ambulation and lies on the exam table during the visit. She continues to have a hard nodule about 18 cm down from the right knee. She shows no exaggerated pain behaviors. BIN report by Dr. Byrne assesses that treatment has been reasonable and medically necessary and that her symptoms are related to the injury of record. He agrees that her symptoms do not satisfy the criteria for complex regional pain syndrome. He does feel that acupuncture and dry needling would be beneficial. He does agree with weaning the opiates but does agree with continuing the compounded cream, given that there is benefit. Use of antidepressant is also thought to be due to her injury. Discussion of nerve cord stimulator is premature. He would consider a ganglion block to see if this gives benefit, both diagnostically and therapeutically. She is thought not to be at [facility], given that there is treatment available. He strongly encourages continuing cognitive behavioral therapy. 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 P: 1. We will do an x-ray of the leg to rule out heterotropic ossification in the area of the mass, which was also noted by Dr. Byrne. 2. She will continue counseling with EMDR. We are providing a med list to her counselor. We will also review EMR with her counselor to see if that might be of benefit given that she is running a recurrent movie in her head of the injury event. 3. She will continue dry needling at PT. Once that is completed and if it is not effective, she can pursue a trial of acupuncture, up to six visits, with additional visits based on objective functional gains. 4. I am referring her back to the [facility]. I confirmed with Dr. Antonio that it is fine for her to see a different provider. She will discuss stellate ganglion Block. 5. Continue pain cream which is beneficial. 6. Given her ongoing chronic neuropathic pain, I do feel that she is an excellent candidate for scrambler therapy and her nurse telephonic nurse case manager is going to help facilitate this. 7. WC form completed out of work for now. We will continue to follow. She will need transportation to appointments. She will follow up with me in 3 to 4 weeks, or sooner if needed. The entirety of this 25 minute visit were spent discussing interval treatment and next steps in detail as well as diagnosis, treatment, and work capacity using a shared decision making approach. documented in this encounter Plan of Treatment Scheduled Referrals Name Type Priority Associated Diagnoses Order S chedule Referral to Pain Outpatient Referral Routine Work related inju ry Ordered: Clinic 05/18/2016 documented as of this encounter Visit Diagnoses Diagnosis Work related injury Injury, other and unspecified, unspecifi ed site Chronic pain of lower extremity, bilater al documented in this encounter Care Teams Machine Cage Maker Relationship Specialty Start Date End Date Elaine Palencia MD PCP - General 10/12/11 [address] [place] [address] documented as of this encounter
--- OUTSIDE RECORDS SUMMARY | 2022-02-24 00:15 | XMS_ITS | Encounter Summary ---
:1965 Author Organization [facility] [place] [address] Care Team Providers Name Role Phone Elaine Palencia MD Primary Care Provider Encounter Details Date Type Department Care Team Description 03/30/2016 Telephone Care Management Alana Mcclellan, [place] [address] Social History Tobacco Use Types Packs/Day Years Used Date Never Smoker Alcohol Use Standard Drinks/Week Comments No 0 (1 standard drink = 0.6 oz pure alcoho l) Sex Assigned at Date Recorded Not on file documented as of this encounter Miscellaneous Notes Telephone Encounter - Alana Mcclellan, SILVERING DEPARTMENT SUPERVISOR - 03/30/2016 6:12 PM EDT [facility] FOLLOW UP CONTINUING CARE MANAGEMENT SOCIAL WORK ? CLAIM # [id number] DOI: ??04/28/15 INSURANCE COMAPANY: [employer] CONTACT:Lalo Cao [facility] Rani Santos PHONE: [phone] FAX: [phone] Store Deli Manager: Bere Farrell S/O Nara Huerta was seen in [facility] with Dr Gutierres. Please see provider note for ov details. Shewas accompanied by her . Pt continues to have sever pain and functional limitations. He is interested in trying acupuncture. She is not interested in injections at this time or a SCS. She is in counseling and will continue. A/Pt struggling with her disability. P/CCm will update NCM on today's visit and will fax referral for acupuncture. documented in this encounter Plan of Treatment Not on filedocumented as of this encounter Visit Diagnoses Not on filedocumented in this encounter Care Teams Staff Engineer Relationship Specialty Start Date End Date Elaine Palencia MD PCP - General 10/12/[address] [facility] [place] [address] documented as of this encounter
--- OUTSIDE RECORDS SUMMARY | 2022-02-24 00:15 | XMS_ITS | Encounter Summary ---
:1965 [place] [address] Care Team Providers Name Role Phone Elaine Palencia MD Primary Care Provider Encounter Details Date Type Department Care Team Description 08/10/2016 Notes Only Occupational Medicine at Rani Gutierres MD [facility] Flo callahan [place] [address] [place] [address] [phone] (Wo rk) Social History Tobacco Use Types Packs/Day Years Used Date Never Smoker Alcohol Use Standard Drinks/Week Comments No 0 (1 standard drink = 0.6 oz pure alcoho l) Sex Assigned at Date Recorded Not on file documented as of this encounter Progress Notes Rani Gutierres MD - 08/10/2016 5:18 PM EST Per [facility] CCM: Radiology reports are under Scan Docs. Rani Gutierres MD, PhD, MPH, FACOEM Traffic Maintenance Supervisor Section of Occupational and Environmental Medicine Department of Medicine [facility] documented in this encounter Plan of Treatment Not on filedocumented as of this encounter Visit Diagnoses Not on filedocumented in this encounter Care Teams Certified Tumor Registrar Relationship Specialty Start Date End Date Elaine Palencia MD PCP - General 10/12/11 [address] [place] [address] documented as of this encounter
--- OUTSIDE RECORDS SUMMARY | 2022-02-24 00:15 | XMS_ITS | Encounter Summary ---
:1965 [place] [address] Care Team Providers Name Role Phone Elaine Palencia MD Primary Care Provider Encounter Details Date Type Department Care Team Description 07/24/2016 Hospital Encounter Radiology Library at Hugh Gutierres MD [facility] [place] [address] MEDICINE [phone] [place] [address] (Wo rk) Social History Tobacco Use Types [...] Reported on 09/07/2016 0 07/24/2016 09/25/2016 Tablet DULoxetine (CYMBALTA) 30 take 1 capsule by [...] Associated Diagnosis Comme nts FILM LIBRARY Routine 07/24/2016 12:00 AM Pain Results for this STORAGE ONLY MR EST procedure ar e in SPINE the results section. documented in this encounter Results Film Library- Storage Only MR Spine (07/24/2016 12:00 AM EST) Specimen (Source) Anatomical Location Collection Method / Collectio n Time Received Time / Laterality Volume Narrative [facility] - 07/25/2016 12:39 PM EST This exam is for storage only and is aut o-finalizing. Rani Gutierres MD IMG FILM LIBRARY ORDERABLES Performing Organization Address City/State/ZIP Code Phon e Number [place], [place] documented in this encounter Visit Diagnoses Diagnosis Pain Generalized pain documented in this encounter Care Teams Vice President Network Development Relationship Specialty Start Date End Date Elaine Palencia MD PCP - General 10/12/11 [address] [place] [address] documented as of this encounter
--- OUTSIDE RECORDS SUMMARY | 2022-02-24 00:15 | XMS_ITS | Encounter Summary ---
:1965 Author Organization [facility] [place] [address] Care Team Providers Name Role Phone Elaine Palencia MD Primary Care Provider Encounter Details Date Type Department Care Team Description 04/11/2016 Telephone Care Management Alana Mcclellan, [place] [address] Social History Tobacco Use Types Packs/Day Years Used Date Never Smoker Alcohol Use Standard Drinks/Week Comments No 0 (1 standard drink = 0.6 oz pure alcoho l) Sex Assigned at Date Recorded Not on file documented as of this encounter Miscellaneous Notes Telephone Encounter - Alana Mcclellan, FIRER KILN - 04/11/2016 11:24 AM EDT [facility] FOLLOW UP CONTINUING CARE MANAGEMENT SOCIAL WORK ? CLAIM # [id number] DOI: ??04/28/15 INSURANCE COMAPANY: [employer] CONTACT:Black Top Roller Judi Cao [facility] Rani Santos PHONE: [phone] FAX: [phone] Bench Worker Apprentice: Bere Farrell Pt call t follow up on several issues. 1) she did locate and has now seen a CBT therapist twice to cope with her pain. [facility] attempted to refer pt to this therapist but her message said she was not taking new pt. Pt was able to get an appointment with the help of her PCP. Pt is out of cream and has now hear that work comp had a doctor review her medical chart and decidedthat she did not need the cream. We discussed access to cream via [facility]. [facility] sent pack of information on how to order through [facility] and a copy of the original compounded formula to pt who will pat to her PCP and see if they will prescribe for her. Pt continues to prefer to try acupuncture first before considering injection suggested by Dr Antonio. [facility] is preparing Prior authorization for this. [facility] is available to all parties as needed. documented in this encounter Plan of Treatment Not on filedocumented as of this encounter Visit Diagnoses Not on filedocumented in this encounter Care Teams Handbag Operator Relationship Specialty Start Date End Date Elaine Palencia MD PCP - General 10/12/11 [address] [place] [address] documented as of this encounter
--- OUTSIDE RECORDS SUMMARY | 2022-02-24 00:15 | XMS_ITS | Encounter Summary ---
:1965 Author Organization [facility] [place] [address] Care Team Providers Name Role Phone Elaine Palencia MD Primary Care Provider Reason for Visit Reason Onset Date Comments Appointment 11/18/2015 needs to cordinate a ppt with adrienne if possible Encounter Details Date Type Department Care Team Description 11/18/2015 Telephone [place] [facility] [place]son Beck Appointment (needs to [facility] MD Vidhi cordinate appt with Drive [facility] adrienne if possible) [place] [address] ORTHOPAEDIC SURG [place], [place] [address] (Wo rk) Social History Tobacco Use Types Packs/Day Years Used Date Never Smoker Alcohol Use Standard Drinks/Week Comments No 0 (1 standard drink = 0.6 oz pure alcoho l) Sex Assigned at Date Recorded Not on file documented as of this encounter Miscellaneous Notes Telephone Encounter - Neda Rodrigues - 11/19/2015 8:05 AM EDT Instructions from Shayla entered in referral notes. CCT will call pt to schedule. Telephone Encounter - Shayla Lord - 11/19/2015 7:06 AM EDT See message back in Remind Me folder. Telephone Encounter - Lg Sapp - 11/18/2015 2:12 PM EDT For clarification, Dr. Leavitt would like the patient to see Dr. Beck if possible. Patient has not seen Dr. Beck before to the best that I can see in the chart Telephone Encounter - Lg Sapp - 11/18/2015 2:09 PM EDT Who is calling: Rani Gutierres MD, calling on behalf of patient (leslie heard) Was this a new injury? no What is the question: Dr calling for Rani so we can coordinate appts for the patient with Dr. Gutierres, pain management and Dr. Beck. Can we please call patient and get this coordinated or at the very least get dates Dr. Beck will be available. Or get her in with another provider. 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 Best number to reach the caller: [phone] please call patient to coordinate documented in this encounter Plan of Treatment Not on filedocumented as of this encounter Visit Diagnoses Not on filedocumented in this encounter Care Teams Key Person Relationship Specialty Start Date End Date Elaine Palencia MD PCP - General 10/12/11 [address] [place] [address] documented as of this encounter
--- OUTSIDE RECORDS SUMMARY | 2022-02-24 00:15 | XMS_ITS | Encounter Summary ---
:1965 Author Organization [facility] [place] [address] Care Team Providers Name Role Phone Elaine Palencia MD Primary Care Provider Reason for Visit Reason Comments Other f/u Encounter Details Date Type Department Care Team Description 01/04/2012 Follow-Up [place]ology [place] [facility] [place] Lesley Reyna pain, right [facility] Flo Conroy DO (Primary Dx) [place] [address] [place] [address] RHEUMATOLOGY [place], [place] [address] Social History Tobacco Use Types Packs/Day Years Used Date Never Smoker Sex Assigned at Date Recorded Not on file documented as of this encounter Last Filed Vital Signs Vital Sign Reading Time Taken Comments Blood Pressure 114/72 01/04/2012 9:01 AM EDT Pulse 70 01/04/2012 9:01 AM EDT Temperature - - Respiratory Rate - - Oxygen Saturation - - Inhaled Oxygen Concentration - - Weight 51.3 kg (113 lb) 01/04/2012 9:01 AM EDT Height 165.1 cm (5' 5) 01/04/2012 9:01 AM EDT Body Mass Index 18.8 01/04/2012 9:01 AM EDT documented in this encounter Progress Notes Violeta Reyna DO - 01/04/2012 10:16 AM EDT MUSCULOSKELETAL ULTRASOUND REPORT EXAM: Right/Left Hand Date of service: 01/04/2012 Indication for Exam: Right hand pain near second MCP B-mode ultrasound is performed utilizing an 8-18 mHz linear probe. Static real- time views in longitudinal and transverse (short axis) orientation were obtained in this 46 y.o. female. Images are available on the Rheumatology USB Archive. Images of the right 2nd Metacarpo-phalangeal joints (MCPJ) demonstrate no cortical irregularity or destruction. Synovial fluid and/or hypertrophy are not noted at the joint margins. Flexor tendons are intact with no tenosynovial fluid or distension. Images of the right 2nd Proximal inter-phalyngeal joint (PIPJ) demonstrate no cortical irregularity or destruction. Synovial fluid and/or hypertrophy re not noted at the joint margins. Flexor tendons are intact with no tenosynovial fluid or distension. Power doppler evaluation: No increased hypervascularity signal to suggest active synovitis or inflammatory effusion. IMPRESSION: Normal ultrasound of the right 2nd MCP and PIP joints. documented in this encounter Plan of Treatment Not on filedocumented as of this encounter Visit Diagnoses Diagnosis Hand pain, right - Primary Pain in limb documented in this encounter Care Teams Security And Privacy Consultant Relationship Specialty Start Date End Date Elaine Palencia MD PCP - General 10/12/11 [address] [place] [address] documented as of this encounter
--- OUTSIDE RECORDS SUMMARY | 2022-02-24 00:15 | XMS_ITS | Encounter Summary ---
:1965 Author Organization [facility] [place] [address] Care Team Providers Name Role Phone Elaine Palencia MD Primary Care Provider Encounter Details Date Type Department Care Team Description 04/04/2016 Telephone Pain Management at Tiffanie Freeman, [place] [address] Social History Tobacco Use Types Packs/Day Years Used Date Never Smoker Alcohol Use Standard Drinks/Week Comments No 0 (1 standard drink = 0.6 oz pure alcoho l) Sex Assigned at Date Recorded Not on file documented as of this encounter Miscellaneous Notes Telephone Encounter - Tiffanie Rabago RN - 04/04/2016 11:09 AM EDT Called patient and left a message requesting patient to notify [facility] for refill request. Telephone Encounter - Tiffanie Rabago RN - 04/04/2016 11:09 AM EDT ----- Message from Salima Munoz sent at 04/04/2016 10:00 AM EDT ----- Regarding: FW: Help with pain cream refill ----- Message ----- From: Olu Antonio DO Sent: 04/04/2016 9:20 AM To: [facility] Boiling House Oiler Subject: FW: Help with pain cream refill Can [facility] send me a refill request? ----- Message ----- From: Tiffanie Rabago RN Sent: 03/30/2016 10:12 AM To: Olu Dougherty DO Subject: FW: Help with pain cream refill [facility] patient ----- Message ----- From: Rani Gutierres MD Sent: 03/30/2016 10:03 AM To: LUIS ANTONIO Whitaker, [facility] Nurse Subject: Help with pain cream refill Hi, all. The pain cream Dr. Antonio prescribed is helping. Could you help with refills? Thanks! [facility] documented in this encounter Plan of Treatment Not on filedocumented as of this encounter Visit Diagnoses Not on filedocumented in this encounter Care Teams Mold Burner Relationship Specialty Start Date End Date Elaine Palencia MD PCP - General 10/12/11 [address] [place] [address] documented as of this encounter
--- OUTSIDE RECORDS SUMMARY | 2022-02-24 00:15 | XMS_ITS | Encounter Summary ---
:1965 [place] [address] Care Team Providers Name Role Phone Elaine Palencia MD Primary Care Provider Encounter Details Date Type Department Care Team Description 06/03/2015 Hospital Encounter Radiology Library at [facility], [place] [address] Social History Tobacco Use Types Packs/Day [...] Associated Diagnosis Comme nts FILM LIBRARY Routine 06/03/2015 12:00 AM Pain Results for this STORAGE ONLY MR EDT procedure ar e in ANKLE the results section. documented in this encounter Results Film Library- Storage only MR Ankle (06/03/2015 12:00 AM EDT) Specimen (Source) Anatomical Location Collection Method / Collectio n Time Received Time / Laterality Volume Narrative [facility] - 07/23/2015 1:38 PM EST See PACS for result report. Dr Srinivasan [facility] IM FILM LIBRARY ORDERABLES Performing Organization Address City/State/ZIP Code Phon e Number [place], [place] documented in this encounter Visit Diagnoses Diagnosis Pain Generalized pain documented in this encounter Care Teams Flight Manager Relationship Specialty Start Date End Date Elaine Palencia MD PCP - General 10/12/11 [address] [place] [address] documented as of this encounter
--- OUTSIDE RECORDS SUMMARY | 2022-02-24 00:15 | XMS_ITS | Encounter Summary ---
:1965 Author Organization [facility] Address [facility] [place] [address] Care Team Providers Name Role Phone Elaine Palencia MD Primary Care Provider Encounter Details Date Type Department Care Team Description 10/12/2011 [place] [facility] [place] [address] [facility] [address] Olivier [place] [phone] Social History Tobacco Use Types Packs/Day Years Used Date Never Smoker Sex Assigned at Date Recorded Not on file documented as of this encounter Medications at Time of Discharge Medication Sig Dispensed Refills Start Date End Date amlodipine (NORVASC) 5 mg Take 5 mg by mouth 0 tablet daily. ibuprofen (ADVIL;MOTRIN) Take 400 mg by 0 011 04/05/2017 200 mg Tablet mouth. traMADol (ULTRAM) 50 mg Take 1 tablet by 90 tablet 3 201101/04/2012 tablet mouth 3 times daily. zolmitriptan (ZOMIG) 5 mg 5 MG = 1 Tablet(s), 0 0 04/01/2007 01/04/2012 tablet PO, Twice daily PRN zolmitriptan (ZOMIG) 5 mg 1 [place](s), Nasal, 0 01/04/2012 nasal solution Twice daily PRN zonisamide (ZONEGRAN) 100 100 MG = 1 0 04/01/2007 01/04/2012 mg capsule Capsule(s), PO, QHS citalopram (CELEXA) 40 mg 40MG, PO, Once 0 200511/18/2015 tablet daily ketoprofen (ORUDIS) 75 mg 75M Capsule(s), 0 0 10/10/2005 07/20/2016 capsule PO, Twice daily PRN documented as of this encounter Plan of Treatment Not on filedocumented as of this encounter Procedures Procedure Name Priority Date/Time Associated Diagnosis Comme nts XR LUMBAR SPINE 2 Routine 10/12/2011 3:03 PM Back pain Resu lts for this OR 3 VIEWS EST procedure are i n the results [...] MRI. Rupinder Gonzales MD IMG DX ORDERABLES documented in this encounter Visit Diagnoses Diagnosis Back pain Backache, unspecified documented in this encounter Care Teams Roadside Mechanic Relationship Specialty Start Date End Date Elaine Palencia MD PCP - General 10/12/11 [address] [place] [address] documented as of this encounter
--- OUTSIDE RECORDS SUMMARY | 2022-02-24 00:15 | XMS_ITS | Encounter Summary ---
:1965 Author Organization [facility] [place] [address] Care Team Providers Name Role Phone Elaine Palencia MD Primary Care Provider Encounter Details Date Type Department Care Team Description 09/08/2011 Orders Only [place] [facility] [place]up[place] Gonzales MD [address] [phone] RHEUMATOLOGY [phone] [place], [place] [address] (Wo rk) Social History Tobacco Use Types Packs/Day Years Used Date Never Assessed Sex Assigned at Date Recorded Not on file documented as of this encounter Plan of Treatment Not on filedocumented as of this encounter Procedures Procedure Name Priority Date/Time Associated Diagnosis Comme nts FILM LIBRARY Routine 09/08/2011 9:59 AM Results f or this STORAGE ONLY DX EST procedure ar e in HAND the results section. documented in this encounter Results FILM LIBRARY- STORAGE ONLY DX HAND (09/08/2011 9:59 AM EST) Specimen (Source) Anatomical Collection Method Collection Time Re ceived Time Location / / Volume Laterality 09/08/2011 9:59 AM EST Narrative RAD - 01/27/2014 1:46 PM EDT This is a non-reportable exam. Procedure Note Cm Baer - 01/27/2014Formatting of t his note might be different from the original. This is a non-reportable exam. Rupinder Gonzales MD IMG FILM LIBRARY ORDERABLES Performing Organization Address City/State/ZIP Code Phon e Number [facility] [address] [facility] [place] [address] documented in this encounter Visit Diagnoses Not on filedocumented in this encounter Care Teams Tube Sizer And Cutter Operator Relationship Specialty Start Date End Date Elaine Palencia MD PCP - General 10/12/11 [address] [place] [address] documented as of this encounter
--- NOTE | 2022-02-24 08:00 | DI.MRI_ITS ---
Exam(s) MR LOWER JOINT RT WO EXAM: MR LOWER JOINT RT WO CLINICAL HISTORY: PAIN, ? QUADRICEPS INJURY,INTERNAL DERANGEMENT ,M23.91. TECHNIQUE: Multiplanar multisequence MRI was performed. COMPARISON: CR XR KNEE RT 4V AP,LAT,ANIKA,PAT from 06/20/2021 MR MR LOWER JOINT LT WO from 02/24/2022 FINDINGS: BONES: Scattered areas of hyperintense signal are seen in the bone marrow particularly in the medial aspect of the medial femoral condyle which may represent a contusion. JOINTS: Articular cartilage is unremarkable. No effusion is present. TENDONS: Extensor mechanism: Unremarkable. Medial retinaculum: Unremarkable. Lateral retinaculum: Unremarkable. Popliteus: Unremarkable. MUSCLES: Unremarkable. MENISCI: The medial meniscus is unremarkable. The lateral meniscus is unremarkable. SOFT TISSUES: There is a small popliteal cyst. LIGAMENTS: Anterior Cruciate: Unremarkable. Posterior Cruciate: Unremarkable. Medial Collateral:Unremarkable. Lateral Collateral: Unremarkable. OTHER: IMPRESSION: 1. No evidence of a quadriceps tendon tear. 2. No evidence of a meniscal or ligament tear. 3. Bony contusions. 4. Small popliteal cyst. DATA REPOSITORY:
--- NOTE | 2022-02-24 08:00 | DI.MRI_ITS ---
Exam(s) MR LOWER JOINT LT WO EXAM: MR LOWER JOINT LT WO CLINICAL HISTORY: PAIN, ? QUADRICEPS INJURY,INTERNAL DERANGEMENT,M23.92. TECHNIQUE: Multiplanar multisequence MRI was performed. COMPARISON: CR XR KNEE LT 3V AP,LAT,ANIKA from 04/25/2021 FINDINGS: BONES: There are scattered areas of hyperintense signal in the bone marrow particularly in the medial aspect of the medial femoral condyle which may represent a contusion. No evidence of an occult frac ture or avascular necrosis. JOINTS: Articular cartilage is unremarkable. No effusion is present. TENDONS: Extensor mechanism: Unremarkable. Medial retinaculum: Unremarkable. Lateral retinaculum: Unremarkable. Popliteus: Unremarkable. MUSCLES: Unremarkable. MENISCI: The medial meniscus is unremarkable. The lateral meniscus is unremarkable. SOFT TISSUES: Unremarkable. LIGAMENTS: Anterior Cruciate: Unremarkable. Posterior Cruciate: Unremarkable. Medial Collateral:Unremarkable. Lateral Collateral: Unremarkable. OTHER: There is a small popliteal cyst. IMPRESSION: 1. No evidence of a meniscal or ligament tear. 2. No evidence of quadriceps injury. 3. Marrow edema which may represent contusions. DATA REPOSITORY:
== END ==
PROVIDERS: PCP Family Medicine; Visit Provider Student in an Organized Health Care Education/Training Program
DX: M23.8X1 Other internal derangements of right knee; M23.8X2 Other internal derangements of left knee; M25.561 Pain in right knee; M25.562 Pain in left knee; M71.21 Synovial cyst of popliteal space [Baker], right knee
CPT/HCPCS: 73721

== ENCOUNTER 2022-09-05 01:31 | Outpatient (CLI) | payer OTHER, SELFPAY ==
--- NOTE | 2022-09-05 12:15 | DI.MAMMO_ITS ---
Exam(s) MAMMO SCREENING EXAM: MAMMO SCREENING CLINICAL HISTORY: screening. TECHNIQUE: Bilateral full field digital CC and MLO mammographic images were obtained with 3D tomosyn thesis and utilizing computer aided detection (CAD). COMPARISON: Prior mammograms were reviewed. FINDINGS: There has been no significant change in the appearance and distribution of the fibroglandular tissue. There are no CAD designations. There are no new spiculated masses nor malignant appearing microcalcification groups. There is no significant architectural distortion nor skin thickening-retraction. IMPRESSION: No radiographic evidence of malignancy. BI-RADS Category 1 - Negative Breast Density - Category B - Scattered areas of fibroglandular density Breast density Category C or D implies that the patient has dense breast tissue. Dense breast tissue can make it harder to find cancer on a mammogram. Dense breast tissue is also associated with an incr eased risk of breast cancer. This information about the result of the mammogram report was provided to the patient to raise their awareness. Use this report when you speak with the patient about their risks for breast cancer, which includes their family history. At that time, you may recommend additional screening tests (Ultrasoun d or MRI) as these tests may add significant information. A negative radiographic report should not delay biopsy if a dominant or clinically suspicious mass is present. Up to ten percent of cancers are not identified on mammography. A negative report may reinforce clinical impression. Adenosis and dense breasts may obscure an underlying neoplasm. False positive reports average 6 to 10%. Patient will receive a letter notifying them of these results.
== END 2022-09-05 01:51 ==
LOC: DI 01:31
PROVIDERS: PCP Family Medicine; Visit Provider Obstetrics & Gynecology Gynecology
DX: Z12.31 Encounter for screening mammogram for malignant neoplasm of breast (principal)
CPT/HCPCS: 77063; 77067

== ENCOUNTER 2022-12-07 02:19 | Outpatient (CLI) | payer OTHER, SELFPAY ==
--- NOTE | 2022-12-07 | DI.RAD_ITS ---
Exam(s) XR HIP RT COMPLETE AP PELVIS EXAM: XR HIP RT COMPLETE AP PELVIS CLINICAL HISTORY: RT HIP PAIN, MM25.551. TECHNIQUE: 2D digital imaging was performed. COMPARISON: No exams were available for comparison FINDINGS: 3 views No evidence of pelvic nor hip fracture. No joint space narrowing. No osteophytes. SI joints unrema rkable. IMPRESSION: No significant osseous findings. DATA REPOSITORY: RADIATION DOSE DELIVERED:
--- NOTE | 2022-12-07 | DI.RAD_ITS ---
Exam(s) XR SACROILIAC JOINTS EXAM: XR SACROILIAC JOINTS CLINICAL HISTORY: RT SACROILIAC PAIN,M53.3. TECHNIQUE: 2D digital imaging was performed. COMPARISON: CR XR HIP RT COMPLETE AP PELVIS from 12/07/2022 FINDINGS: 3 views No evidence of sacral nor pelvic fractures. Sacroiliac joints appear unremarkable. No radiographic evidence of sacroiliitis. There is no ankylo sis of the SI joints. Visualized hips unremarkable. IMPRESSION: No significant radiograph findings sacroiliac joints. DATA REPOSITORY: RADIATION DOSE DELIVERED:
== END 2022-12-07 02:39 ==
LOC: DI 02:19
PROVIDERS: PCP Family Medicine; Visit Provider Family Medicine
DX: M25.551 Pain in right hip (principal); M53.3 Sacrococcygeal disorders, not elsewhere classified
CPT/HCPCS: 72202; 73502

== ENCOUNTER → 2023-09-06 01:49 | Outpatient (CLI) | payer OTHER, SELFPAY ==
--- NOTE | 2023-09-06 12:42 | DI.MAMMO_ITS ---
Exam(s) MAMMO SCREENING EXAM: MAMMO SCREENING CLINICAL HISTORY: screening TECHNIQUE: Bilateral full field digital CC and MLO mammographic images were obtained with 3D tomosyn thesis and utilizing computer aided detection (CAD). COMPARISON: Available for comparison. FINDINGS: Masses/Architectural Distortion: None seen. Microcalcifications: No suspicious pleomorphic-type are seen. Skin Thickening/Nipple Retraction: None. IMPRESSION: 1. No significant interval change with no specific features of malignancy noted. 2. Unless there is more urgent need, screening mammography is recommended, as per [employer] guidelines. BI-RADS Category 1 - Negative Breast Density - Category B - Scattered areas of fibroglandular density Breast density category C or D implies that the patient has dense breast tissue. Dense breast tissue is very common and is not abnormal but dense breast tissue can make it harder to find cancer on a ma mmogram. Also, dense breast tissue may increase their breast cancer risk. This information about the result of the mammogram report was provided to the patient to raise their awareness. Use this report when you speak with the patient about their risks for breast cancer, which includes their family hist ory. At that time, you may recommend for more screening tests (Ultrasound or MRI) as they might be us eful based on their risk. A negative radiographic report should not delay biopsy if a dominant or clinically suspicious mass is present. Up to ten percent of cancers are not identified on mammography. A negative report may reinforce clinical impression. Adenosis and dense breasts may obscure an underlying neoplasm. False positive reports average 6 to 10%. Patient will receive a letter notifying them of these results.
== END ==
PROVIDERS: PCP Family Medicine; Visit Provider Obstetrics & Gynecology Gynecology
DX: Z12.31 Encounter for screening mammogram for malignant neoplasm of breast (principal)
CPT/HCPCS: 77063; 77067

== ENCOUNTER 2023-11-26 14:15 | Outpatient (REF) | payer OTHER, SELFPAY ==
[2023-11-26 19:04] LABS: HCT 39.8 % (36.0-46.0); HGB 13.2 g/dL (11.2-15.7); MCH 32.7 pg (27.0-33.0); MCHC 33.2 % (32.0-36.0); MCV 99 fL (80-95); MPV 9.9 fL (8.0-11.0); Platelet Count 199 10^3/uL (130-400); RBC 4.04 10^6/uL (3.93-5.22); RDW 11.4 % (11.7-14.6); RDW-SD 41.6 fL; WBC 3.73 10^3/uL (4.4-10.8)
[2023-11-26 19:29] LABS: ALT 40 U/L (14-59); AST 24 U/L (15-37); Alkaline Phosphatase 83 U/L (46-116); Anion Gap 8.5 mmol/L (3-11); BUN 15 mg/dL (7-18); Bilirubin, Total 0.2 mg/dL (0.2-1.0); CO2 29.5 mmol/L (21.0-32.0); CREATININE 0.6 mg/dL (0.55-1.02); Calculated LDL 122 mg/dL (<100); Chloride 104 mmol/L (98-107); Cholesterol 214 mg/dL (<200); Estimated GFR 103.98 (mL/min/1.73m2); Glucose 91 mg/dL (74-106); HDL Cholesterol 72 mg/dL (40-60); Potassium 3.9 mmol/L (3.5-5.1); Sodium 142 mmol/L (136-145); Total Protein 6.8 g/dL (6.4-8.2); Triglyceride 102 mg/dL (<150)
== END 2023-11-26 14:16 | disposition home or self-care (01) ==
LOC: NCHCN 14:15
PROVIDERS: PCP Family Medicine; Visit Provider Family Medicine
DX: R53.83 Other fatigue (principal); Z13.6 Encounter for screening for cardiovascular disorders; E78.89 Other lipoprotein metabolism disorders
CPT/HCPCS: 80053; 80061; 85027; 84443

== ENCOUNTER 2024-08-11 16:35 | Outpatient (REF) | payer OTHER, SELFPAY ==
--- NOTE | 2024-08-11 14:20 | PAPFT_PTH ---
PATIENT: Nara Huerta LOC: [facility] U#:[id number] AGE/SX: 58/F ROOM: RE08/11/[address]: Beverley Munoz : 1965 BED: DIS: 08/11/2024 SPEC #: [id number] RECD: 08/11/24 17:42 STATUS: FABRICE REQ #: [id number] SUMIT: 08/11/24 14:[address]: Beverley Munoz DEPT: [facility] Cytology RECD BY: Cami Ratliff ENTERED: 08/11/24 17:42 SP TYPE: PAPFT OTHR DR: Elaine Palencia Tissues: 1 - CX/ENDOCX FOR PAP SMEARS Procedures: PAP THIN PREP/UVM Screening HPV DNA PROBE Comments: [id number] (HPV 16 & 18/45)
== END 2024-08-11 16:36 | disposition home or self-care (01) ==
LOC: LBN 16:35
PROVIDERS: PCP Family Medicine; Visit Provider Obstetrics & Gynecology Gynecology
DX: Z11.51 Encounter for screening for human papillomavirus (HPV) (principal); Z01.419 Encounter for gynecological examination (general) (routine) without abnormal findings
CPT/HCPCS: 88142; 87624

== ENCOUNTER 2024-09-08 02:54 | Outpatient (CLI) | payer OTHER, SELFPAY ==
--- NOTE | 2024-09-08 07:30 | DI.MAMMO_ITS ---
Exam(s) MAMMO SCREENING EXAM: MAMMO SCREENING CLINICAL HISTORY: screening,Z12.39 TECHNIQUE: Bilateral full field digital CC and MLO mammographic images were obtained with 3D tomosyn thesis and utilizing computer aided detection (CAD). COMPARISON: Available for comparison. FINDINGS: Masses/Architectural Distortion: None seen. Microcalcifications: No suspicious pleomorphic-type are seen. Skin Thickening/Nipple Retraction: None. IMPRESSION: 1. No significant interval change with no specific features of malignancy noted. 2. Unless there is more urgent need, screening mammography is recommended, as per [employer] guidelines. BI-RADS Category 1 - Negative Breast Density - Category B - Scattered areas of fibroglandular density Breast density category C or D implies that the patient has dense breast tissue. Dense breast tissue is very common and is not abnormal but dense breast tissue can make it harder to find cancer on a ma mmogram. Also, dense breast tissue may increase their breast cancer risk. This information about the result of the mammogram report was provided to the patient to raise their awareness. Use this report when you speak with the patient about their risks for breast cancer, which includes their family hist ory. At that time, you may recommend for more screening tests (Ultrasound or MRI) as they might be us eful based on their risk. A negative radiographic report should not delay biopsy if a dominant or clinically suspicious mass is present. Up to ten percent of cancers are not identified on mammography. A negative report may reinforce clinical impression. Adenosis and dense breasts may obscure an underlying neoplasm. False positive reports average 6 to 10%. Patient will receive a letter notifying them of these results.
== END 2024-09-08 03:14 ==
LOC: DI 02:54
PROVIDERS: PCP Family Medicine; Visit Provider Obstetrics & Gynecology Gynecology
DX: Z12.31 Encounter for screening mammogram for malignant neoplasm of breast (principal); R92.323 Mammographic fibroglandular density, bilateral breasts
CPT/HCPCS: 77063; 77067

== ENCOUNTER 2024-09-12 16:24 | Outpatient (REF) | payer OTHER, SELFPAY ==
[2024-09-12 14:57] LABS: Bilirubin Small (Negative); Blood Negative (Negative); Clarity Clear (Clear); Glucose 100 mg/dL (Negative); Ketones Trace mg/dL (Negative); Leukocyte Esterase Negative (Negative); Nitrite Negative (Negative); pH 6.5 (5-8)
== END 2024-09-12 16:25 | disposition home or self-care (01) ==
LOC: LBN 16:24
PROVIDERS: PCP Family Medicine; Visit Provider Urology
DX: N39.0 Urinary tract infection, site not specified (principal); R82.89 Other abnormal findings on cytological and histological examination of urine
CPT/HCPCS: 81003; 87086

== ENCOUNTER 2025-01-29 10:23 | Outpatient (CLI) | payer OTHER, SELFPAY ==
--- NOTE | 2025-01-29 | DI.RAD_ITS ---
Exam(s) XR LUMBAR SPINE COMPLETE EXAM: XR LUMBAR SPINE COMPLETE CLINICAL HISTORY: CHRONIC LOW BACK PAIN, M54.50. TECHNIQUE: 2D digital imaging was performed. COMPARISON: No exams were available for comparison FINDINGS: Five views. No evidence of fracture or listhesis nor pars defects. There is asymmetric disc space narrowing at L2-3 level, more so on the right side. No other disc spa ce narrowing evident. Some facet arthropathy noted at the lower 2 levels. Sacroiliac joints appear unremarkable. No osseous lesions. There is mild degenerative scoliosis convex left. IMPRESSION: Asymmetric disc space narrowing on the right side at L2-3 level. There is probably right-sided sakshi inal stenosis at this level. Other findings as above. DATA REPOSITORY: RADIATION DOSE DELIVERED:
--- NOTE | 2025-01-29 | DI.RAD_ITS ---
Exam(s) XR HIP RT COMPLETE AP PELVIS EXAM: XR HIP RT COMPLETE AP PELVIS CLINICAL HISTORY: RT HIP PAIN, M25.551. TECHNIQUE: 2D digital imaging was performed. COMPARISON: CR XR HIP RT COMPLETE AP PELVIS from 12/07/2022 FINDINGS: 3 views No evidence of pelvic nor hip fractures. Additional frog-lateral view of right hip reveals no obviou s degenerative changes. Bone density normal. No osseous lesions. IMPRESSION: No acute osseous findings in the pelvis and hips. See separate lumbar spine dictation. DATA REPOSITORY: RADIATION DOSE DELIVERED:
== END 2025-01-29 10:43 ==
PROVIDERS: PCP Family Medicine; Visit Provider Family Medicine
DX: M51.26 Other intervertebral disc displacement, lumbar region (principal); M25.551 Pain in right hip
CPT/HCPCS: 72110; 73502

== ENCOUNTER 2025-05-22 12:24 | Outpatient (REF) | payer OTHER, SELFPAY ==
[2025-05-22 18:03] LABS: HCT 42.4 % (36.0-46.0); HGB 14.1 g/dL (11.2-15.7); MCH 32.5 pg (27.0-33.0); MCHC 33.3 % (32.0-36.0); MCV 98 fL (80-95); MPV 10.2 fL (8.0-11.0); Platelet Count 222 10^3/uL (130-400); RBC 4.34 10^6/uL (3.93-5.22); RDW 11.9 % (11.7-14.6); RDW-SD 43.0 fL; WBC 4.78 10^3/uL (4.4-10.8)
== END 2025-05-22 12:25 | disposition home or self-care (01) ==
LOC: NCHCN 12:24
PROVIDERS: PCP Family Medicine; Visit Provider Family Medicine
DX: R23.3 Spontaneous ecchymoses (principal)
CPT/HCPCS: 80053; 80061; 85027; 86850; 86900; 86901; 85025

== ENCOUNTER 2025-06-16 02:07 | Outpatient (CLI) | payer OTHER, SELFPAY ==
--- NOTE | 2025-06-16 06:45 | DI.MRI_ITS ---
Exam(s) MR LUMBAR SPINE WO EXAM: MR LUMBAR SPINE WO CLINICAL HISTORY: PAIN,LUMBAR SPONDYLOSIS,M47.816. TECHNIQUE: Multiplanar multisequence MRI of the Lumbar spine was performed. COMPARISON: CR XR LUMBAR SPINE COMPLETE from 01/29/2025 FINDINGS: Bones: The last intervertebral disc space is designated the L5/S1 level for the numbering purpose of this examination. Cord: The conus tip ends at the T12 level. It is of normal size and signal intensity. T12-L1: No focal disc herniation is present. No central spinal canal stenosis.No neural foraminal stenosis. L1-2: No focal disc herniation is present. No central spinal canal stenosis.No neural foraminal stenosis. L2-3:Asymmetric narrowing of the right side of the L2-3 disc, with endplate osteophytes projecting mainly anteriorly. This causes a mild levoscoliosis. There is diffuse disc bulging. There are degenerative changes in the endplates, Modic type 1. no focal disc herniation is present. No central spinal canal stenosis.No neural foraminal stenosis. L3-4: Disc height is maintained.No focal disc herniation is present. No central spinal canal stenosis.No neural foraminal stenosis. L4-5:There is asymmetric loss of disc height toward the left. There are endplate osteophytes and Modic type 2 changes in the endplates. There is mild disc bulging. No focal disc herniation is present. There are mild facet joint degenerative changes. No central spinal canal stenosis.No neural foraminal stenosis. L5-S1: The disc height is maintained.No focal disc herniation is present. There are mild facet degenerative changes. No central spinal canal stenosis.No neural foraminal stenosis. The visualized SI joints and sacrum are unremarkable. Soft tissues: The paraspinal soft tissues are unremarkable. IMPRESSION: Degenerative disc changes at L2-3 and L4-5. No evidence of significant spinal stenosis or neuroforaminal narrowing. No focal disc herniation. DATA REPOSITORY:
--- NOTE | 2025-06-16 06:51 | DI.MRI_ITS ---
Exam(s) MR LOWER JOINT BI WO EXAM: MR LOWER JOINT BI WO CLINICAL HISTORY: RT HIP PAIN, M25.551,SI JOINT DYSFUNCTION BOTH SIDES,M53.3 TECHNIQUE: Multiplanar multisequence MRI of Pelvis was performed COMPARISON: CR XR HIP RT COMPLETE AP PELVIS from 01/29/2025 FINDINGS: Bones: There is no fracture or contusion pattern. No bone marrow edema is seen. Joints: No significant joint effusion present. The SI joints and symphysis pubis are well maintained. No abnormal signal in in the SI joints. Musculotendinous structures: Musculotendinous structures demonstrate no abnormality. Intrapelvic structures: Small uterine fibroids. IMPRESSION: No visible abnormality of the sacroiliac joints. DATA REPOSITORY:
== END 2025-06-16 02:27 ==
PROVIDERS: PCP Family Medicine; Visit Provider Student in an Organized Health Care Education/Training Program
DX: M47.816 Spondylosis without myelopathy or radiculopathy, lumbar region (principal); M53.3 Sacrococcygeal disorders, not elsewhere classified
CPT/HCPCS: 73721; 72148

== ENCOUNTER 2025-09-02 11:37 | Outpatient (REF) | payer OTHER, SELFPAY | END 2025-09-02 11:38 | disposition home or self-care (01) | LOC: LBN 11:37 | PROVIDERS: PCP Family Medicine; Visit Provider Nurse Practitioner Obstetrics & Gynecology | DX: R30.0 Dysuria (principal); N76.0 Acute vaginitis | CPT/HCPCS: 87077; 87086; 87186; 87480; 87510; 87660 ==